=== PATIENT | male | born 1945 | race Caucasian/White ===

== ENCOUNTER 2021-10-11 05:31 | Observation (INO) ==
--- NOTE | 2021-07-19 23:34 | PAT Medication Instructions ---
Medication Instructions Date of Service July 19, 2021 Home Medications hydrochlorothiazide 12.5 mg capsule 25 mg PO QDD amlodipine 5 mg tablet 5 mg PO HS apixaban 5 mg tablet (Eliquis) 5 mg PO BID cholecalciferol (vitamin D3) 25 mcg (1,000 unit) capsule 25 mcg PO QDD losartan 100 mg tablet 100 mg PO QDD metformin 500 mg tablet 500 mg PO QPM metoprolol tartrate 50 mg tablet 50 mg PO BID Spectravite Adult 1 tab PO DAILY tamsulosin 0.4 mg capsule (Flomax) 0.8 mg PO QPM atorvastatin 20 mg tablet 20 mg PO HS echinacea 400 mg capsule 400 mg PO UD PRN loxapine succinate 5 mg capsule 15 mg PO QPM ASK your prescriber and surgeon apixaban 5 mg tablet (Eliquis) 5 mg PO BID STOP taking 2 weeks before surgery (or as soon as possible if surgery is within 2 weeks) echinacea 400 mg capsule 400 mg PO UD PRN Take morning of surgery With a small sip of water, OTHERWISE NOTHING TO EAT OR DRINK AFTER MIDNIGHT: metoprolol tartrate 50 mg tablet 50 mg PO BID Take evening before surgery hydrochlorothiazide 12.5 mg capsule 25 mg PO QDD amlodipine 5 mg tablet 5 mg PO HS cholecalciferol (vitamin D3) 25 mcg (1,000 unit) capsule 25 mcg PO QDD losartan 100 mg tablet 100 mg PO QDD metformin 500 mg tablet 500 mg PO QPM metoprolol tartrate 50 mg tablet 50 mg PO BID Spectravite Adult 1 tab PO DAILY tamsulosin 0.4 mg capsule (Flomax) 0.8 mg PO QPM atorvastatin 20 mg tablet 20 mg PO HS loxapine succinate 5 mg capsule 15 mg PO QPM Other Notes If you have any questions please call us at [phone] or [phone] or [phone] or [phone]
--- NOTE | 2021-07-22 09:43 | Anesthesiology Consultation ---
Date of Service July 22, 2021 Assessment & Plan (1) Encounter for pre-operative examination: - COVID screening: Per assessment on 07/22: Travel screen 07/22, no known COVID-19 positive contacts or current COVID-19 related symptoms. Patient vaccinated. Surgeon arranging preop COVID testing. Awaiting results. - Cardiology office visit (03/04/21): "Patient describes stable cardiac signs and symptoms. He is in atrial fibrillation today, and I plan to increase his metoprolol with regards to helping with better rate control.. 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 Frequent brief asymptomatic salvos of supra ventricular tachycardia were observed, the longest of which was 12.1 seconds. Paroxysmal atrial fibrillation was also noted, with atrial fibrillation burden of 27%, average heart rate while in atrial fibrillation at 89 bpm. We will increase metoprolol." - Eliquis instructions: per surgeon/prescriber - Check BSG AM DOS Chart Review Chart Review: Acceptable Risk for Surgery (pending surgeon-ordered UA) and Patient seen in Pre Admission Testing Teaching & Discussion Pre-Anesthesia Teaching/Discussion Notes: Instructed NPO after midnight before surgery,except medications with 15 cc of water. Medication instructions provided according to the PAT guidelines. History Surgery Operation Date: 08/02/21 07:30 Proposed Procedures p Robotic Laparoscopic Assisted Radical Retropubic Prostatectomy, Possible Open, Possible Pelvic Lymph Node Dissection, Possible Suprapubic Tube Placement - Mike Simeon MD Height/Weight Height: 6 ft 3 in Weight: 85.2 kg Allergies Allergy/AdvReac Type Severity Reaction Status Date / Time No Known Allergies Allergy Unknown Verified 07/15/21 11:06 Medications Home Medications Medication Instructions Recorded Confirmed Last Taken hydrochlorothiazide 12.5 mg capsule 25 mg PO QDD cap 12/15/20 07/15/21 Unknown amlodipine 5 mg tablet 5 mg PO HS 06/01/21 07/15/21 Unknown apixaban 5 mg tablet (Eliquis) 5 mg PO BID 06/01/21 07/15/21 Unknown cholecalciferol (vitamin D3) 25 25 mcg PO QDD 06/01/21 07/15/21 Unknown mcg (1,000 unit) capsule losartan 100 mg tablet 100 mg PO QDD 06/01/21 07/15/21 Unknown metformin 500 mg tablet 500 mg PO QPM 06/01/21 07/15/21 Unknown metoprolol tartrate 50 mg tablet 50 mg PO BID 06/01/21 07/15/21 Unknown multivitamin-ferrous 1 tab PO DAILY 06/01/21 07/15/21 Unknown fumarate-folic acid 18 mg-400 mcg tablet (Spectravite Adult) tamsulosin 0.4 mg capsule (Flomax) 0.8 mg PO QPM cap 06/01/21 07/15/21 Unknown atorvastatin 20 mg tablet 20 mg PO HS 07/15/21 07/15/21 Unknown echinacea 400 mg capsule 400 mg PO UD PRN 07/15/21 07/15/21 Unknown loxapine succinate 5 mg capsule 15 mg PO QPM 07/15/21 07/15/21 Unknown Past Medical History Medical History Afib Follows with Dr. Norwood Enlarged prostate High blood pressure High cholesterol Pre-diabetes on Metformin, hgba1c 12/31/20 was 5.1% Prostate cancer Schizophrenia Dx , controlled with meds Exercise / Class Metabolic Activity II 4-5 Yardwork/Stairs/Walk up hill Past Family History Family History Father Esophageal cancer Past Surgical History Surgical History H/O prostate biopsy History of colonoscopy History of tonsillectomy and adenoidectomy Past Anesthesia History No Hx of Anesthesia Complications and No Family Hx of Anesthesia Complications History of PONV No Hx of PONV and No Hx of Motion Sickness Social History Smoking Status: Never smoker Do You Dip or Chew Tobacco: No Hx Alcohol Use: No Hx Substance Use: No substance use type: does not use Review of Systems Patient denies chest pain, shortness of breath, dyspnea on exertion, fever, chills, cough, wheezing, palpitations. Physical Exam Vital Signs VITALS BP 118/77 P 80 TEMP 97.8 SP02 98%Ra RESP 18 PHYSICAL Full cervical extension range of motion. Full TMJ range of motion. TMD 4 finger breaths Mallampati Score 3 Dentition: several missing sides/molars Lungs: clear throughout to auscultation Cardiac: regular rate and rhythm, no murmurs noted Spine: normal Carotid arteries: negative bruit Extremities: no edema Lab Results Anesthesia Preop Results Results Anesthesia Widget: WBC 6.79 K/uL (4.8-10.8) 07/22/21 Hgb 13.3 g/dL (14.0-18.0) L 07/22/21 Hct 39.6 % (42-52) L 07/22/21 Plt 372 K/uL (130-400) 07/22/21 Na 137 mmol/L (136-145) 07/22/21 K 3.7 mmol/L (3.5-5.1) 07/22/21 Cl 104 mmol/L (98-107) 07/22/21 CO2 27 mmol/L (21-32) 07/22/21 BUN 13 mg/dl (7-18) 07/22/21 Creat 0.98 mg/dl (0.6-1.4) 07/22/21 Glucose Level 101 mg/dl (70-99) H 07/22/21 Blood Type A Positive 07/22/21 Antibody Screen NEGATIVE 07/22/21 Testing Laboratory Results 12/31/20 HGBA1C 5.1% Electrocardiogram Date: 07/22/21 SR with first degree AVB at 76bpm. Otherwise normal ECG. unconfirmed report. Chest X-Ray Date: 07/22/21 COPD pattern. Interval development of opacity at the left base which might represent superimposition of structures or intrapulmonary lesion. This lesion was not definitely seen during CT of abdomen and pelvis performed on May 18, 2021 and could represent superimposition of structure or small atelectasis. Follow-up evaluation with PA and lateral chest radiograph in 4-6 weeks is recommended to document resolution. Report forwarded to PCP for continuity of care. At anesthesiologist discretion AM DOS if repeat CXR needed from their perspective* Echocardiogram Date: 09/07/20 LVEF 60-64%. No regional wall motion abnormality. There was A. fib during exam. Borderline increased concentric LV wall thickness. Mild MR.
[~2021-10-11 05:31] MED LIST: HEPARIN SOD 5,000 UNIT/0.5 ML VIAL SQ SCH; LACTATED RINGER'S 1,000 ML IV SCH; LR 15ML/HR IV SCH
[2021-10-11] MEDS ORDERED: VANCOMYCIN HCL 1,000 MG/270 ML BAG IV SCH (06:00)
[2021-10-11] MEDS ORDERED: HEPARIN SOD 5,000 UNIT/0.5 ML VIAL SQ SCH (06:00)
[2021-10-11] MEDS ORDERED: LR 15ML/HR IV SCH (06:00)
[2021-10-11] MEDS ORDERED: GLYCOPYRROLATE 0.2 MG/ML VIAL ONE (06:52)
[2021-10-11] MEDS ORDERED: LIDOCAINE 2% 2 ML VIAL/AMP(20MG/ML) INFIL ONE (06:52)
[2021-10-11] MEDS ORDERED: ROCURONIUM BROMIDE 10 MG/ML 5 ML VIAL IV ONE ×6 (06:52→10:38)
[2021-10-11] MEDS ORDERED: PROPOFOL IV EMULSION 10 MG/ML 20 ML VIAL IV ONE (06:52)
[2021-10-11] MEDS ORDERED: DEXAMETHASONE SOD INJ 4 MG/ML VIAL ONE (06:52)
[2021-10-11] MEDS ORDERED: ONDANSETRON INJ 2 MG/ML 2 ML VIAL ONE (06:52)
[2021-10-11] MEDS ORDERED: fentaNYL citrate 100 MCG/2 ML VIAL ONE ×2 (06:52→08:57)
[2021-10-11] MEDS ORDERED: ePHEDrine sulfate 50 MG/ML AMP IV PRN (07:16)
[2021-10-11] MEDS ORDERED: HYDROmorphone INJ 1 MG/ML SYRINGE IV PRN (07:16)
[2021-10-11] MEDS ORDERED: ONDANSETRON INJ 2 MG/ML 2 ML VIAL IV PRN ×2 (07:16→13:33)
[2021-10-11] MEDS ORDERED: MEPERIDINE HCL 25 MG/ML CARP/VIAL IV PRN (07:16)
[2021-10-11] MEDS ORDERED: PHENYLEPHRINE 100MCG/ML 5ML SYR IV PRN (07:16)
[2021-10-11] MEDS ORDERED: LABETALOL HCL IV 5 MG/ML 20ML IV PRN (07:16)
[2021-10-11] MEDS ORDERED: fentaNYL citrate 100 MCG/2 ML VIAL IV PRN (07:16)
[2021-10-11] MEDS ORDERED: ATROPINE SULFATE 0.1 MG/ML 10ML SYR IV PRN (07:16)
--- NOTE | 2021-10-11 07:22 | History & Physical Bridge Note ---
Date of Service October 11, 2021 History & Physical Bridge Note I have examined the patient, reviewed the History & Physical and in the interval since the performance of the History & Physical I have noted the following changes of clinical significance: no changes noted
[2021-10-11] MEDS ORDERED: BUPIVACAINE 0.5 % 5 MG/1 ML MPF 30ML VIAL ONE (07:28)
[2021-10-11] MEDS ORDERED: BELLADONNA/OPIUM SUPP 60 MG SUPP PR ONE (07:38)
[2021-10-11] MEDS ORDERED: PHENYLEPHRINE 100MCG/ML 5ML SYR ONE (08:57)
[2021-10-11] MEDS ORDERED: FLOSEAL HEMOSTATIC MATRIX 10ML TOP ONE (11:12)
[2021-10-11] MEDS ORDERED: NEOSTIGMINE METHYLSULFATE 1 MG/ML 10ML VIAL ONE (11:24)
--- NOTE | 2021-10-11 12:12 | Operative Report ---
PG Post Operative Report Pre & Post Diagnosis Operation Date: 10/11/21 07:30 Pre-Op Diagnosis: Prostate Cancer Post-Op Diagnosis: Prostate Cancer I identified the patient and participated in the time-out.: Yes Procedure Operation Date: 10/11/21 07:30 Actual Procedures p Robotic Laparoscopic Assisted Radical Retropubic Prostatectomy,Bilateral Pelvic Lymph Node Dissection(Not Applicable) - Mike Simeon MD Surgeon Augusto Simeon MD Crutching Contractor Kristie Lindsey; Dr. Gavin Mcgill Estimated Blood Loss 50 Findings Consistent with Post-Op Diagnosis Specimens 1. Periprostatic fat 2. Left pelvic lymph nodes 3. Right pelvic lymph nodes 4. Prostate and seminal vesicles. Description of Procedure The patient was identified in the preoperative holding area, appropriate informed consents were reviewed and completed, and he was transported to the operating suite. Subcutaneous heparin was administered in the pre-operative holding area. Upon arrival in the operating suite, he received appropriate antibiotics and general anesthesia. He was positioned in dorsal lithotomy, a B&O suppository was inserted after digital rectal exam, and he was prepped and draped in standard fashion. A Elias catheter was inserted in the sterile field. A Veress needle was passed per umbilicus with uniform insufflation of the abdomen to 15mmHg. He was placed in steep Trendelenburg position. A periumbilical incision was then made to accommodate a 12mm Visiport with 10mm 0degree laparoscope. Inspection of the abdomen was carried out, and there was no evidence of traumatic entry or injury secondary to the Veress needle. After confirming a clear anterior abdominal wall, ports were subsequently placed in standard robotic prostatectomy fashion without incident. To begin the robotic portion of the case, the left lateral aspect of the sigmoid was mobilized off of the left pelvic side wall to allow the pouch of Derrell to be appropriately visualized. I then made an incision in the pouch of Derrell, overlying the seminal vesicles. Both SVs as well as the ampullae of the vasa were entirely dissected, with the vasa transected 3cm from the prostate. Of note, he had relatively diminutive SVs. The medial umbilical ligaments were then controlled with bipolar electrocautery just inferior to the umbilicus. Following cauterization, they were divided utilizing monopolar cautery. A peritoneal incision was carried from this location to the medial aspect of the internal inguinal rings bilaterally with care to avoid opening through the ring. This incision was concluded when the vas deferens was reached. Dissection of the bladder and prostate off of the posterior aspect of the pubic arch was completed allowing full visualization of the prostate. The fat overlying the prostate was removed en bloc and passed off the table as a specimen labeled "periprostatic fat". The endopelvic fascia was cleared during this portion of the procedure, and subsequently opened - first on the right and then the left. The incision through the endopelvic fascia began near the prostate-bladder junction and was carried to the apex with extreme care to preserve all lateral levator musculature as well as the periurethral musculature and sphincter complex. I additionally preserved the puboprostatic ligaments. I then controlled the DVC with a 2-0 V-lock suture in overlapping/figure of 8 fashion. The lymph node dissection was then conducted. External iliac vessels were identified on the pelvic side wall. The packet of fat and lymphatic tissue that resides just under the iliac vein was elevated and off of the vein with a split and roll technique. The packet was dissected laterally to the circumflex vein and distally to the obturator nerve which was preserved. The proximal aspect of the packet was carried towards the bifurcation of the iliac vessels. A combination of monopolar and bipolar cautery were used to assist with control. After completing the dissection on both sides, the packets were collected and passed off of the table as specimens labeled "pelvic lymph nodes". My attention then returned to the prostate, with identification of the bladder neck aided by gentle traction on the Elias catheter and lateral to medial pressure at the presumed level of the bladder neck with the robotic instruments. An anterior cystotomy was made, the Elias balloon deflated and the catheter guided through the incision to allow anterior retraction. I attempted to preserve maximal bladder neck musculature as I circumferentially dissected around the bladder neck. Of note, he had considerable intravesical intrusion into the bladder and I carefully worked my way around this to ensure all prostate tissue was adequately resected. After incision through the posterior aspect of the mucosa, the dissection was carried through detrusor muscle until the bilateral ampullae of the vasa were identified. The previously dissected vasa and SVs were brought through the incision and used to elevated the prostate anteriorly. A posterior plane behind the prostate was then developed - splitting Denonvilliers's fascia. This dissection was carried as far as possible towards the apex as well as far as possible laterally. An incision in the lateral prostatic fascia was then made bilaterally to facilitate control of the vascular pedicles and preservation of the nerve bundles. Vasculature running along the posterior/lateral aspect of the prostate was preserved. The pedicles were then controlled with a series of Weck clips and electrocautery. The apical attachments of the prostate were remaining at that stage. The DVC was divided after control with bipolar cautery over the prostate. Continuous i nspection from anterior and lateral views allowed me to closely follow the apical contour of the prostate and maximally preserve urethral length and tissue. The prostate was entirely freed at that point, and collected in an EndoCatch bag before being moved out of the field of vision. Hemostasis was confirmed and anastomosis of the bladder and urethra was completed utilizing a double armed V-Lock stitch. A new Elias catheter was inserted and the anastomosis tested with irrigation. There was no evidence of leak. A michele style stitch was placed bilaterally to functionally marsupialize the area of the lymph node dissection. The robot was undocked, the specimen extracted through expansion of the sanju- umbilical camera port. The fascia was closed with a series of 0-PDS figure of 8 stitches. The right assistant activities director port was closed in two layers - with a figure of 8 0-Vicryl to reapproximate the fascia followed by 4-0 Monocryl to close the skin. Monocryl was used to close all other skin incisions. All wounds were dressed with Dermabond. The case was concluded and the patient taken to the PACU in stable condition. Kristie Lindsey assisted from incision to closure. Dr. Mcgill performed a portion of the dissection and xavi dissection. I attest to the content of the Intraoperative Record and any orders documented therein. Any exceptions are noted below.
--- NOTE | 2021-10-11 12:45 | Anesthesiology Progress Note ---
Date of Service October 11, 2021 Anesthesia Post Procedure Vital Signs Vital Signs: Temp Pulse Pulse Resp BP Pulse Ox 10/11/21 12:40 82 17 103/61 94 10/11/21 12:30 81 17 99/63 L 94 10/11/21 12:20 88 16 100/63 93 10/11/21 12:12 36.1 C L 101 H 17 102/62 93 10/11/21 06:12 37 C 104 H 20 122/78 94 Transfer of Care Handoff Completed per policy Notes Mental Status: alert / awake / arousable Patient Amnestic to Procedure: Yes Nausea / Vomiting: adequately controlled Pain: adequately controlled Airway Patency, RR, SpO2: stable & adequate BP & HR: stable & adequate Hydration State: stable & adequate Anesthetic Complications: no major complications apparent and Pt Satisfied with anesthetic care Notes: The patient is awake and comfortable. His vital signs are stable.
[2021-10-11 12:58] LABS: Basophils # (auto) 0.01 K/uL (0-0.2); Basophils % (auto) 0.1 %; Hematocrit (blood only) 40.5 % (42-52); Hemoglobin 13.5 g/dL (14.0-18.0); Immature Granulocytes # (auto) 0.03 K/uL (0.00-0.02); Immature Granulocytes % (auto) 0.2 %; Lymphocytes # (auto) 0.62 K/uL (1.2-3.4); Lymphocytes % (auto) 4.2 %; Mean Corpuscular Hemoglobin 32.4 pg (25-34); Mean Corpuscular Volume 97.1 fL (80-100); Mean Platelet Volume 8.5 fL (7.4-10.4); Monocytes # (auto) 0.16 K/uL (0.11-0.59); Monocytes % (auto) 1.1 %; Neutrophils # (auto) 13.89 K/uL (1.4-6.5); Neutrophils % (auto) 94.4 %; Platelet Count 349 K/uL (130-400); RDW Coefficient of Variation 13.2 % (11.5-14.5); RDW Standard Deviation 46.8 fL (36.4-46.3); Red Blood Count 4.17 M/uL (4.7-6.1); White Blood Count 14.71 K/uL (4.8-10.8)
[2021-10-11 13:01] LABS: Mean Corpuscular Hgb Conc 33.3 g/dL (32-36)
[2021-10-11 13:16] LABS: BUN Creatinine Ratio 12.3 (10-20); Calcium 8.7 mg/dl (8.5-10.1); Creatinine Clr Calc Pharmacy 58.4 ml/min; Est GFR (African American) 64.6 ml/min; Est GFR (Non-African American) 55.7 ml/min; Potassium 4.6 mmol/L (3.5-5.1)
[2021-10-11] MEDS ORDERED: ACETAMINOPHEN 325 MG TAB PO PRN (13:33)
[2021-10-11] MEDS ORDERED: MoRPHine SULFATE 2 MG/ML CARP IV PRN (13:33)
[2021-10-11] MEDS ORDERED: MoRPHine SULFATE 4 MG/ML 1 ML CARP\\VIAL IV PRN (13:33)
[2021-10-11] MEDS ORDERED: oxyCODONE HCL IR 5 MG TAB (IMMEDIATE RELEASE) PO PRN ×2 (13:33)
[2021-10-11] MEDS ORDERED: PHARMACY GLYCEMIC MGMT CONSULT PRN (13:33)
[2021-10-11] MEDS: LACTATED RINGER'S 1,000 ML IV SCH ×2 (13:51→23:18)
[2021-10-11] MEDS ORDERED: INSULIN GLARGINE SOLOSTAR 100 UNITS/ML 3 ML PEN SC SCH (14:45)
--- NOTE | 2021-10-11 15:00 | Pharmacy Report ---
Pharmacy Glycemic Short Note 2 - Date of Service October 11, 2021 - Glycemic Short BSG Results (Last 24 hours): 10/11/21 12:36 Glucose 146 H OUTPATIENT ANTIDIABETIC REGIMEN: * Metformin 500 mg QPM * A1c pending ASSESSMENT: * Patient admitted following prostatectomy, ordered clear liquid diet, maintained on orals agent outpatient at home, A1c pending * Stressors include surgery, ?dexamethasone administration in OR * Will give 10 units of lantus now with scale later depending on how BSGs trend, will start novolog between weight based stress of 2 and 3. PLAN FOR INPATIENT GLYCEMIC CONTROL: * Hold outpatient oral diabetes medications * Basal insulin * Lantus 10 units x 1, scale PM 0-18 units * Bolus insulin * NovoLog per scale ACHS or Q6hrs while NPO * Goal Range: Low 110 mg/dL - High 140 mg/dL * Correction Factor: 25 mg/dL/unit * Nutritional / Prandial insulin per carb ratio of 1 unit per 8 grams CHO consumed
[2021-10-11] MEDS: INSULIN ASPART PER UNIT SC SCH ×3 (15:19→20:50)
[2021-10-11] MEDS ORDERED: hydroCHLOROthiazide 25 MG TAB PO SCH (16:30)
[2021-10-11] MEDS ORDERED: CHOLECALCIFEROL 1,000 UNITS 25 MCG TAB PO SCH (16:30)
[2021-10-11] MEDS ORDERED: LOSARTAN POTASSIUM 50 MG TAB PO SCH (16:30)
[2021-10-11] MEDS: ceFAZolin 2000MG 2,000 MG/15 ML SYR IV SCH ×2 (17:03→23:18)
[2021-10-11] MEDS: METOPROLOL TARTRATE 50 MG TAB PO SCH (20:42)
[2021-10-11] MEDS: HEPARIN SOD 5,000 UNIT/0.5 ML VIAL SQ SCH (20:42)
[2021-10-11] MEDS ORDERED: amLODIPine BESYLATE 5 MG TAB PO SCH (21:00)
[2021-10-11] MEDS ORDERED: ATORVASTATIN 20 MG TAB PO SCH (21:00)
[2021-10-11] MEDS ORDERED: INSULIN GLARGINE SOLOSTAR 100 UNITS/ML 3 ML PEN SC ONE (21:00)
[2021-10-12] MEDS: INSULIN ASPART PER UNIT SC SCH ×3 (00:18→09:15)
--- NOTE | 2021-10-12 07:45 | Pharmacy Report ---
Pharmacy Glycemic Short Note 2 - Date of Service October 12, 2021 - Glycemic Short BSG Results (Last 24 hours): 10/11/21 10/11/21 10/11/21 12:36 17:30 19:13 Glucose 146 H POC Glucose 145 H 244 H 10/11/21 10/12/21 10/12/21 20:07 00:13 03:54 Glucose POC Glucose 189 H 130 H 98 10/12/21 05:59 Glucose POC Glucose 111 H OUTPATIENT ANTIDIABETIC REGIMEN: * Metformin 500 mg QPM * HbA1c: 5.2% (10/12/21) ASSESSMENT: 10/12/21: * Mr Chavira received one small dose of Lantus yesterday evening, in case steroids were given in the OR and he required additional coverage. * BSGs remained stable overnight. * It does not appear as though additional basal insulin is required at this time. Will continue with Novolog coverage until it is appropriate to resume his Metformin. * Pharmacy will likely sign off of consult tomorrow if BSGs remain stable on Novolog. 10/11 * Patient admitted following prostatectomy, ordered clear liquid diet, maintained on orals agent outpatient at home, A1c pending * Stressors include surgery, ?dexamethasone administration in OR * Will give 10 units of lantus now with scale later depending on how BSGs trend, will start novolog between weight based stress of 2 and 3. PLAN FOR INPATIENT GLYCEMIC CONTROL: * Hold outpatient oral diabetes medications * Basal insulin * Lantus 8 units SQ x1 dose given last evening * none at this time * Bolus insulin * NovoLog per scale ACHS or Q6hrs while NPO * Goal Range: Low 110 mg/dL - High 140 mg/dL * Correction Factor: 25 mg/dL/unit * Nutritional / Prandial insulin per carb ratio of 1 unit per 8 grams CHO consumed DISCHARGE PLANNING: * A1c: 5.2% * This indicates excellent glycemic control. Expect that pt may resume home regimen on discharge, as long as no contraindications exist and patient does not report episodes of hypoglycemia on current home regimen.
[2021-10-12 07:57] LABS: Basophils # (auto) 0.02 K/uL (0-0.2); Basophils % (auto) 0.1 %; Hematocrit (blood only) 39.1 % (42-52); Hemoglobin 13.7 g/dL (14.0-18.0); Immature Granulocytes # (auto) 0.02 K/uL (0.00-0.02); Immature Granulocytes % (auto) 0.1 %; Lymphocytes # (auto) 1.14 K/uL (1.2-3.4); Lymphocytes % (auto) 7.7 %; Mean Corpuscular Hemoglobin 33.3 pg (25-34); Mean Corpuscular Volume 95.1 fL (80-100); Mean Platelet Volume 8.4 fL (7.4-10.4); Monocytes # (auto) 0.83 K/uL (0.11-0.59); Monocytes % (auto) 5.6 %; Neutrophils # (auto) 12.84 K/uL (1.4-6.5); Neutrophils % (auto) 86.5 %; Platelet Count 323 K/uL (130-400); RDW Coefficient of Variation 13.6 % (11.5-14.5); RDW Standard Deviation 47.3 fL (36.4-46.3); Red Blood Count 4.11 M/uL (4.7-6.1); White Blood Count 14.85 K/uL (4.8-10.8)
[2021-10-12] MEDS: METOPROLOL TARTRATE 50 MG TAB PO SCH (08:18)
[2021-10-12] MEDS: HEPARIN SOD 5,000 UNIT/0.5 ML VIAL SQ SCH (08:20)
[2021-10-12 08:21] LABS: Estimated Average Glucose 103 mg/dl; Hemoglobin A1C 5.2 % (4.5-5.6)
--- NOTE | 2021-10-12 08:25 | Urology Progress Note ---
Date of Service October 12, 2021 Assessment & Plan (1) Prostate cancer: Plan: pod #1 s/p RARP with LND - DOMINGO out today - ambulate - if he continues to progress, dc home later this AM - awaiting labs - good UoP overnight - plan to hold eliquis until Sunday Admission and Anticipated Discharge Date Admission Date: October 11, 2021 Subjective Doing very well no major pain or issues has not ambulated yet urine cleared low DOMINGO outpt no nausea/vomiting passing some flatus Physical Exam Physical Exam: incisions appropriate, minimal bruising urine clear domingo with scant serosang outpt Results & Data ([facility]) Vital Signs (Past 12 Hours) Vital Signs Temp Pulse Resp BP BP Pulse Ox 10/12/21 07:15 36.8 C 145 H 16 126/81 92 10/11/21 23:00 36.9 C 73 20 107/67 94 PG Care Time/CCT Total # of Minutes Spent Total Time Spent with Patient: Total time spent is greater than 50% in coordination of care (as documented) at patient's floor/unit and/or counseling patient: Coding Level of Care Code None Diagnoses Prostate cancer C61
[2021-10-12 08:45] LABS: BUN Creatinine Ratio 14.6 (10-20); Calcium 8.5 mg/dl (8.5-10.1); Creatinine Clr Calc Pharmacy 78.8 ml/min; Est GFR (African American) 92.7 ml/min; Est GFR (Non-African American) 79.9 ml/min; Potassium 2.9 mmol/L (3.5-5.1)
[2021-10-12] MEDS: LACTATED RINGER'S 1,000 ML IV SCH (09:52)
[2021-10-12] MEDS ORDERED: POTASSIUM CHLORIDE CRTAB 20 MEQ TABCR PO STA (11:14)
--- NOTE | 2021-10-13 07:44 | Discharge Summary ---
Date of Service October 13, 2021 Principal Diagnosis Prostate cancer Discharge Data Allergies Allergy/AdvReac Type Severity Reaction Status Date / Time No Known Allergies Allergy Unknown Verified 09/28/21 09:45 Procedures Performed Operation Date: 10/11/21 07:30 Actual Procedures p Robotic Laparoscopic Assisted Radical Retropubic Prostatectomy,Bilateral Pelvic Lymph Node Dissection(Not Applicable) - Mike Simeon MD Hospital Course (1) Prostate cancer: Patient admitted for a robotic prostatectomy - details of the procedure as dictated previously in my operative report - in summary, he tolerated the procedure very well - he was in stable condition overnight with appropriate urine output and stable labs - he was subsequently discharged home with a hill catheter - he was in stable condition at the time of discharge Total Time Total Time Spent Total Time Spent (In Minutes): 10 Discharge Plan Discharge Items Patient Disposition: Home - Self-Care Reason For Visit: Prostate Cancer Cell Discharge Diagnosis: Prostate Cancer Activity: Per Instructions section Lifting: No more than 25 pounds Bathing Comment: Okay to shower after discharge, no tub bath or soaking Sexual Activity: Wait until after follow-up appointment Exercise/Sports: Wait until after follow-up appointment Driving/Machine Use: No driving while taking prescription pain medication Non-emergency contact: Surgeon Call non-emergency contact if: your pain is not controlled, your pain is worsen ing, your pain is concerning for you, you have a fever, your temperature is above 101, your wound has increased redness, your wound has increased drainage and your wound pain has increased Follow-up/Referrals: Mike Simeon MD [Physician] - 10/26/21 3:00 pm (Post op appointment) Jamari Guidry MD [Primary Care Provider] - [facility],Nurse [FAKE FOR SCHEDULES] - 10/18/21 9:00 am (Voiding trial/catheter removal) Diet: Carb Consistent or DM2 Ambulatory Orders: Basic Metabolic Panel (Routine) Timeframe: 2 Days Facility: [facility] - Location: Laboratory Main [place] Ordered By: Kristie Gonzalez Attending Provider Instructions: Please take all medications as prescribed and keep all follow-ups as scheduled. Please call our office at [phone] with any questions, concerns or need to reschedule appointments for any reason. We are happy to assist you. We have sent an antibiotic to your pharmacy of choice. Please begin antibiotic as prescribed the day BEFORE your scheduled voiding trial at [facility]. Please continue antibiotic every 12 hours through the day AFTER your voiding trial. Okay to resume Eliquis on Sunday. Please go to lab in 2 days to repeat lab work to check your potassium. Activity: We recommend having someone with you for the first few days after surgery to help care for you. For the first 2 weeks after surgery, we would like you to get up and walk around your house. However, we recommend limit physical activity that would increase your heart rate. This will allow your body to rest and heal. Take naps if you feel tired. Don't lift anything heavier than 10 pounds, mow the law or ride a bicycle until your follow-up appointment. Please avoid long car rides. Home Care: Unless directed otherwise, drink 6 to 8 glasses of water a day (enough to keep your urine light colored). This will also help keep a healthy flow of urine. We recommend using a stool softener for the first two weeks to avoid constipation. Hill Catheter or Suprapubic Catheter care: Keep the catheter well secured with either a leg back or leg strap with large bag. Empty your bag when it's about half full. You may notice some blood in the bag. This is normal after surgery and while the catheter is in place. Use mild soap (such as Dove or Dial) and water to wash the catheter and the head of your penis daily, or more frequently if needed. Return to your normal diet, we encourage good protein intake to promote heali ng. You may shower as normal. Please avoid tub baths or soaking until catheter removed and incisions well healed. Wearing sweat pants while you have the catheter is recommended, they will be more comfortable. Follow-up Your follow up appointments for having your catheter removed, and follow up with your physician should already be scheduled. If you have any questions regarding this, please contact our office. Your final pathology report will be discussed at your physician follow-up appointment. Call [facility] at [phone] right away if you have any of the following: Chest pain or trouble breathing (call 911 or go to the hospital) Fever of 101F or higher, uncontrolled vomiting Heavy bleeding, clots, or bright red blood from the catheter Catheter that falls out or stops draining Foul-smelling discharge from your catheter Redness, swelling, warmth, or increased pain at your incision site Drainage, pus, or bleeding from your incision Pending Studies at Discharge: Yes Studies:: Pathology Stand-Alone Forms: My [facility], Smoking Cessation Medications and DC Order Prescriptions: New oxycodone-acetaminophen [Percocet] 5-325 mg tablet 1 tab PO TID PRN (Reason: pain) Qty: 10 RF: 0 docusate sodium [Colace] 100 mg capsule 100 mg PO BID Qty: 60 RF: 0 Continued losartan 100 mg tablet 100 mg PO QDD RF: 0 metformin 500 mg tablet 500 mg PO QPM RF: 0 cholecalciferol (vitamin D3) 25 mcg (1,000 unit) capsule 25 mcg PO QDD RF: 0 Spectravite Adult 18-400 mg-mcg tablet 1 tab PO DAILY RF: 0 metoprolol tartrate 50 mg tablet 50 mg PO BID RF: 0 Eliquis 5 mg tablet 5 mg PO BID RF: 0 amlodipine 5 mg tablet 5 mg PO HS RF: 0 sulfamethoxazole-trimethoprim [Bactrim DS] 800-160 mg tablet 1 tab PO BID 3 Days Qty: 6 RF: 0 hydrochlorothiazide 12.5 mg capsule 25 mg PO QDD RF: 0 atorvastatin 20 mg Tablet 20 mg PO HS RF: 0 echinacea 400 mg Capsule 400 mg PO UD PRN (Reason: COLD SYMPTOMS ) RF: 0 loxapine succinate 5 mg Capsule 15 mg PO QPM RF: 0 Discontinued tamsulosin [Flomax] 0.4 mg capsule 0.8 mg PO QPM RF: 0 Discharge Orders: Discharge Order (Routine); Ordered 10/12/21 Ordered By: Kristie Johnson/Other Patient Handouts: Emptying and Cleaning Your ..., Indwelling Urinary Catheter Dc, Leg Bag Care Dc Admission Data Admit Date/Time: 10/11/21 12:12 Attending Provider: Mike Simeon Admit Provider: Mike Simeon Primary Care Provider: Jamari Guidry Other Interventions: Discharge Summary Assessment (RN) Last Done: 10/12/21 12:03 Coding Level of Care Code D/C DAY MANAGEMENT <30 MINS Diagnoses Prostate cancer C61
== END 2021-10-12 13:08 | disposition home or self-care (01) ==
LOC: ASU 05:31 → 3N 05:31 → INTOOBSV 12:12 → OBSVTOIN 12:12

== ENCOUNTER 2024-01-07 15:35 | Inpatient (IN) ==
[2024-01-07 16:47] LABS: Basophils # (auto) 0.02 K/uL (0.00-0.20); Basophils % (auto) 0.2 %; Hemoglobin 14.1 g/dl (14.0-18.0); Immature Granulocytes # (auto) 0.05 K/uL (0.01-0.20); Immature Granulocytes % (auto) 0.4 %; Lymphocytes # (auto) 0.58 K/uL (1.20-3.40); Lymphocytes % (auto) 4.9 %; Mean Corpuscular Hemoglobin 34.7 pg (25.0-34.0); Mean Corpuscular Hgb Conc 37.1 g/dL (32.0-36.0); Mean Corpuscular Volume 93.6 fL (80.0-100.0); Mean Platelet Volume 8.4 fL (9.4-12.4); Monocytes # (auto) 0.96 K/uL (0.11-0.59); Monocytes % (auto) 8.1 %; Neutrophils # (auto) 10.23 K/uL (1.40-6.50); Neutrophils % (auto) 86.4 %; Platelet Count 276 K/uL (130-400); RDW Coefficient of Variation 12.7 % (11.5-14.5); RDW Standard Deviation 43.6 fL (36.4-46.3); Red Blood Count 4.06 M/uL (4.70-6.10); White Blood Count 11.84 K/ul (4.8-10.8)
[2024-01-07 16:56] LABS: BUN Creatinine Ratio 9.6 (10-20); Calcium 8.8 mg/dl (8.6-10.3); Creatinine Clr Calc Pharmacy 74.9 ml/min; Est GFR (African American) 88.4 ml/min; Est GFR (Non-African American) 76.3 ml/min; Potassium 3.7 mmol/L (3.5-5.1)
[2024-01-07 17:04] LABS: iSTAT Creatinine 0.9 mg/dl (0.6-1.3); iSTAT Hemoglobin 12.2 g/dl (14.0-18.0); iSTAT Ionized Calcium 1.06 mmol/l (1.12-1.32); iSTAT Potassium 3.8 mmol/L (3.3-5.0)
[2024-01-07] MEDS: SODIUM CHLORIDE 0.9% 1,000 ML IV SCH (17:27)
[2024-01-07] MEDS: OPTIRAY 320 125ml IV ONE (17:35)
--- NOTE | 2024-01-07 17:44 | CT Scan Report ---
CT OF THE HEAD WITHOUT CONTRAST CLINICAL HISTORY: dizziness fall on eliquis COMPARISON STUDY: No previous studies for comparison. CT DOSE: 1485.19 mGy.cm TECHNIQUE: Helical axial images of the head were obtained without IV contrast. Automated exposure con trol was utilized for the study. A dose lowering technique was utilized adhering to the principles o f ALARA. FINDINGS: No acute intracranial hemorrhage, midline shift or mass effect is present. Mild ventricular dilatation is due to central atrophy. The basal cisterns are patent. No extra-axial collections are present. There are no findings to suggest acute dural sinus thrombosis or acute territorial infarct. No significant calvarial abnormalities are present. Visualized portions of the sinuses and mastoid ai r cells are clear. IMPRESSION: 1. No acute intracranial findings. 2. No calvarial fracture. ACT 112: Negative or not required by law. Electronically signed by: Matt Martinez M.D. 01/07/2024 5:42 PM
--- NOTE | 2024-01-07 17:46 | CT Scan Report ---
CT OF THE CERVICAL SPINE WITHOUT CONTRAST CLINICAL HISTORY: dizziness fall on eliquis COMPARISON STUDY: No previous studies for comparison. TECHNIQUE: Helical axial images of the cervical spine were obtained without IV contrast. Sagittal a nd coronal reconstructions were viewed. Automated exposure control was utilized for the study. A do se lowering technique was utilized adhering to the principles of ALARA. FINDINGS: There is slight reversal of the cervical lordosis. Vertebral body heights are maintained. N o acute cervical spine fracture or subluxation is present. There is no prevertebral edema. Facet join ts are intact. There is moderate multilevel disc space narrowing, endplate osteophytosis and facet a rthrosis within the cervical spine. IMPRESSION: No acute cervical spine fracture or subluxation. ACT 112: Negative or not required by law. Electronically signed by: Matt Martinez M.D. 01/07/2024 5:45 PM
--- NOTE | 2024-01-07 17:49 | CT Scan Report ---
CT ANGIOGRAPHY OF THE NECK WITH CONTRAST CLINICAL HISTORY: dizziness fall on eliquis COMPARISON STUDY: No previous studies for comparison. Technique: CT angiography of the carotid and vertebral arteries was obtained using Optiray and 3D rec onstruction on an independent workstation. NASCET criteria was utilized. Automated exposure control was utilized for the study. A dose lowering technique was utilized adhering to the principles of ALA RA. Findings: Visualized portions of the lung apices are unremarkable. There is no cervical spine fractur e. No cervical lymphadenopathy is present. The bilateral common carotid, cervical internal carotid an d vertebral arteries are patent. This exam is mildly compromised by motion artifact. No stenosis or d issection within these vessels is present. There is moderate atherosclerotic plaque of the aortic arc h. The left vertebral artery is dominant. CTA of the head will be reported separately. IMPRESSION: No stenosis or dissection within the bilateral common carotid, cervical internal carotid or vertebral arteries. ACT 112: Negative or not required by law. Electronically signed by: Matt Martinez M.D. 01/07/2024 5:47 PM
--- NOTE | 2024-01-07 18:01 | CT Scan Report ---
CTA ANGIOGRAPHY OF THE HEAD CLINICAL HISTORY: dizziness fall on eliquis COMPARISON STUDY: No previous studies for comparison. TECHNIQUE: Helical axial images of the head were obtained following uneventful intravenous administr ation of 119 cc of Optiray. Sagittal and coronal reconstructions were viewed as well as maximal inten sity projections on an independent 3-D workstation. Automated exposure control was utilized for the study. A dose lowering technique was utilized adhering to the principles of ALARA. FINDINGS: Please note that the head CT will be reported separately. No acute intracranial hemorrhage was evident on that exam. Mild ventricular dilatation is due to central atrophy. Basal cisterns are p atent. There are no extra axial collections. The bilateral M1, M2, A1 and A2 segments are patent. No vessel occlusion is identified. There is no intracranial aneurysm. Posterior circulation is intact. L eft vertebral artery is dominant. There is mild plaque within the intracranial portion of the left ve rtebral artery without stenosis. Basilar artery and posterior cerebral arteries are patent. IMPRESSION: No central vessel occlusion. No intracranial aneurysm. ACT 112: Negative or not required by law. Electronically signed by: Matt Martinez M.D. 01/07/2024 5:59 PM
--- NOTE | 2024-01-07 18:35 | Emergency Department Note ---
History of Present Illness General Chief complaint: Fall Time Seen by Provider: 01/07/24 16:06 History of Present Illness Provider complaint: Fall Onset (ago): day(s) 1 79-year-old male presents emergency department for dizziness and fall. Patient is on Eliquis. Patient states he was walking down to help and suddenly became very dizzy like the room was spinning and then he fell and hit his head. Patient reports she was having headache but is no longer having 1. He reports some neck pain also. No nausea vomiting or diarrhea. No chest pain or difficulty breathing. Home Medications Medication Instructions Recorded Confirmed Type amlodipine 5 mg tablet 5 mg PO HS 06/01/21 08/09/22 History apixaban 5 mg tablet (Eliquis) 5 mg PO BID 06/01/21 08/09/22 History cholecalciferol (vitamin D3) 25 25 mcg PO QDD 06/01/21 08/09/22 History mcg (1,000 unit) capsule losartan 100 mg tablet 100 mg PO QDD 06/01/21 08/09/22 History metoprolol tartrate 50 mg tablet 50 mg PO BID 06/01/21 08/09/22 History atorvastatin 20 mg tablet 20 mg PO QAM 07/15/21 08/09/22 History echinacea 400 mg capsule 400 mg PO UD PRN boost immune 07/15/21 08/09/22 History system loxapine succinate 5 mg capsule 15 mg PO QPM 07/15/21 08/09/22 History hydrochlorothiazide 25 mg tablet 25 mg PO QDD 04/07/22 08/09/22 History triamcinolone acetonide 0.1 % 1 applic topical DAILY PRN Rash 04/07/22 08/09/22 History topical cream docusate sodium 100 mg capsule 100 mg PO BID 07/23/22 08/09/22 History metformin 500 mg tablet,extended 500 mg PO DAILY 07/23/22 08/09/22 History release 24 hr multivitamin with minerals 1 tab PO DAILY 07/23/22 08/09/22 History cefdinir 300 mg capsule 300 mg PO BID #20 caps 09/18/22 Rx oxybutynin chloride 5 mg tablet 5 mg PO DAILY #30 tabs 03/16/23 Rx Allergies Allergy/AdvReac Type Severity Reaction Status Date / Time No Known Allergies Allergy Unknown Verified 10/12/22 14:27 Past Med/Surg History Medical History History of prostate cancer Dx 06/2021; s/p prostatectomy Pre-diabetes On Metformin, Hgb A1C 09/2021 was 5.2 Afib On Eliquis daily--Follows with Dr. Norwood Schizophrenia Dx , controlled with meds High cholesterol High blood pressure Surgical History History of left cataract extraction History of right cataract extraction History of radical prostatectomy (~10/11/21) History of colonoscopy H/O prostate biopsy History of tonsillectomy and adenoidectomy Family History Father Esophageal cancer Other No family history of adverse response to anesthesia Social History Smoking Status: Never smoker Second Hand Exposure: No; Do You Dip or Chew Tobacco: No; Hx Alcohol Use: Yes Alcohol type: wine Hx Substance Use: No Preferred Language: Yi Communication Ability: Effective Visual Impairment: No Limitations Hearing Ability: Normal Boat Hop Required: No Beliefs That Will Affect Care: None marital status: Single Current Living Situation: Alone current occupational status: other 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 Feels Safe at Home: Yes Diet: regular caffeine: Yes Dental Care, Regularly: Yes Physical Activity Frequency: 3-4 Times per Week Assistive Devices: Glasses Physical Exam Vital Signs Vital Signs - 24 hr 01/07/24 15:41 01/07/24 15:46 01/07/24 15:55 Temperature 36.8 C Temperature Source Axillary Pulse Rate 96 H 96 H 96 H Pulse Rate from SpO2 Sensor 95 H Pulse Rhythm Regular Pulse Strength Normal Respiratory Rate 20 21 Respiratory Effort / Characteristics Non-Labored Spontaneous Respiratory Depth Normal Respiratory Pattern Regular Blood Pressure 119/70 118/74 Blood Pressure Mean 86 88 Blood Pressure Position Lying Pulse Oximetry 96 94 Oxygen Delivery Method Room Air Sepsis Recent Fever Within 48 Hours No Sepsis New/Unexplained Change in Mental Status N/A Sepsis Action Taken by Nursing No Action Required 01/07/24 16:30 01/07/24 17:00 01/07/24 17:30 Temperature Temperature Source Pulse Rate 91 H 86 94 H Pulse Rate from SpO2 Sensor 93 H 98 H Pulse Rhythm Pulse Strength Respiratory Rate 17 22 19 Respiratory Effort / Characteristics Respiratory Depth Respiratory Pattern Blood Pressure 135/86 140/83 130/73 Blood Pressure Mean 102 102 92 Blood Pressure Position Pulse Oximetry 94 95 Oxygen Delivery Method Sepsis Recent Fever Within 48 Hours Sepsis New/Unexplained Change in Mental Status Sepsis Action Taken by Nursing Physical Exam GENERAL: He is oriented to person, place, and time. He appears well-developed and well-nourished. He does not appear distressed. HENT: Exam performed. - Head: Normocephalic and atraumatic. EYES: Conjunctivae and EOM are normal. Pupils are equal, round, and reactive to light. Right eye exhibits no discharge. Left eye exhibits no discharge. No scleral icterus. NECK: Normal range of motion. Neck supple. No JVD present. No spinous process tenderness present. No rigidity. No tracheal deviation and normal range of motion present. CV: Normal rate, regular rhythm, normal heart sounds and intact distal pulses. There is no peripheral edema. Palpable radial pulses bue. PULM/CHEST: Effort normal and breath sounds normal. No respiratory distress. No stridor. He has no wheezes. He has no rales. ABD: The abdomen is soft. MUSC/SKEL: Normal range of motion. There is no peripheral edema, tenderness or deformity. LYMPH: No cervical adenopathy. NEURO: He is alert and oriented to person, place, and time. He has normal strength. No cranial nerve deficit or sensory deficit. Coordination and gait normal. GCS eye subscore is 4. GCS verbal subscore is 5. GCS motor subscore is 6. Cerebellar tests wnl. SKIN: Skin is warm and dry. He is not diaphoretic. PSYCH: He has a normal mood and affect. Behavior is normal. Judgment and thought content normal. Course Course 1606: The patient was evaluated in room B7. A complete history and physical exam was performed Cardiac monitoring: An order was placed for continuous cardiac monitoring. The monitor shows a rate of 90 with sinus rhythm interpreted by me 1832: Vital signs stable. Labs within normal limits with exception of a sodium of 126. Imaging within normal limits. Patient has had no seizure-like activity. No need for hypertonic saline. Patient's sodium will be gently corrected with normal saline. Patient be admitted to the [facility] team. Administered Medications Sodium Chloride (Nss) 1,000 mls @ 80 mls/hr IV .[id number] [facility] Stop: 02/06/24 17:14 Last Admin: 01/07/24 17:27 Dose: 80 mls/hr Documented By: NAMRATA Discontinued Medications Ioversol (Optiray 320 125ml) 119 ml IV ONCE ONE Stop: 01/07/24 17:36 Last Admin: 01/07/24 17:35 Dose: 119 ml Documented By: NIR Medical Decision Making Laboratory Data Attestation: I reviewed the patient's lab results. 01/07/24 15:57 01/07/24 15:57 Lab Results 01/07/24 01/07/24 01/07/24 Range/Units 15:57 16:52 17:38 WBC 11.84 H (4.8-10.8) K/ul RBC 4.06 L (4.70-6.10) M/uL Hgb 14.1 (14.0-18.0) g/dl POC Hgb 12.2 L (14.0-18.0) g/dl Hct 38.0 L (42.0-52.0) % POC Hct 36 L (42-52) % MCV 93.6 (80.0-100.0) fL MCH 34.7 H (25.0-34.0) pg MCHC 37.1 H (32.0-36.0) g/dL RDW Std Deviation 43.6 (36.4-46.3) fL RDW Coeff of Roby 12.7 (11.5-14.5) % Plt Count 276 (130-400) K/uL MPV 8.4 L (9.4-12.4) fL Immature Gran % (Auto) 0.4 % Neut % (Auto) 86.4 % Lymph % (Auto) 4.9 % Free[place] % (Auto) 8.1 % Eos % (Auto) 0.0 % Baso % (Auto) 0.2 % Neut # (Auto) 10.23 H (1.40-6.50) K/uL Lymph # (Auto) 0.58 L (1.20-3.40) K/uL [place] # (Auto) 0.96 H (0.11-0.59) K/uL Eos # (Auto) 0.00 (0.00-0.50) K/uL Baso # (Auto) 0.02 (0.00-0.20) K/uL Immature Gran # (Auto) 0.05 (0.01-0.20) K/uL POC Sodium 126 L (135-144) mmol/L Sodium 125 L (136-145) mmol/L POC Potassium 3.8 (3.3-5.0) mmol/L Potassium 3.7 (3.5-5.1) mmol/L POC Chloride 91 L (101-112) mmol/L Chloride 92 L (98-107) mmol/L Carbon Dioxide 25 (21-32) mmol/L POC Total CO2 27 (24-31) mmol/L Anion Gap 8 (3-11) POC Anion Gap 14.0 L (16-25) mmol/L POC BUN 8 (7-18) mg/dl BUN 9 (6-23) mg/dl Creatinine 0.94 (0.6-1.4) mg/dl POC Creatinine 0.9 (0.6-1.3) mg/dl Est Cr Clr Drug Dosing 74.9 ml/min Est GFR ( Amer) 88.4 ml/min Est GFR (Non-Af Amer) 76.3 ml/min BUN/Creatinine Ratio 9.6 L (10-20) Glucose 147 H (70-99(Fasting)) mg/dl POC Glucose (other) 119 H (70-99) mg/dl Calcium 8.8 (8.6-10.3) mg/dl POC Ioniz Calcium Keith 1.06 L (1.12-1.32) mmol/l Ethyl Alcohol mg/dL < 10.0 (<10.0) mg/dl Imaging Data Attestation: I personally reviewed and interpreted this imaging study as follows: My Impression: CT head: No ICH Radiologist's Impression: Cervical Spine CT 01/07/24 16:14 CT OF THE CERVICAL SPINE WITHOUT CONTRAST CLINICAL HISTORY: dizziness fall on eliquis COMPARISON STUDY: No previous studies for comparison. TECHNIQUE: Helical axial images of the cervical spine were obtained without IV contrast. Sagittal and coronal reconstructions were viewed. Automated exposure control was utilized for the study. A dose lowering technique was utilized adhering to the principles of ALARA. FINDINGS: There is slight reversal of the cervical lordosis. Vertebral body heights are maintained. No acute cervical spine fracture or subluxation is present. There is no prevertebral edema. Facet joints are intact. There is moderate multilevel disc space narrowing, endplate osteophytosis and facet arthrosis within the cervical spine. IMPRESSION: No acute cervical spine fracture or subluxation. ACT 112: Negative or not required by law. Electronically signed by: Matt Martinez M.D. 01/07/2024 5:45 PM Head CTA 01/07/24 16:14 CTA ANGIOGRAPHY OF THE HEAD CLINICAL HISTORY: dizziness fall on eliquis COMPARISON STUDY: No previous studies for comparison. TECHNIQUE: Helical axial images of the head were obtained following uneventful intravenous administration of 119 cc of Optiray. Sagittal and coronal reconstructions were viewed as well as maximal intensity projections on an independent 3-D workstation. Automated exposure control was utilized for the study. A dose lowering technique was utilized adhering to the principles of ALARA. FINDINGS: Please note that the head CT will be reported separately. No acute intracranial hemorrhage was evident on that exam. Mild ventricular dilatation is due to central atrophy. Basal cisterns are patent. There are no extra axial collections. The bilateral M1, M2, A1 and A2 segments are patent. No vessel occlusion is identified. There is no intracranial aneurysm. Posterior circulation is intact. Left vertebral artery is dominant. There is mild plaque within the intracranial portion of the left vertebral artery without stenosis. Basilar artery and posterior cerebral arteries are patent. IMPRESSION: No central vessel occlusion. No intracranial aneurysm. ACT 112: Negative or not required by law. Electronically signed by: Matt Martinez M.D. 01/07/2024 5:59 PM Neck CTA 01/07/24 16:14 CT ANGIOGRAPHY OF THE NECK WITH CONTRAST CLINICAL HISTORY: dizziness fall on eliquis COMPARISON STUDY: No previous studies for comparison. Technique: CT angiography of the carotid and vertebral arteries was obtained using Optiray and 3D reconstruction on an independent workstation. NASCET criteria was utilized. Automated exposure control was utilized for the study. A dose lowering technique was utilized adhering to the principles of ALARA. Findings: Visualized portions of the lung apices are unremarkable. There is no cervical spine fracture. No cervical lymphadenopathy is present. The bilateral common carotid, cervical internal carotid and vertebral arteries are patent. This exam is mildly compromised by motion artifact. No stenosis or dissection within these vessels is present. There is moderate atherosclerotic plaque of the aortic arch. The left vertebral artery is dominant. CTA of the head will be reported separately. IMPRESSION: No stenosis or dissection within the bilateral common carotid, cervical internal carotid or vertebral arteries. ACT 112: Negative or not required by law. Electronically signed by: Matt Martinez M.D. 01/07/2024 5:[address] 01/07/24 16:15 CT OF THE HEAD WITHOUT CONTRAST CLINICAL HISTORY: dizziness fall on eliquis COMPARISON STUDY: No previous studies for comparison. CT DOSE: 1485.19 mGy.cm TECHNIQUE: Helical axial images of the head were obtained without IV contrast. Automated exposure control was utilized for the study. A dose lowering technique was utilized adhering to the principles of ALARA. FINDINGS: No acute intracranial hemorrhage, midline shift or mass effect is present. Mild ventricular dilatation is due to central atrophy. The basal cisterns are patent. No extra-axial collections are present. There are no findings to suggest acute dural sinus thrombosis or acute territorial infarct. No significant calvarial abnormalities are present. Visualized portions of the sinuses and mastoid air cells are clear. IMPRESSION: 1. No acute intracranial findings. 2. No calvarial fracture. ACT 112: Negative or not required by law. Electronically signed by: Matt Martinez M.D. 01/07/2024 5:42 PM ECG Data Attestation: I personally reviewed and interpreted this ECG as follows: Rate (beats per minute): 92 Rhythm: + normal sinus ECG Intervals/blocks: + First degree AV block, + Normal QRS and + Normal QT-c ECG ST segments: + Normal ST segments [facility] Narrative 1606: The patient was evaluated in room B7. A complete history and physical exam was performed Cardiac monitoring: An order was placed for continuous cardiac monitoring. The monitor shows a rate of 90 with sinus rhythm interpreted by mn 1832: Vital signs stable. Labs within normal limits with exception of a sodium of 126. Imaging within normal limits. Patient has had no seizure-like activity. No need for hypertonic saline. Patient's sodium will be gently corrected with normal saline. Patient be admitted to the [facility] team. Impression & Plan Hyponatremia Discharge Plan Visit Data Chief Complaint: Fall ED Provider: Lauro Putnam Discharge Problem: Hyponatremia Patient Disposition: Admitted As Inpatient Forms Stand Alone Forms: [facility] Prescriptions Prescriptions: No Action losartan 100 mg tablet 100 mg PO QDD cholecalciferol (vitamin D3) 25 mcg (1,000 unit) capsule 25 mcg PO QDD metoprolol tartrate 50 mg tablet 50 mg PO BID Eliquis 5 mg tablet 5 mg PO BID amlodipine 5 mg tablet 5 mg PO HS cefdinir 300 mg capsule 300 mg PO BID Qty: 20 3RF oxybutynin chloride 5 mg tablet 5 mg PO DAILY Qty: 30 0RF atorvastatin 20 mg Tablet 20 mg PO QAM echinacea 400 mg Capsule 400 mg PO UD PRN (Reason: boost immune system) Rx Instructions: use for cold symptoms loxapine succinate 5 mg Capsule 15 mg PO QPM hydrochlorothiazide 25 mg Tablet 25 mg PO QDD triamcinolone acetonide 0.1 % Cream 1 applic TOPICAL DAILY PRN (Reason: Rash) docusate sodium 100 mg capsule 100 mg PO BID metformin 500 mg tablet extended release 24 hr 500 mg PO DAILY multivitamin with minerals Tablet 1 tab PO DAILY Referrals Referrals: Jamari Guidry MD [Primary Care Provider] -
--- NOTE | 2024-01-07 19:19 | History & Physical Report ---
Date of Service January 07, 2024 Assessment & Plan (1) Hyponatremia: Plan: - Admit to med telemetry - Patient is found to be hyponatremic sodium 126 on arrival, recheck BMP now and Q4H to monitor - Check urine sodium, urine creatinine, serum osm -- pt was started on NS 80 ml in the ER and may have received small amount of fluids before our team placed these labs - Nephrology consulted - Suspect this is secondary to long standing HCTZ use + loxapine. Will hold HCTZ and use other agent for BP if needed - Encourage regular dietary intake with some salt, pt is also drinking 8 glasses of free water daily and may be worsening hyponatremia. (2) Episode of syncope: Plan: - Check 2 D echo, orthostatics, hold HCTZ - May continue diltiazem, losartan, carvedilol, metoprolol succinate - Consider cardiology consult - Suspect due to hyponatremia as above (3) Afib: Plan: -Patient is anticoagulated on Eliquis 5 mg BID - Rate control with cardizem and metoprolol succ, will continue (4) HLD (hyperlipidemia): Plan: -Chronic, stable, continue atorvastatin 20 mg (5) Schizophrenia: Plan: -Chronic stable, auditory hallucinations. Normal occurrence for this patient, no history of visual hallucinations, no suicidal or homicidal ideations -Continue loxapine succinate 50 mg every evening -Follows with psychiatry with [facility] routinely DVT PPx: Concepcion, scds Lines: 2 PIV FEN/GI heart healthy diabetic diet CODE: Full code Dispo: From home, likely to remain in the hospital x 1-2 days A total of 76 minutes were spent with greater than 50% of that time face to face with the patient, personally reviewing all current laboratories, imaging studies, past medication reconciliation, outpatient chart review, and discussion with specialists to collaborate care for the patient with attending. Please see attending documentation for corrections and/or additions. History of Present Illness Chief Complaint: Syncope Primary Care Provider: Jamari Guidry MD This is an 79-year-old male with PMHx of schizophrenia, HTN, history of prostate cancer, prediabetes, atrial fibrillation who presents to the hospital after a fall sustained outside while he was walking home from the pharmacy. When he realized what happened, there were about 6 people around him calling EMS. Pt notes that he had a large bowel movement early this morning and felt dizzy after this as well. Admits to not feeling great early in the morning. He reports feeling lightheaded before his fall, denies any chest pain, shortness of breath. This is new today for him, and notes he felt dizzy again when standing to use the bathroom while here in the ER. He has been taking HCTZ 25 mg daily and loxapine 15 mg daily. Pt states his PO intake was normal recently, he has been trying to drink about 8 glasses of water daily. Pt lives alone. He has meals on wheels at home. Pt reports has a sister in [place], but otherwise has neighbors who help him. As far as schizophrenia symptoms, the patient has auditory hallucinations as part of daily life, nonthreatening, slightly irritating at times but he has dealt with this since the early . Allergies Allergy/AdvReac Type Severity Reaction Status Date / Time No Known Allergies Allergy Unknown Verified 08/09/22 14:27 Home Medications Medication Instructions Recorded Confirmed Type apixaban 5 mg tablet (Eliquis) 5 mg PO BID 06/01/21 01/07/24 History cholecalciferol (vitamin D3) 25 25 mcg PO QAM 06/01/21 01/07/24 History mcg (1,000 unit) capsule losartan 100 mg tablet 100 mg PO QAM 06/01/21 01/07/24 History atorvastatin 20 mg tablet 20 mg PO QAM 07/15/21 01/07/24 History echinacea 400 mg capsule 400 mg PO UD PRN boost immune 07/15/21 01/07/24 History system loxapine succinate 5 mg capsule 15 mg PO QPM 07/15/21 01/07/24 History hydrochlorothiazide 25 mg tablet 25 mg PO QAM 04/07/22 01/07/24 History docusate sodium 100 mg capsule 100 mg PO BID 07/23/22 01/07/24 History metformin 500 mg tablet,extended 500 mg PO DAILY 07/23/22 01/07/24 History release 24 hr multivitamin with minerals 1 tab PO DAILY 07/23/22 01/07/24 History diltiazem HCl 120 mg 120 mg PO QAM 01/07/24 01/07/24 History capsule,extended release 24 hr metoprolol succinate 25 mg 25 mg PO QPM 01/07/24 01/07/24 History tablet,extended release 24 hr Past Med/Surg History Medical History (Updated 01/07/24 @ 20:06 by Holly Nuñez PA-C) Schizophrenia Dx , controlled with meds History of prostate cancer Dx 06/2021; s/p prostatectomy Pre-diabetes On Metformin, Hgb A1C 09/2021 was 5.2 Afib On Eliquis daily--Follows with Dr. Norwood High cholesterol High blood pressure Surgical History History of left cataract extraction History of right cataract extraction History of radical prostatectomy (~10/11/21) History of colonoscopy H/O prostate biopsy History of tonsillectomy and adenoidectomy Family History Father Esophageal cancer Other No family history of adverse response to anesthesia Social History Smoking Status: Never smoker Second Hand Exposure: No; Do You Dip or Chew Tobacco: No; Hx Alcohol Use: Yes Alcohol type: wine Hx Substance Use: No Preferred Language: Khmer Communication Ability: Effective Visual Impairment: No Limitations Hearing Ability: Normal 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 Required: No Beliefs That Will Affect Care: None marital status: Single Current Living Situation: Alone current occupational status: other 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 Feels Safe at Home: Yes Diet: regular caffeine: Yes Dental Care, Regularly: Yes Physical Activity Frequency: 3-4 Times per Week Assistive Devices: Glasses Review of Systems Review of Systems: Constitutional: No fever, sweats or chills Eyes: No diplopia, no worsening or blurred vision ENT: normal hearing, no trouble swallowing Respiratory: No cough, sputum, dyspnea at rest or on exertion Cardiovascular: No chest pain, tightness or palpitations Abdomen: No pain, nausea, vomiting, diarrhea, + constipation historically, last bowel movement today Musculoskeletal: No joint pain, calf pain, swelling Neurologic: No weakness, numbness/tingling, or balance problems Psychiatric: No anxiety or depression Skin: No rash or itch Physical Exam Physical Exam: General: awake, alert, no apparent distress, elderly white male Head: Normocephalic, atraumatic ENT: PERRL, EOMI, no pharyngeal exudate, mucous membranes moist Chest: Clear to auscultation, on room air, no adventitious breath sounds Cardiac: Sinus tachycardia, no murmur, no JVD, normal peripheral pulses, good capillary refill Abdominal: NABS x 4 quadrants, soft, nondistended, nontender to palpation, no rebound or guarding Extremities: Normal inspection, no peripheral edema or erythema, calfs nontender to palpation Psych: Normal mood and affect, + auditory hallucinations daily , no visual hallucination Neuro: AAO x 3, strength intact bilaterally and rated 5/5, no motor deficits, speech is clear, no peripheral sensory deficits Results & Data Results & Data Vital Signs (Past 12 Hours) Vital Signs Temp Pulse Resp BP Pulse Ox O2 Del Method 01/07/24 18:00 95 H 24 133/86 94 01/07/24 17:30 94 H 19 130/73 95 01/07/24 17:00 86 22 140/83 94 01/07/24 16:30 91 H 17 135/86 01/07/24 15:55 96 H 01/07/24 15:46 96 H 21 118/74 94 01/07/24 15:41 36.8 C 96 H 20 119/70 96 Room Air Laboratory Results 01/07/24 01/07/24 01/07/24 17:38 16:52 15:57 WBC 11.84 H RBC 4.06 L Hgb 14.1 POC Hgb 12.2 L Hct 38.0 L POC Hct 36 L MCV 93.6 MCH 34.7 H MCHC 37.1 H RDW Std Deviation 43.6 RDW Coeff of Roby 12.7 Plt Count 276 MPV 8.4 L Immature Gran % (Auto) 0.4 Neut % (Auto) 86.4 Lymph % (Auto) 4.9 Sawyer % (Auto) 8.1 Eos % (Auto) 0.0 Baso % (Auto) 0.2 Neut # (Auto) 10.23 H Lymph # (Auto) 0.58 L Sawyer # (Auto) 0.96 H Eos # (Auto) 0.00 Baso # (Auto) 0.02 Immature Gran # (Auto) 0.05 POC Sodium 126 L Sodium 125 L POC Potassium 3.8 Potassium 3.7 POC Chloride 91 L Chloride 92 L Carbon Dioxide 25 POC Total CO2 27 Anion Gap 8 POC Anion Gap 14.0 L POC BUN 8 BUN 9 Creatinine 0.94 POC Creatinine 0.9 Est Cr Clr Drug Dosing 74.9 Est GFR ( Amer) 88.4 Est GFR (Non-Af Amer) 76.3 BUN/Creatinine Ratio 9.6 L Glucose 147 H POC Glucose (other) 119 H Calcium 8.8 POC Ioniz Calcium Keith 1.06 L Ethyl Alcohol mg/dL < 10.0 Diagnostic Findings Cervical Spine CT 01/07/24 16:14 CT OF THE CERVICAL SPINE WITHOUT CONTRAST CLINICAL HISTORY: dizziness fall on eliquis COMPARISON STUDY: No previous studies for comparison. TECHNIQUE: Helical axial images of the cervical spine were obtained without IV contrast. Sagittal and coronal reconstructions were viewed. Automated exposure control was utilized for the study. A dose lowering technique was utilized a dhering to the principles of ALARA. FINDINGS: There is slight reversal of the cervical lordosis. Vertebral body heights are maintained. No acute cervical spine fracture or subluxation is present. There is no prevertebral edema. Facet joints are intact. There is moderate multilevel disc space narrowing, endplate osteophytosis and facet arthrosis within the cervical spine. IMPRESSION: No acute cervical spine fracture or subluxation. ACT 112: Negative or not required by law. Electronically signed by: Matt Martinez M.D. 01/07/2024 5:45 PM Head CTA 01/07/24 16:14 CTA ANGIOGRAPHY OF THE HEAD CLINICAL HISTORY: dizziness fall on eliquis COMPARISON STUDY: No previous studies for comparison. TECHNIQUE: Helical axial images of the head were obtained following uneventful intravenous administration of 119 cc of Optiray. Sagittal and coronal reconstructions were viewed as well as maximal intensity projections on an independent 3-D workstation. Automated exposure control was utilized for the study. A dose lowering technique was utilized adhering to the principles of ALARA. FINDINGS: Please note that the head CT will be reported separately. No acute intracranial hemorrhage was evident on that exam. Mild ventricular dilatation is due to central atrophy. Basal cisterns are patent. There are no extra axial collections. The bilateral M1, M2, A1 and A2 segments are patent. No vessel occlusion is identified. There is no intracranial aneurysm. Posterior circulation is intact. Left vertebral artery is dominant. There is mild plaque within the intracranial portion of the left vertebral artery without stenosis. Basilar artery and posterior cerebral arteries are patent. IMPRESSION: No central vessel occlusion. No intracranial aneurysm. ACT 112: Negative or not required by law. Electronically signed by: Matt Martinez M.D. 01/07/2024 5:59 PM Neck CTA 01/07/24 16:14 CT ANGIOGRAPHY OF THE NECK WITH CONTRAST CLINICAL HISTORY: dizziness fall on eliquis COMPARISON STUDY: No previous studies for comparison. Technique: CT angiography of the carotid and vertebral arteries was obtained using Optiray and 3D reconstruction on an independent workstation. NASCET criteria was utilized. Automated exposure control was utilized for the study. A dose lowering technique was utilized adhering to the principles of ALARA. Findings: Visualized portions of the lung apices are unremarkable. There is no cervical spine fracture. No cervical lymphadenopathy is present. The bilateral common carotid, cervical internal carotid and vertebral arteries are patent. This exam is mildly compromised by motion artifact. No stenosis or dissection within these vessels is present. There is moderate atherosclerotic plaque of the aortic arch. The left vertebral artery is dominant. CTA of the head will be reported separately. IMPRESSION: No stenosis or dissection within the bilateral common carotid, cervical internal carotid or vertebral arteries. ACT 112: Negative or not required by law. Electronically signed by: Matt Martinez M.D. 01/07/2024 5:[address] 01/07/24 16:15 CT OF THE HEAD WITHOUT CONTRAST CLINICAL HISTORY: dizziness fall on eliquis COMPARISON STUDY: No previous studies for comparison. CT DOSE: 1485.19 mGy.cm TECHNIQUE: Helical axial images of the head were obtained without IV contrast. Automated exposure control was utilized for the study. A dose lowering technique was utilized adhering to the principles of ALARA. FINDINGS: No acute intracranial hemorrhage, midline shift or mass effect is present. Mild ventricular dilatation is due to central atrophy. The basal cisterns are patent. No extra-axial collections are present. There are no findings to suggest acute dural sinus thrombosis or acute territorial infarct. No significant calvarial abnormalities are present. Visualized portions of the sinuses and mastoid air cells are clear. IMPRESSION: 1. No acute intracranial findings. 2. No calvarial fracture. ACT 112: Negative or not required by law. Electronically signed by: Matt Martinez M.D. 01/07/2024 5:42 PM ECG Additional Comments: Reviewed personally showing sinus tach, few PACs Code Status & VTE Plan Code Status Full code - discussed with pt at bedside VTE Prophylaxis Plan VTE Prophylaxis will be ordered: Yes Supervising Physician Co-Signing Physician Notes I have seen and discussed the case with the collaborating advanced practitioner. I agree with the above H&P. I have reviewed and confirmed the patients medical history, the findings on physical examination, and the patients diagnosis and treatment plan with Joaquin CHAVARRIA and agree with the information documented. In short, Mr. Chavira is an 79-year-old male with PMHx of schizophrenia, HTN, history of prostate cancer, prediabetes, atrial fibrillation who initially presented to ED after a fall but noted to have hyponatremia on evaluation, admission for evaluation of such. States he felt dizzy today upon standing, which he feels precipitated the falls. Denies any other new symptoms or neurologic deficits. States he eats well with meals on wheels. He is trying to drink "8 square ounces fluid." Denies any chest pain, palpitations. He is on HCTZ and loxapine chronically. GENERAL APPEARANCE: AxOx4, generally well-appearing male, very pleasant, no acute distress. HEENT: NC, AT. MMM. EOMI, clear conjunctiva, oropharynx clear. NECK: Supple without lymphadenopathy. No stiffness or restricted ROM. HEART: Normal rate and regular rhythm, normal S1/S1, no m/r/g LUNGS: CTAB, moving air well. No crackles or wheezes are heard. ABDOMEN: Soft, nontender, nondistended with good bowel sounds heard. BACK: No CVAT, no obvious deformity. EXTREMITIES: Without cyanosis, clubbing or edema. NEUROLOGICAL: Grossly nonfocal. Alert and oriented, moving all 4 extremities. CN not formally tested but appear grossly intact.. Skin: Warm and dry without any rash. #Hypoosmolar Hyponatremia Likely multifactorial, on antipsychotic and HCTZ chronically (OP sodium last mildly low at 133 in 07/2023), intentional increase free water intake for "8 ounce" minimum goal Suspect likely SIADH FR 1.5 Hold HCTZ Continue loxapine 2/2 chronic/stable schizophrenia Consult nephrology Stop IVF Trend BMP q4 , serum NA goal no great that 6-8meq change director 24 hours (134 by 1600 01/06) Rest of plan as above I spent a total of 25 minutes coordinating, documenting, and providing care for this patient excluding time spent in the performance of separately billed services. All of the aforementioned completed outside of collaborating with the assigned advanced practitioner for a full treatment plan. I have reviewed the advanced practitioner's documentation, and I agree with, and take responsibility for the plan of care
[2024-01-07 20:20] LABS: BUN Creatinine Ratio 12.7 (10-20); Calcium 8.2 mg/dl (8.6-10.3); Creatinine Clr Calc Pharmacy 99.2 ml/min; Est GFR (African American) 102.7 ml/min; Est GFR (Non-African American) 88.6 ml/min; Potassium 3.6 mmol/L (3.5-5.1)
[2024-01-07] MEDS ORDERED: CARBOHYDRATES FOR HYPOGLYCEMIA PO PRN (20:23)
[2024-01-07] MEDS ORDERED: DEXTROSE 50% 50 ML SYRINGE IV PRN (20:23)
[2024-01-07] MEDS ORDERED: GLUCAGON FOR INJ 1 MG VIAL SQ PRN (20:23)
[2024-01-07] MEDS ORDERED: GLUCOSE 10 TAB/TUBE PO PRN (20:23)
[2024-01-07] MEDS ORDERED: GLUCOSE 40% GEL 15 GM TUBE PO PRN (20:23)
[2024-01-07] MEDS ORDERED: ECHINACEA 400 MG PO PRN (20:23)
[2024-01-07 21:06] LABS: Creatinine Urine Random 106.7 mg/dl
[2024-01-07] MEDS: METOPROLOL SUCC 25MG EXT REL TAB PO SCH (21:07)
[2024-01-07] MEDS: DOCUSATE SODIUM 100 MG CAP PO SCH (21:08)
[2024-01-07] MEDS: APIXABAN 5 MG TABLET PO SCH (21:08)
[2024-01-07] MEDS: INSULIN ASPART PER UNIT CHARGE SC SCH (21:22)
[2024-01-08 01:26] LABS: BUN Creatinine Ratio 13.4 (10-20); Calcium 8.2 mg/dl (8.6-10.3); Creatinine Clr Calc Pharmacy 88.2 ml/min; Est GFR (African American) 96.8 ml/min; Est GFR (Non-African American) 83.5 ml/min; Potassium 3.6 mmol/L (3.5-5.1)
--- OUTSIDE RECORDS SUMMARY | 2024-01-08 05:23 | External Medical Summary | Summary of Care ---
Author Name Unknown Organization [facility] Address [address] [facility] [place] [address] Phone [phone] Care Team Providers Care Hotel General Manager Name Role Phone Brea HUNT MD, Jamari Rico Primary Care Provider [phone] Reason for Visit * Reason Comments Knee Pain left Encounter Details Date Type Department Care Team (Latest Contact Info) Description 12/12/2023 1:30 PM EST Office Visit Orthopaedics [facility] [place] [address] [place] [address] Dago Nicholas PA-C [address] [place] [address] Primary osteoarthritis of left knee* Allergies No known active allergiesdocumented as of this encounter (statuses as of 12/18/2023) Medications Medication Sig Dispensed Refills Start Date End Date Status MULTIVITAMIN/MINERAL FORMULA TABS OR One tab by mouth every 3rd day 30 0 05/10/2001 Active LOXAPINE SUCCINATE 10 MG PO CAPSIndications:15mg in evening Take 15 mg by mouth daily. 0 Active ECHINACEA 400 MG PO CAPS Take by mouth as needed for Other (to boost immune system). 0 Active Cholecalciferol (VITAMIN D3) 25 MCG TABSIndications:in pm Take by mouth. 0 Active Docusate Sodium 100 MG Oral Capsule (Colace) Take 1 Capsule by mouth in the morning and 1 Capsule before bedtime. 0 10/12/2021 Active Eliquis 5 MG Oral Tablet (Apixaban)Indication s:Paroxysmal atrial fibrillation (HCC) TAKE 1 TABLET BY MOUTH TWICE A DAY 180 Tablet 3 12/04/2022 Active Fluocinonide 0.05 % External OintmentIndications: Stasis dermatitis of both legs Apply topically to affected area 2 times a day. Apply to the lower legs 30 g 1 12/06/2022 Active dilTIAZem HCl ER Coated Beads 120 MG Oral Capsule Extended Release 24 Hour (Cardizem CD) Take 1 Capsule by mouth in the morning. 90 Capsule 3 03/08/2023 Active Atorvastatin Calcium 20 MG Oral Tablet (Lipitor)Indications :Dyslipidemia, goal to be determined TAKE 1 TABLET BY MOUTH EVERY DAY IN THE MORNING 90 Tablet 3 04/12/2023 Active Losartan Potassium 100 MG Oral Tablet (Cozaar) TAKE 1 TABLET BY MOUTH EVERY DAY 90 Tablet 3 05/04/2023 Active Metoprolol Succinate ER 25 MG Oral Tablet Extended Release 24 Hour 1 tablet by mouth daily in the evening 90 Tablet 3 07/05/2023 Active metFORMIN HCl ER 500 MG Oral Tablet Extended Release 24 Hour (Glucophage XR)Indications:Impai red fasting glucose TAKE 1 TABLET BY MOUTH EVERY DAY 90 Tablet 3 08/26/2023 Active hydroCHLOROthiazide 25 MG Oral Tablet (Hydrodiuril)Indicat ions:HTN, goal below 140/90 TAKE 1 TABLET BY MOUTH EVERY DAY BY MOUTH 90 Tablet 2 11/19/2023 Active Amantadine HCl 100 MG Oral TabletIndications:Re stless arm,Schizophrenia, chronic condition (HCC),Extrapyramidal and movement disorder Take one tablet by mouth twice daily x 1 week, then increase to one tablet by mouth three times daily 90 Tablet 5 11/30/2023 Active Hospital, Clinic, or Other Facility Administered Medication Ordered Dose Route Frequency Start Date End Date Status lidocaine 1% 1 mL - triamcinolone acetonide 40 mg/mL 1 mL inj 2 mL 2 mL IJ ONCE 12/12/2023 12/12/2023 Ended documented as of this encounter (statuses as of 12/18/2023) Active Problems Problem Noted Date Diagnosed Date Schizophrenia 11/21/2023 Chronic indwelling Elias catheter 11/21/2023 Enlarged prostate 11/21/2023 Erectile dysfunction 11/21/2023 Bladder neck contracture 01/15/2023 Prostate cancer 08/19/2021 PAF (paroxysmal atrial fibrillation) 09/01/2020 Dyslipidemia, goal LDL below 100 02/07/2019 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 SCHIZOPHRENIA NOS-CHR 04/03/2001 HTN, goal below 140/90 04/03/2001 documented as of this encounter (statuses as of 12/18/2023) Resolved Problems Problem Noted Date Diagnosed Date Resolved Date Pre-diabetes 11/21/2023 12/13/2023 Dyslipidemia 10/04/2018 04/02/2019 Prediabetes 12/11/2017 08/10/2022 Overview: Per Prediabetes protocol #1 Retention of urine 11/21/2011 8 Overview: ICD-10 update of inactive term documented as of this encounter (statuses as of 12/18/2023) Immunizations Name Administration Dates Next Due COVID-19 mRNA, LNP-s, No Pre serve, 2-Dose Series ([employer]) 09/19/2021 COVID-19, LNP-s, No Preserve , Gage-sucrose, Ages 12+ (Smart Wire Grid) 02/02/2022 COVID-19, MRNA-LNP, 23-24, P F, 30 MCG/0.3 mL, 12 YRS AND ABOVE, IM ([employer]-Comirnaty) 07/19/2023 Covid-19 Ad26, Single Dose ([employer]J&J) 01/04/2021,01/04/2021 Pneumococcal Conjugate Vacc, 13 Valent (Prevnar) 10/18/2015 Pneumococcal Polysaccharide PPV23 (Pneumovax) 03/17/2009 RSV Vac., Recomb, Adjuvant, PF,0.5 Ml (Arexvy) 09/03/2023 Season Influenza, Quad, PF, Adjuvanted, 65+ Yrs, IM (FLUAD) 07/10/2023 Seasonal Influenza Virus Vac cine, Unspecified Formulation 06/30/2022,07/19/2021,09/04/2018,07/19,07/27/2017,08/24/2016,07/16/2014 ,08/18/2013,08/22/2012,08/31/2011,08/29,08/31/2009,09/03/2008, 6 Seasonal Influenza, PF, 6 M & above, IM , (FluLaval or Fluzone) 09/04/2018,07/27/2017 Seasonal Influenza, Quadriva lent Hd (Fluzone Hd) 06/30/2022 Seasonal Influenza, Quadriva lent Hd, 65+ Yrs 07/19/2021,06/24/2020 Seasonal Influenza, Split, I IV3, With Preserve, Inj 08/24/2016,07/16/2014,08/18/2013,08/22,08/31/2011,09/07/2010,08/31/2009 ,09/03/2008,09/05/2006 Seasonal Influenza, Trivalen t, High Dose, No Preserve, IM 07/01/2019,07/19/2018 TD - Tetanus/Diptheria (ADULT) 03/28/2001 TD, Preservative Free 08/10/2011 TDAP (age 10 and older)(Boostrix) 07/31/2022 Varicella Zoster Vaccine (Adult) 05/19/2010 Zoster Vaccine Recombinant (Shingrix) 08/30/2018 ,06/28/2018 documented as of this encounter Social History Tobacco Use Types Packs/Day Years Used Date Smoking Tobacco: Never Smokeless Tobacco: Never Alcohol Use Standard Drinks/Week Comments Not Currently 0 (1 standard drink = 0.6 oz pur e alcohol) rarely PHQ-2 Answer Date Recorded PHQ Adult Total Score 2 09/20/2021 Sex and Gender Information Value Date Recorded Sex Assigned at Male 02/07/2019 11:47 AM EDT Gender Identity Male 02/07/2019 11:47 AM EDT Sexual Orientation Straight 02/07/2019 11 :47 AM EDT Job Start Date Occupation Industry Not on file Not on file Not on file documented as of this encounter Progress Notes * Dago Nicholas PA-C - 12/12/2023 1:36 PM ESTAssociated Order(s): LG Joint Inj/Arthro: L knee Post-Procedure Diagnose(s): Primary osteoarthritis of left knee Well documented left knee osteoarthritis. Utilize an intra-articular corticosteroid injection in the past with fair results. We decided to attempt utilizing a 1 time SWEENEY injection with Durolane. Patient was not impressed by this either. We discussed proceeding with potentially a 3 shot SWEENEY injection series verses revisiting a corticosteroid injection left knee. Patient would like to trial and revisit a corticosteroid injection. Worse no affect on his sugars. He takes metformin. Last A1c 5.4. Beginning to have pain with weight-bearing activity and intermittently rest. Denies any new injury or fall. Denies any calf pain. X-rays on file. Complete review systems negative Exam unchanged X-rays reveal advanced osteoarthritis left knee Impression: Left knee osteoarthritis Plan: Today 's findings were discussed with the patient. They were educated regarding their diagnosis. Multiple treatment options discussed and agreed upon, including revisiting a corticosteroid injection for left knee. Updated consent time-out procedure performed and completed today. Will follow up in 3 months for clinical reassessment. Acceptable results and we would revisit steroid injections.Less than ideal we would discuss the opportunity for a 3 shot SWEENEY injection series initiation. The patient is in agreement. The patient has no other questions or concerns. Pleased with today 's care. Call sooner if needed. Patient instructed to call or return to clinic for fever or warmth and redness at injection site for potential infection. Patient also advised as to potential for steroid flare reaction including increased pain and redness at injection site which should be treated with ice and resolve within 24 hours. LG Joint Inj/Arthro: L knee on 12/12/2023 1:40 PM Indications: pain Details: 22 G needle, anterolateral approach Medications: (Triamcinolone lidocaine) Outcome: tolerated well, no immediate complications Procedure, treatment alternatives, risks and benefits explained, specific risks discussed. Consent was given by the patient. Immediately prior to procedure a time out was called to verify the correctpatient, procedure, equipment, field support engineer and site/side marked as required. Patient was prepped and draped in the usual sterile fashion. This chart was completed in part utilizing [employer] Voice Recognition Software. Grammatical errors, random word insertions, prounoun errors, and incomplete sentences are an occasional consequence of this system due to software limitations, ambient noise, and hardware issues. Any formal questions or concerns about the content, text, or information contained within the body of this dictation should be directly addressed to the provider for clarificatio documented in this encounter Nursing Notes * Erin Arana MED ASSIST - 12/12/2023 1:29 PM EST Here for left knee pain, repeat injection. documented in this encounter Plan of Treatment Upcoming Encounters Date Type Department Care Team (Late st Contact Info) Description 02/06/2024 12:20 PM EDT Office Visit Family Practice [facility] [address] [facility] [place] [address] Jamari Guidry III, MD [address] [facility] [place] [address] 03/13/2024 1:45 PM EDT Office Visit Orthopaedics [facility] [place] [address] [place] [address] Dago Nicholas PA-C [address] [place] [phone] Health Maintenance Due Date Last Done Comments Hepatitis C Screening 01/04/1963 Depression Screening 09/20/2022 09/20/2021 B-12 07/31/2024 07/31/2023, 01/27, 07/15/2020, Additional history exists GFR 07/31/2024 07/31/2023, 12/28, 02/09/2022, Additional history exists Albumin/Creatinine Ratio 08/06/2026 08/06/2023, 07/01 DTaP,Tdap,and Td Vaccines (2 - Td or Tdap) 07/31/2032 07/31/2022, 08/10/2011, 03/28/2001 Pneumococcal Vaccine: 65+ Years Completed 10/18/2015, 03/17/2009 Zoster Vaccines Completed 08/30/2018, 05/31, 05/19/2010 COLONOSCOPY-EVERY 3 YRS AGES 18-100 Discontinued 12/12/2022, 12/12/2022, 09/16/2018, Additional history exists Influenza Vaccine (FLU shot) Completed 07/10/2023, 06/30/2022, 06/30/2022, Additional history exists COVID-19 Vaccine Completed 07/19/2023, 04/2022, 09/19/2021, Additional history exists GARDASIL-HPV IMMUNIZATION SERIES Aged Out No longer eligible based on patient's age to complete this topic Hepatitis B Aged Out No longer eligi ble based on patient's age to complete this topic MENINGOCOCCAL (MENACTRA/MENVEO) Aged Out No longer eligible based on patient's age to complete this topic documented as of this encounter Medical Devices Not on filedocumented as of this encounter Procedures Procedure Name Priority Date/Time Associated Diagnosis Comments MS ARTHROCENTESIS ASPIR&/INJ MAJOR JT/BURSA W/O US Routine 12/12/2023 1:40 PM EST Primary osteoarthritis of left knee documented in this encounter Results * MS ARTHROCENTESIS ASPIR&/INJ MAJOR JT/BURSA W/O US (12/12/2023 1:40 PM EST) Narrative Dago Nicholas PA-C - 12/12/2023 1:40 PM EST Dago Nicholas PA-C 12/12/2023 1:43 PM LG Joint Inj/Arthro: L knee on 12/12/2023 1:40 PM Indications: pain Details: 22 G needle, anterolateral approach Medications: (Triamcinolone lidocaine) Outcome: tolerated well, no immediate complications Procedure, treatment alternatives, risks and benefits explained, specific risks discussed. Consent was given by the patient. Immediately prior to procedure a time out was called to verify the correct patient, procedure, equipment, field support engineer and site/side marked as required. Patient was prepped and draped in the usual sterile fashion. Dago Nicholas PA-C PROCDOC FORM documented in this encounter Visit Diagnoses Diagnosis Primary osteoarthritis of left knee- Primary Primary localized osteoarthrosis, lower leg documented in this encounter Administered Medications Inactive Administered Medications - up to 3 most recent administrations Medication Order MAR Action Action Date Dose Rate Site lidocaine 1% 1 mL - triamcinolone acetonide 40 mg/mL 1 mL inj 2 mL 2 mL, Injection, ONCE, On Sun12/12/23 at 1415, For 1 dose, Lidocaine 1% 1mL Triamcinolone Acetonide 40 mg/mL 1 mL (Final concentration = 20 mg/mL) REFRIGERATE and SHAKE WELL Given 12/12/2023 12:38 PM EST 2 mL Knee Left documented in this encounter Care Teams Hotel General Manager Relationship Specialty Start Date End Date Jamari Guidry III, MD [address] [facility] [place] [address] PCP - General 03/11/01 documented as of this encounter
--- OUTSIDE RECORDS SUMMARY | 2024-01-08 05:23 | External Medical Summary | Summary of Care ---
Author Name Unknown Organization [facility] Address [address] [place] [facility] [place] [address] Phone [phone] Care Team Providers Care Mill Turner Name Role Phone Brea HUNT MD, Jamari Rico Primary Care Provider [phone] Reason for Visit * Reason Onset Date Comments Advice 12/26/2023 Encounter Details Date Type Department Care Team (Late st Contact Info) Description 12/26/2023 Telephone Cardiology, [facility] [address] [place] [address] Remi Norwood, [address] [place] [address] Advice Allergies No known active allergiesdocumented as of this encounter (statuses as of 12/26/2023) Medications Medication Sig Dispensed Refills Start Date [...] times daily 90 Tablet 5 11/30/2023 Active documented as of this encounter (statuses as of 12/26/2023) Active Problems Problem Noted Date Diagnosed Date [...] as of this encounter (statuses as of 12/26/2023) Resolved Problems Problem Noted Date Diagnosed Date Resolved Date Pre-diabetes 11/21/2023 12/13/2023 Dyslipidemia 10/04/2018 04/02/2019 Prediabetes 12/11/2017 08/10/2022 Overview: Per Prediabetes protocol #1 Retention of urine 11/21/2011 8 Overview: ICD-10 update of inactive term documented as of this encounter (statuses as of 12/26/2023) Immunizations Name Administration Dates Next Due COVID-19 mRNA, LNP-s, No Pre serve, 2-Dose Series ([employer] 09/19/2021 COVID-19, LNP-s, No Preserve , Gage-sucrose, Ages 12+ ([employer] 02/02/2022 COVID-19, MRNA-LNP, 23-24, P F, 30 MCG/0.3 mL, 12 YRS AND ABOVE, IM ([employer]-ComirnatStreyner) 07/19/2023 Covid-19 Ad26, Single Dose ([employer]/J&[employer]) 01/04/2021,01/04/2021 Pneumococcal Conjugate Vacc, 13 Valent (Prevnar) [...] t, High Dose, No Preserve, IM 07/01/2019,07/19/2018 TD, Preservative Free 08/10/2011 TDAP (age 10 [...] on file documented as of this encounter Miscellaneous Notes * Telephone Encounter - Philip Darby LPN - 12/26/2023 1:23 PM EST Patient due for a tooth extraction. Per Dr. Norwood patient to hold Eliquis day prior to procedure, day of procedure and then resume next day in the evening. documented in this encounter Plan of Treatment Upcoming Encounters Date Type Department Care Team (Late st Contact Info) Description 02/06/2024 12:20 PM EDT Office Visit Family [facility] [address] [place] [address] Jamari Guidry III, MD [address] [place] [address] 03/13/2024 1:45 PM EDT Office Visit Orthopaedics [facility] [address] [place] [address] Dago Nicholas PA-C [address] [place] [address] Health Maintenance Due Date Last Done Comments [...] Not on filedocumented as of this encounter Care Teams Mill Turner Relationship Specialty Start Date End Date Jamari Guidry III, MD [address] [place] [address] PCP - General 03/11/01 documented as of this encounter
--- OUTSIDE RECORDS SUMMARY | 2024-01-08 05:23 | External Medical Summary | Summary of Care ---
Author Name Unknown Organization [facility] Address [address] [facility] [place] [address] Phone [phone] Care Team Providers Care Shredder Operator Name Role Phone Brea HUNT MD, Jamari Rico Primary Care Provider [phone] Reason for Visit * Reason Comments Knee Pain left Encounter Details Date Type Department Care Team (Latest Contact Info) Description 12/12/2023 1:30 PM EST Office Visit Orthopaedics [facility] [address] [place] [address] Dago Nicholas PA-C [address] [place] [address] Primary osteoarthritis of left knee* Allergies No [...] mRNA, LNP-s, No Pre serve, 2-Dose Series ([employer] 1) 09/19/2021 COVID-19, LNP-s, No Preserve , Gage-sucrose, Ages 12+ ([employer] 1) 02/02/2022 COVID-19, MRNA-LNP, 23-24, P F, 30 MCG/0.3 mL, 12 YRS AND ABOVE, IM ([employer]-Comirnaty) 07/19/2023 Covid-19 Ad26, Single Dose ([employer]/J&J) 01/04/2021,01/04/2021 Pneumococcal Conjugate Vacc, 13 Valent (Prevnar) [...] called to verify the correctpatient, procedure, equipment, legal support analyst and site/side marked as required. Patient was prepped and draped in the usual sterile fashion. This chart was completed in part utilizing [employer] Speech Voice Recognition Software. Grammatical errors, random [...] 12:20 PM EDT Office Visit Family Practice [facility] [address] [facility] [place] [address] Jamari Guidry III, MD [address] [facility] [place] [address] 03/13/2024 1:45 PM EDT Office Visit Orthopaedics [facility] [address] [place] [address] Dago Nicholas PA-C [address] [place] [address] Health Maintenance Due Date Last Done Comments [...] Procedure Name Priority Date/Time Associated Diagnosis Comments [place] ARTHROCENTESIS ASPIR&/INJ MAJOR JT/BURSA W/O US Routine 12/12/2023 1:40 PM EST Primary osteoarthritis of left knee documented in this encounter Results * VA ARTHROCENTESIS ASPIR&/INJ MAJOR JT/BURSA W/O US (12/12/2023 [...] to verify the correct patient, procedure, equipment, legal support analyst and site/side marked as required. Patient was [...] Left documented in this encounter Care Teams Shredder Operator Relationship Specialty Start Date End Date Jamari Guidry III, MD [address] [place] [address] PCP - General 03/11/01 documented as of this encounter
--- OUTSIDE RECORDS SUMMARY | 2024-01-08 05:23 | External Medical Summary | Continuity of Care Document ---
Author Name Unknown Organization [facility] [address] [place] [address] [place]MELO SOW [id number] Care Team Providers Care Hot Mix Operator Name Role Phone Augusto Simeon Primary Care Physician [phone] [id number] Date(s): 12/20/23 - 12/20/23 [facility] [address] [facility] [address], [address], [address] [place] [address] [phone] Encounter Diagnosis Bladder neck contracture(Discharge Diagnosis) - 12/20/23 Discharge Disposition: Home or Self Care Attending Physician: MD Weathers Susan Referring Physician: MD Simeon Christopher T Allergies, Adverse Reactions, Alerts No Known Allergies Assessment and Plan Extracted from: Title:Urology Office Visit Note Author:MD Weathers Susan Date:12/20/23 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 Patient is asymptomatic. FU in 1 year. Medications atorvastatin 20 mg oral tablet Start: 01/15/23 11:15:00 EDT, 1 tab, PO, Daily Start Date: 01/15/23 Status: Ordered DilTIAZem (Eqv-Cardizem CD) 120 mg/24 hours oral capsule, extended release Start: 05/17/23 13:15:00 EDT Start Date: 05/17/23 Status: Ordered Eliquis 5 mg oral tablet Start: 01/15/23 11:16:00 EDT, 1 tab, PO, bid Start Date: 01/15/23 Status: Ordered hydroCHLOROthiazide 25 mg oral tablet Start: 01/15/23 11:15:00 EDT, 1 tab, PO, Daily Start Date: 01/15/23 Status: Ordered losartan 100 mg oral tablet Start: 01/15/23 11:14:00 EDT, 1 tab, PO, Daily Start Date: 01/15/23 Status: Ordered loxapine 5 mg oral capsule Start: 01/15/23 11:14:00 EDT, 3 cap, PO, qhs Start Date: 01/15/23 Status: Ordered MetFORMIN (Eqv-Glucophage XR) 500 mg oral tablet, extended release Start: 01/15/23 11:15:00 EDT, 1 tab, PO, Daily Start Date: 01/15/23 Status: Ordered metoprolol succinate (ER) Start: 12/20/23 11:54:00 EST, 25 mg =, PO, Daily Start Date: 12/20/23 Status: Ordered multivitamin Start: 01/15/23 11:16:00 EDT, 1 tab, PO, Daily Start Date: 01/15/23 Status: Ordered Vitamin D3 1000 intl units (25 mcg) oral tablet Start: 01/15/23 11:16:00 EDT, 1 tab, PO, Daily Start Date: 01/15/23 Status: Ordered Mental Status 12/20/23 Barriers to Learning one year None evide nt Mandatory Health Literacy Documentation Yes Health Literacy Communication Barriers N ever Primary Language Gabonese Problem List Condition Confirmation Course Effective Dates Status Health St atus Informant Erectile dysfunction Confirmed Active Prostate cancer Confirmed Active Frequent UTI Confirmed Active Diagnosis Diagnosis Type Effective Dates Health Status Clinical Service Informant Bladder neck contracture Discharge Diagnosis 12/20/23 Non-Specified Procedures Procedure Date Related Diagnosis Body Site Status Prostatectomy 09/2021 Completed Vital Signs Most recent to oldest [Reference Range]: 1 Height 187.6 cm (12/20/23 11:53 AM) Patient Weight 90.7 kg (12/20/23 11:53 AM) Body Mass Index 25.77 kg/m2 (12/20/23 11:53 AM) Temperature [36.5-37.9 DegC] 36.6 DegC (12/20/23 11:53 AM) Heart Rate 93 bpm (12/20/23 11:53 AM) Respiratory Rate 18 br/min (12/20/23 11:53 AM) Blood Pressure 150/87mmHg (12/20/23 11:53 AM) Cuff Pulse Pressure 63 mmHg (12/20/23 11:53 AM) BP Location # 1 Right Arm (12/20/23 11:53 AM) Social History Social History Type Response Smoking Status Never smoked cigaret [place]lando Sex Male Urology Outpatient Note * MD Sarahy, Mehnaz: PERFORM Event Display: Urology Outpt Note Authored Date: [id number] History of Present Illness Allan Chavira is a 78 year old male with a past medical history of a-fib on metoprolol and Eliquis, hypertension, hyperlipidemia, prediabetes, history of schizophrenia in remission, history of prostatecancer who underwent radical prostatectomy in September 2021 at [facility]. Margins were negative with no seminal vesicle invasion and no lymph node involvement. The patient did not require adjuvant radiation or chemotherapy. He had a PSA done in March 2022 which was less than 0.008. His postoperative course has been complicated by a vesicourethral anastomotic stenosis requiring dilationwhich the patient has failed multiple times He was last dilated in November of 2022. His bladder neck was evaluated with cystoscopyin December and it appeared to be 16 Nepali. Today he follows up and believes he is urinating well with a reasonable stream and empties completely. Unable to perform flow/PVR on command but was amenable to cystoscopy. He was previously presented options includingTUIBNC w/ mitomycin C vs endoscopic YV urethroplasty. Physical Exam Vitals & Measurements T:36.6C HR:93(Monitored) RR:18 BP:150/87 WT:90.7kg WT:90.700kg(Dosing) Constitutional: No obvious distress Eyes: EOMI Ears/Nose/Mouth/Throat: No obvious drainage per ears or nose Respiratory: No audible wheezing/stridor; respirations do not appear labored Gastrointestinal: Abdomen not distended Musculoskeletal: Normal ROM of UEs Skin: No obvious rashes/open sores Neurologic: CN 2-12 grossly intact Psychiatric: Answered questions appropriately w/normal affect Hematologic/Lymphatic/Immunologic: No obvious bruises or sites of spontaneous bleeding Cystoscopy: The risks, benefits and alternatives were discussed with the patient. Informed consent was obtained. One tab of 500mg ciprofloxacin was given as sanju-procedural antibiotics. The patient was prepped and draped in the usual sterile fashion. 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 Patient is asymptomatic. FU in 1 year. Problem List/Past Medical History Ongoing Erectile dysfunction Frequent UTI Prostate cancer Procedure/Surgical History Prostatectomy (09/2021) Medications apixaban(Eliquis 5 mg oral tablet), 5 mg= 1 tab, PO, bid atorvastatin(atorvastatin 20 mg oral tablet), 20 mg= 1 tab, PO, Daily cholecalciferol(Vitamin D3 1000 intl units (25 mcg) oral tablet), 25 mcg= 1 tab, PO, Daily dilTIAZem(DilTIAZem (Eqv-Cardizem CD) 120 mg/24 hours oral capsule, extended release) hydroCHLOROthiazide(hydroCHLOROthiazide 25 mg oral tablet), 25 mg= 1 tab, PO, Daily losartan(losartan 100 mg oral tablet), 100 mg= 1 tab, PO, Daily loxapine(loxapine 5 mg oral capsule), 15 mg= 3 cap, PO, qhs metFORMIN(MetFORMIN (Eqv-Glucophage XR) 500 mg oral tablet, extended release), 500 mg= 1 tab, PO, Daily metoprolol(metoprolol succinate (ER)), 25 mg, PO, Daily multivitamin, 1 tab, PO, Daily Allergies NKA No Known Medication Allergies Social History Smoking Status Never smoked cigarettes Recommendations Health Maintenance Pending(in the next year) OverDue Adult Influenza Vaccine due04/27/23and every 1year Due Adult COVID-19 Vaccination due12/20/23Unknown Frequency Adult Social Determinants of Health Screening due12/20/23Unknown Frequency Adult Tdap/Td Vaccine due12/20/23Unknown Frequency Hepatitis C Screening due12/20/23One-time only Lipid Screening due12/20/23Unknown Frequency Medicare Annual Wellness Visit due12/20/23and every 1year Pneumococcal Vaccine Older Adults due12/20/23One-time only Shingles Vaccine due12/20/23One-time only Satisfied(in the past 1 year) Satisfied Body Mass Index on12/20/23.Satisfied by AUGUSTO Gonzales, Emani Electronic Signature on File Electronically Reviewed/Signed by: Mehnaz Weathers MD Author Signature Dt/Tm:12/20/2023 01:16 PM Division of Urology Patient Care team information Care Team Personnel Name: MD Blanco, Augusto Parmar Position: Referring DIRECT Member Role: Primary Care Provider Address: Address: [address] [place] [address] [address] [place] [address] Care Team Related Persons Name: VETO TEE Address: [place] Address: home [address] [place], [place] [id number]
--- OUTSIDE RECORDS SUMMARY | 2024-01-08 05:24 | External Medical Summary | Summary of Care ---
Author Name Unknown Organization [facility] Address [address] [facility] [place] [address] Phone [phone] Care Team Providers Care Cyber Legal Advisor Name Role Phone Brea HUNT MD, Jamari Rico Primary Care Provider [phone] Reason for Visit * Reason Onset Date Comments Medication Pre-auth 11/27/2023 BENZTROPINE Encounter Details Date Type Department Care Team (Late st Contact Info) Description 11/27/2023 Telephone Family Practice [facility] [address] [place] [address] Joanna Robles PA-C [address] [place] [address] Medication Pre-auth (BENZTROPINE) Allergies No known active allergiesdocumented as of this encounter (statuses as of 12/11/2023) Medications Medication Sig Dispensed Refills Start Date End Date Status MULTIVITAMIN/BIOMEDICAL EQUIPMENT SPECIALIST AL FORMULA TABS OR One tab by mouth every 3rd day 30 0 05/10/2001 Active LOXAPINE SUCCINATE 10 MG PO CAPSIndications:15 mg in evening Take 15 mg by mouth [...] 10/12/2021 Active Eliquis 5 MG Oral Tablet (Apixaban)Indicati ons:Paroxysmal atrial fibrillation (HCC) TAKE 1 TABLET BY MOUTH TWICE A DAY 180 Tablet 3 12/04/2022 Active Fluocinonide 0.05 % External OintmentIndication s:Stasis dermatitis of both legs Apply topically to affected area 2 times a day. Apply to the lower legs 30 g 1 12/06/2022 Active dilTIAZem HCl ER Coated Beads 120 MG Oral Capsule Extended Release 24 Hour (Cardizem CD) Take 1 Capsule by mouth in the morning. 90 Capsule 3 03/08/2023 Active Atorvastatin Calcium 20 MG Oral Tablet (Lipitor)Indicatio ns:Dyslipidemia, goal to be determined TAKE 1 TABLET [...] Oral Tablet Extended Release 24 Hour (Glucophage XR)Indications:Imp aired fasting glucose TAKE 1 TABLET BY MOUTH EVERY DAY 90 Tablet 3 08/26/2023 Active hydroCHLOROthiazid e 25 MG Oral Tablet (Hydrodiuril)Indic ations:HTN, goal below 140/90 TAKE 1 TABLET BY MOUTH EVERY DAY BY MOUTH 90 Tablet 2 11/19/2023 Active Amantadine HCl 100 MG Oral TabletIndications: Restless arm,Schizophrenia, chronic condition (HCC),Extrapyramid al and movement disorder Take one tablet by mouth twice daily x 1 week, then increase to one tablet by mouth three times daily 90 Tablet 5 11/30/2023 Active Benztropine Mesylate 0.5 MG Oral Tablet (Cogentin)Indicati ons:Restless arm,Schizophrenia, chronic condition (HCC),Extrapyramid al and movement disorder Take 1 Tablet by mouth in the morning and 1 Tablet before bedtime. For the first week, take one pill at bedtime. If tolerating OK, then increase to the twice daily dosing.. 60 Tablet 1 11/21/2023 4 Discontinue d(Formulary /Cost) documented as of this encounter (statuses as of 12/11/2023) Active Problems Problem Noted Date Diagnosed Date Pre-diabetes 11/21/2023 Schizophrenia 11/21/2023 Chronic indwelling Elias catheter 11/21/2023 [...] as of this encounter (statuses as of 12/11/2023) Resolved Problems Problem Noted Date Diagnosed Date Resolved Date Dyslipidemia 10/04/2018 04/02/2019 Prediabetes 12/11/2017 08/10/2022 Overview: Per Prediabetes protocol #1 Retention of urine 11/21/2011 8 Overview: ICD-10 update of inactive term documented as of this encounter (statuses as of 12/11/2023) Immunizations Name Administration Dates Next Due COVID-19 mRNA, LNP-s, No Pre serve, 2-Dose Series ([employer] [facility]) 09/19/2021 COVID-19, LNP-s, No Preserve , Gage-sucrose, Ages 12+ (Pfizer) 02/02/2022 COVID-19, MRNA-LNP, 23-24, P F, 30 MCG/0.3 mL, 12 YRS AND ABOVE, IM (CrossReader-Comirnaty) 07/19/2023 Covid-19 Ad26, Single Dose (Voz.io/J&J) 01/04/2021,01/04/2021 Pneumococcal Conjugate Vacc, 13 Valent (Prevnar) [...] encounter Miscellaneous Notes * Telephone Encounter - Joanna Robles PA-C - 12/11/2023 1:10 PM EST His other option is to see neurology or talk to his psychiatrist to see about other medication options. * Telephone Encounter - Althea Kidd LPN - 12/11/2023 12:29 PM EST Patient is calling. He doesn't want to mess with his urinary system. Last time he did it was very painful to be catheterized. The tremor is mild. He will live with it. He is scheduled to see a urologist next week in [facility] at [address] Mehnaz Tubbs. * Telephone Encounter - Zayda Nice LPN - 12/11/2023 12:14 PM EST Left message for pt to call back. * Telephone Encounter - Kishan Gomez DO - 12/05/2023 4:29 PM EST No, this is the forced choice of his insurance. If he fails this they may allow his prior choice. * Telephone Encounter - Viviana Alvarado LPN - 12/05/2023 4:22 PM EST Patient calling in stating that there is side effects of Decreased urination and constipation and he has issues with these 2 problems already and is not eager to take the medication in the first place. Patient is asking if there is a different medication that he could be prescribed instead of the Amantadine. Please advise * Telephone Encounter - Zayda Nice LPN - 12/05/2023 3:34 PM EST Left message for pt to call back. * Telephone Encounter - Renetta Hernandez OSA - 12/04/2023 5:41 PM EST Pt read the side effects of the medication and has questions - please advise [phone] * Addendum Note - Linda Jett RPh - 11/30/2023 11:09 AM ESTAddended by: LINDA JTET on: 11/30/2023 11:09 AM Modules accepted: Orders * Telephone Encounter - Linda Jett RPh - 11/30/2023 11:07 AM EST Spoke with patient, reviewed PA denial and new medication. Reviewed dosing. Pt to contact in with any adverse effects or lack of response. Thank you, Linda Jett PharmD, JAGJIT Clinical Pharmacist [facility] ([facility]) (formerly Telepharm[facility]) 11/30/23 11:08 AM [phone] * Addendum Note - Joanna Robles PA-C - 11/30/2023 10:34 AM ESTAddended by: JOANNA ROBLES on: 11/30/2023 10:34 AM Modules accepted: Orders * Telephone Encounter - Joanna Robles PA-C - 11/30/2023 10:33 AM EST Amantadine sent in. Taper instructions- please note. * Telephone Encounter - Linda Jett RPh - 11/30/2023 10:04 AM EST Insurance denied Benztropine. Amantadine is step therapy. Please advise if patient can be started on Amantadine or if patient has contraindication. Thank you, Linda Jett PharmD, JAGJIT Clinical Pharmacist [facility] ([facility]) (formerly Telepharmacy) 11/30/23 10:05 AM [phone] * Telephone Encounter - Delon Alan CPhT - 11/30/2023 9:32 AM EST Images from the original note were not included. Checked status of prior authorization for Benztropine through CMM. Routed high priority to refill call center pharmacist pool due to denial. Denial reason: . Thank you, Uri Alan ([facility]) [employer] [facility] III [facility] ([facility]) (formerly Telepharmacy) 11/30/2023, 9:32 AM * Telephone Encounter - Nikki White CPhT - 11/29/2023 1:29 PM EST pt calling to check on status of PA. Thank you, Nikki White CPhT II [employer] [facility] Cook [facility] Clinical Pharmacy Services ([facility]) (Formerly Telepharmacy) 11/29/2023, 1:29 PM * Telephone Encounter - Linda Jett [facility] - 11/29/2023 10:00 AM EST Submitted information in previous note via CMM (Fair: [id number]).. Awaiting payer response. We will follow-up with insurance starting 11/30. Per [facility] request, if no decision is received from insurance by 12/05, we will route back to the [facility] after clarifying with the pharmacy that the claim is still not processing. Thank you, Linda Jett PharmD, JAGJIT Clinical Pharmacist [facility] ([facility]) (formerly Telepharmacy) 11/29/23 10:00 AM [phone] * Telephone Encounter - Ronni Raymond [facility] - 11/28/2023 4:33 PM EST Please submit PA. Include the following documentation: 11/21/23 OV Please copy and paste the following information into PA form: Controlled on this medication What other drugs is there medical record documentation of therapeutic failure on, intolerance to, or contraindication to for this condition? 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 If PA is denied, please also route back to [facility] pool. Thanks, Ronni Raymond PharmD Clinical Pharmacist [facility] ([facility]) (formerly Telepharmacy) [phone] 11/28/2023, 4:33 PM * Telephone Encounter - Dali Knutson [facility] - 11/28/2023 4:10 PM EST Images from the original note were not included. This is a new PA request. Upon review of this prior authorization request, I verified this request is appropriate. This is prescribed by a department for which [facility] is authorized to review prior authorizations This is not a duplicate encounter regarding the same prior authorization The patient is planning to use insurance The insurance information listed in previous note is correct and the plan that is requiring prior authorization The insurance does not cover either brand or generic forms of this script as written without prior authorization The insurance does not cover any NDCs of this script without prior authorization RX Estimate tool confirms this script needs prior authorization Of note, there is nothing currently pending in [facility] for this request. Please advise how to proceed. Thank you, Dali Knutson CPhT Sales Engagement Manager Field Service Poultry Technician [facility] ([facility]) (Formerly [facility]) 11/28/2023,4:10 PM * Telephone Encounter - Padmini Castaneda PHARM Tech - 11/27/2023 3:55 PM EST Pt said he has been waiting for rx for a week. Pt is requesting pa be marked as urgent. Patient calling to inform doctor that the patient's insurance will not pay for this medication without a completed prior authorization. Did confirm this information with the pharmacy. Pt's current insurance information is as follows: Patient name: Jamari Chavira ID number: [id number] BIN number: [id number] PCN number: [id number] Group number: [id number] Subscriber name: Jamari Chavira Primary or Secondary Insurance:Primary Medication: Benztropine Mesylate 0.5 MG Oral Tablet (Cogentin) Reason for Request: needs pa Pharmacy and phone number: [id number]- [place] Rx plan and phone number: Is this a new medication for the patient? Yes What alternative medications does the pharmacy have in stock?: n/a Thanks, Padmini Castaneda Sales Engagement Manager [facility] ([facility]) 11/27/2023,4:02 PM documented in this encounter Plan of Treatment Upcoming Encounters Date Type Department Care Team (Late st Contact Info) Description 12/12/2023 1:30 PM EST Office Visit Orthopaedics [facility] [address] [address] Dago Nicholas PA-C [address] [place] [address] 02/06/2024 12:20 PM EDT Office Visit Family Practice [facility] [address] [place] [address] Jamari Guidry III, MD [address] [facility] [place] [address] Health Maintenance Due Date Last Done Comments Hepatitis C Screening 01/04/1963 Depression Screening 09/20/2022 09/20/2021 B-12 07/31/2024 07/31/2023, 01/27, 07/15/2020, Additional history exists GFR 07/31/2024 07/31/2023, 12/28, 02/09/2022, Additional history exists HbA1c 07/31/2024 07/31/2023, 12/28, 07/28/2022, Additional history exists Albumin/Creatinine Ratio 08/06/2026 08/06/2023, [...] Not on filedocumented as of this encounter Visit Diagnoses Diagnosis Restless arm Schizophrenia, chronic condition (HCC) Residual type schizophrenic disorder, 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
--- OUTSIDE RECORDS SUMMARY | 2024-01-08 05:24 | External Medical Summary | Summary of Care ---
Author Name Unknown Organization [facility] Address [address] [place] [facility] [place] [address] Phone [phone] Care Team Providers Care Dredge Lever Operator Name Role Phone Brea HUNT MD, Jamari Rico Primary Care Provider [phone] Reason for Visit * Reason Comments Knee Pain left Encounter Details Date Type Department Care Team (Latest Contact Info) Description 12/12/2023 1:30 PM EST Office Visit Orthopaedics [facility] [address] [place] [address] Dago Nicholas PA-C [address] [place] [address] Primary osteoarthritis of left knee* Allergies No [...] mRNA, LNP-s, No Pre serve, 2-Dose Series (BRAINDIGIT) 09/19/2021 COVID-19, LNP-s, No Preserve , Gage-sucrose, Ages 12+ (BRAINDIGIT) 02/02/2022 COVID-19, MRNA-LNP, 23-24, P F, 30 MCG/0.3 mL, 12 YRS AND ABOVE, IM (Viraliti-Comirnaty) 07/19/2023 Covid-19 Ad26, Single Dose ([employer] [facility]/J&J) 01/04/2021,01/04/2021 Pneumococcal Conjugate Vacc, 13 Valent (Prevnar) [...] called to verify the correctpatient, procedure, equipment, applications support specialist and site/side marked as required. Patient was prepped and draped in the usual sterile fashion. This chart was completed in part utilizing [employer] Speech Voice Recognition Software. Grammatical errors, random [...] 12:20 PM EDT Office Visit Family Practice [facility] [address] [facility] [place] [address] Jamari Guidry III, MD [address] [facility] [place] [address] 03/13/2024 1:45 PM EDT Office Visit Orthopaedics [facility] [address] [place] [address] Dago Nicholas PA-C [address] [place] [address] Health Maintenance Due Date Last Done Comments [...] Procedure Name Priority Date/Time Associated Diagnosis Comments [place] ARTHROCENTESIS ASPIR&/INJ MAJOR JT/BURSA W/O US Routine 12/12/2023 1:40 PM EST Primary osteoarthritis of left knee documented in this encounter Results * [place] ARTHROCENTESIS ASPIR&/INJ MAJOR JT/BURSA W/O US (12/12/2023 [...] to verify the correct patient, procedure, equipment, applications support specialist and site/side marked as required. Patient was [...] Left documented in this encounter Care Teams Dredge Lever Operator Relationship Specialty Start Date End Date Jamari Guidry III, MD [address] [facility] [place] [address] PCP - General 03/11/01 documented as of this encounter
--- OUTSIDE RECORDS SUMMARY | 2024-01-08 05:24 | External Medical Summary | Summary of Care ---
Author Name Unknown Organization [facility] Address [address] [facility] [place] [address] Phone [phone] Care Team Providers Care Veterinarian Helper Name Role Phone Brea HUNT MD, Jamari Rico Primary Care Provider [phone] Reason for Visit * Reason Comments Knee Pain left Encounter Details Date Type Department Care Team (Latest Contact Info) Description 12/12/2023 1:30 PM EST Office Visit Orthopaedics [facility] [address] [place] [address] Dago Nicholas PA-C [address] [place] [address] Primary osteoarthritis of left knee* Allergies No [...] mRNA, LNP-s, No Pre serve, 2-Dose Series ([employer]) 09/19/2021 COVID-19, LNP-s, No Preserve , Gage-sucrose, Ages 12+ ([employer]) 02/02/2022 COVID-19, MRNA-LNP, 23-24, P F, 30 MCG/0.3 mL, 12 YRS AND ABOVE, IM (appsplit-Comirnaty) 07/19/2023 Covid-19 Ad26, Single Dose (CloudFactory/J&J) 01/04/2021,01/04/2021 Pneumococcal Conjugate Vacc, 13 Valent (Prevnar) [...] called to verify the correctpatient, procedure, equipment, information support project manager and site/side marked as required. Patient was prepped and draped in the usual sterile fashion. This chart was completed in part utilizing [employer] Voice Recognition Software. Grammatical errors, random [...] 12:20 PM EDT Office Visit Family Practice [facility] [address] [facility] [place] [address] Jamari Guidry III, MD [address] [facility] [place] [address] 03/13/2024 1:45 PM EDT Office Visit Orthopaedics [facility] [address] [place] [address] Dago Nicholas PA-C [address] [place] [address] Health Maintenance Due Date Last Done Comments [...] Procedure Name Priority Date/Time Associated Diagnosis Comments MD ARTHROCENTESIS ASPIR&/INJ MAJOR JT/BURSA W/O US Routine 12/12/2023 1:40 PM EST Primary osteoarthritis of left knee documented in this encounter Results * MD ARTHROCENTESIS ASPIR&/INJ MAJOR JT/BURSA W/O US (12/12/2023 [...] to verify the correct patient, procedure, equipment, information support project manager and site/side marked as required. Patient was [...] Left documented in this encounter Care Teams Veterinarian Helper Relationship Specialty Start Date End Date Jamari Guidry III, MD [address] [place] [address] PCP - General 03/11/01 documented as of this encounter
--- OUTSIDE RECORDS SUMMARY | 2024-01-08 05:24 | External Medical Summary | Summary of Care ---
Author Name Unknown Organization [facility] Address [address] [facility] [address] Phone [phone] Care Team Providers Care Acid Loader Name Role Phone Brea HUNT MD, Jamari Rico Primary Care Provider [phone] Reason for Visit * Reason Onset Date Comments Medication Pre-auth 11/27/2023 BENZTROPINE FYI 11/27/2023 FYI SPOKE WITH Maria C REYNA REGARDING BENZTROPINE Encounter Details Date Type Department Care Team (Late st Contact Info) Description 11/27/2023 Telephone Family Practice [facility] [place] [address] [facility] [place] [address] Joanna [facility]les [facility]C [facility] [address] Medication Pre-auth (BENZTROPINE); FYI (FY... Allergies No known active allergiesdocumented as of this encounter (statuses as of 12/13/2023) Medications Medication Sig Dispensed Refills Start Date End Date Status MULTIVITAMIN/INDUSTRIAL COURT MAGISTRATE AL FORMULA TABS OR One tab by [...] as of this encounter (statuses as of 12/13/2023) Active Problems Problem Noted Date Diagnosed Date [...] as of this encounter (statuses as of 12/13/2023) Resolved Problems Problem Noted Date Diagnosed Date Resolved Date Pre-diabetes 11/21/2023 12/13/2023 Dyslipidemia 10/04/2018 04/02/2019 Prediabetes 12/11/2017 08/10/2022 Overview: Per Prediabetes protocol #1 Retention of urine 11/21/2011 8 Overview: ICD-10 update of inactive term documented as of this encounter (statuses as of 12/13/2023) Immunizations Name Administration Dates Next Due COVID-19 mRNA, LNP-s, No Pre serve, 2-Dose Series (Etelos) 09/19/2021 COVID-19, LNP-s, No Preserve , Gage-sucrose, Ages 12+ (Pfizer) 02/02/2022 COVID-19, MRNA-LNP, 23-24, P F, 30 MCG/0.3 mL, 12 YRS AND ABOVE, IM (PFIZER-Comirnaty) 07/19/2023 Covid-19 Ad26, Single Dose (Jose/J&J) 01/04/2021,01/04/2021 Pneumococcal Conjugate Vacc, 13 Valent (Prevnar) [...] encounter Miscellaneous Notes * Telephone Encounter - Aleyda Gregorio, MARLEN - 12/12/2023 4:39 PM EST Pt aware of PCP msg. * Telephone Encounter - Angelica Valadez RN - 12/12/2023 3:02 PM EST Left message for pt to call back. Pleas address below. * Telephone Encounter - Joanna Robles PA-C [...] to see a urologist next week in [address] Mehnaz Tubbs. * [...] medication and has questions - please advise [phone] * Addendum Note - Linda Jett RPh - 11/30/2023 11:09 AM ESTAddended by: LINDA JETT on: 11/30/2023 11:09 AM Modules accepted: Orders * Telephone Encounter - Linda Jett RPh - 11/30/2023 11:07 AM EST Spoke with patient, reviewed PA denial and new medication. Reviewed dosing. Pt to contact in with any adverse effects or lack of response. Thank you, Linda Jett PharmD, JAGJIT Clinical Pharmacist [facility] 11/30/23 11:08 AM [phone] * Addendum Note - Joanna Robles PA-C [...] if patient has contraindication. Thank you, Linda Jett, PharmD, JAGJIT Clinical Pharmacist Centralized [facility] Pharmacy Services ([facility]) (formerly Telepharmacy) 11/30/23 10:05 AM [phone] * Telephone Encounter - Delon Alan CPhT - 11/30/2023 9:32 AM EST Images from the original note were not included. Checked status of prior authorization for Benztropine through [facility]. Routed high priority to refill call center pharmacist pool due to denial. Denial reason: . Thank you, Uri Alan ([facility]) Manager Of Corporate III Centralized Clincal Pharmacy Services ([facility]) (formerly Telepharmacy) 11/30/2023, 9:32 AM * Telephone Encounter - Nikki White CPhT - 11/29/2023 1:29 PM EST pt calling to check on status of PA. Thank you, Nikki White CPhT II Manager Of Corporate Centralized Clinical Pharmacy Services ([facility]) (Formerly Telepharmacy) 11/29/2023, 1:29 PM * Telephone Encounter - Linda Jett [facility] - 11/29/2023 10:00 AM EST Submitted information in previous note via CM (Fair: [id number]).. Awaiting payer response. We will follow-up with insurance starting 11/30. Per [facility] request, if no decision is received from insurance by 12/05, we will route back to the [facility] after clarifying with thepharmacy that the claim is still not processing. Thank you, Linda Jett PharmD, JAGJIT Clinical Pharmacist Centralized Clinical Pharmacy Services ([facility]) (formerly Telepharmacy) 11/29/23 10:00 AM [phone] * [facility] 11/28/2023 4:33 PM EST Please submit [...] upon this and route back to the [facility] pool if no decision is made by the insurance by 12/05, after clarifying with the pharmacy that the claim is still not processing. If PA is denied, please also route back to [facility] pool. Thanks, Ronni Raymond PharmD Clinical Pharmacist Centralized Clinical Pharmacy Services ([facility]) (formerly Telepharmacy) [phone] 11/28/2023, 4:33 PM * Telephone Encounter - Dali Knutson CPhT - 11/28/2023 4:10 PM EST Images from the original note were not included. This is a new PA request. Upon review of this prior authorization request, I verified this request is appropriate. This is prescribed by a department for which [facility] is authorized to review prior authorizations This [...] note, there is nothing currently pending in Center for this request. Please advise how to proceed. Thank you, Dali Knutson CPhT Parasitology Teacher Cardiac Cath Technician Centralized Clinical Pharmacy Services ([facility]) (Formerly [...] follows: Patient name: Jamari Chavira ID number: [id number] BIN number: [id number] PCN number: [id number] Group number: [id number] Subscriber name: Jamari Chavira Primary or Secondary Insurance:Primary Medication: Benztropine Mesylate 0.5 MG Oral Tablet (Cogentin) Reason for Request: needs pa Pharmacy and phone number: E [id number]- [place] Rx plan and phone number: Is this a new medication for the patient? Yes What alternative medications does the pharmacy have in stock?: n/a Padmini Hernandez Parasitology Teacher Centralized [facility] Pharmacy Services ([facility]) 11/27/2023,4:02 PM documented in this encounter Plan of Treatment Upcoming Encounters Date Type Department Care Team (Late st Contact Info) Description 02/06/2024 12:20 PM EDT Office Visit Family Practice [facility] [address] [facility] [place] [address] Jamari Guidry III, MD [address] [facility] [place] [address] 03/13/2024 1:45 PM EDT Office Visit Orthopaedics [facility] [address] [place] [address] Dago Nicholas PA-C [address] [place] [address] Health Maintenance Due Date Last Done Comments [...] disorder documented in this encounter Care Teams Acid Loader Relationship Specialty Start Date End Date Jamari Guidry III, MD 200 [place] [address] PCP - General 03/11/01 documented as of this encounter
--- OUTSIDE RECORDS SUMMARY | 2024-01-08 05:24 | External Medical Summary | Summary of Care ---
Author Name Unknown Organization [facility] Address [address] [facility] [place] [address] Phone [phone] Care Team Providers Care Public Address Announcer Name Role Phone Brea HUNT MD, Jamari Rico Primary Care Provider [phone] Reason for Visit * Reason Onset Date Comments Medication Pre-auth 11/27/2023 BENZTROPINE Encounter Details Date Type Department Care Team (Late st Contact Info) Description 11/27/2023 Telephone Family Practice [facility] [place] [address] [facility] [place] [address] Joanna Robles PA-C [address] [facility] [place] [address] Medication Pre-auth (BENZTROPINE) Allergies No known active allergiesdocumented as of this encounter (statuses as of 12/12/2023) Medications Medication Sig Dispensed Refills Start Date End Date Status MULTIVITAMIN/APPLICATION DESIGNER AL FORMULA TABS OR One tab by [...] as of this encounter (statuses as of 12/12/2023) Active Problems Problem Noted Date Diagnosed Date [...] as of this encounter (statuses as of 12/12/2023) Resolved Problems Problem Noted Date Diagnosed Date Resolved Date Dyslipidemia 10/04/2018 04/02/2019 Prediabetes 12/11/2017 08/10/2022 Overview: Per Prediabetes protocol #1 Retention of urine 11/21/2011 8 Overview: ICD-10 update of inactive term documented as of this encounter (statuses as of 12/12/2023) Immunizations Name Administration Dates Next Due COVID-19 mRNA, LNP-s, No Pre serve, 2-Dose Series (eCollect) 09/19/2021 COVID-19, LNP-s, No Preserve , Gage-sucrose, Ages 12+ (Pfizer) 02/02/2022 COVID-19, MRNA-LNP, 23-24, P F, 30 MCG/0.3 mL, 12 YRS AND ABOVE, IM ([employer]-Comirnaty) 07/19/2023 Covid-19 Ad26, Single Dose ([employer]/J&J) 01/04/2021,01/04/2021 Pneumococcal Conjugate Vacc, 13 Valent (Prevnar) [...] Miscellaneous Notes * Telephone Encounter - Aleyda Gregorio OSA - 12/12/2023 4:39 PM EST Pt aware [...] to see a urologist next week in [address] Mehnaz Tubbs. [...] medication and has questions - please advise [phone] * Addendum Note - Linda Jett RPh [...] Services ([facility]) (formerly Telepharmacy) 11/30/23 11:08 AM [phone] * Addendum Note - Joanna Robles PA-C - 11/30/2023 10:34 AM ESTAddended by: JOANNA ROBLES on: 11/30/2023 10:34 AM Modules accepted: Orders * Telephone Encounter - Joanna Robles PA-C - 11/30/2023 10:33 AM EST Amantadine sent in. Taper instructions- please note. * Telephone Encounter - Linda Jett [facility] - 11/30/2023 10:04 AM EST Insurance denied Benztropine. Amantadine is step therapy. Please advise if patient can be started on Amantadine or if patient has contraindication. Thank you, Linda Jett PharmD, JAGJIT Clinical Pharmacist Centralized Clinical Pharmacy Services ([facility]) (formerly Telepharmacy) 11/30/23 10:05 AM [phone] * Telephone Encounter - Delon Alan CPhT - 11/30/2023 9:32 AM EST Images from the original note were not included. Checked status of prior authorization for Benztropine through [facility]. Routed high priority to refill call center pharmacist pool due to denial. Denial reason: . Thank you, [facility] Shake Out Worker III Centralized Clincal Pharmacy Services ([facility]) (formerly Telepharmacy) 11/30/2023, 9:32 AM * Telephone Encounter - Nikki White CPhT - 11/29/2023 1:29 PM EST pt calling to check on status of PA. Thank you, Nikki White CPhT II Shake Out Worker Centralized Clinical Pharmacy Services ([facility]) (Formerly Telepharmacy) 11/29/2023, 1:29 PM * [facility] - [facility]23 10:00 AM EST Submitted information in previous note via [facility] (Fair: [id number]).. Awaiting payer response. We will follow-up with insurance starting 11/30. Per [facility] request, if no decision is received from insurance by 12/05, we will route back to the [facility] after clarifying with the pharmacy that the claim is still not processing. Thank you, Linda Jett PharmD, JAGJIT Clinical Pharmacist Centralized Clinical Pharmacy Services ([facility]) (formerly [employer]) 11/29/23 10:00 AM [phone] * [facility] - [facility] 11/28/2023 4:33 PM EST Please [...] upon this and route back to the [facility] pool if no decision is made by the insurance by 12/05, after clarifying with the pharmacy that the claim is still not processing. If PA is denied, please also route back to [facility] pool. Thanks, Ronni Raymond PharmD Clinical Pharmacist Centralized Clinical Pharmacy Services ([facility]) (formerly [employer]) [phone] 11/28/2023, 4:33 PM * Telephone Encounter - Dali Knutson CPhT - 11/28/2023 4:10 PM EST Images from the original note were not included. This is a new PA request. Upon review of this prior authorization request, I verified this request is appropriate. This is prescribed by a department for which [facility] is authorized to review prior authorizations This [...] note, there is nothing currently pending in [employer] for this request. Please advise how to proceed. Thank you, Dali Knutson CPhT Ssas Developer Datawarehouse Developer Centralized Clinical Pharmacy Services ([facility]) (Formerly Telepharmacy) [...] follows: Patient name: Jamari Chavira ID number: [id number] BIN number: [id number] PCN number: [id number] Group number: [id number] Subscriber name: Jamari Chavira Primary or Secondary Insurance:Primary Medication: Benztropine Mesylate 0.5 MG Oral Tablet (Cogentin) Reason for Request: needs pa [facility] and phone [id number]- [place] Rx plan and phone number: Is this a new medication for the patient? Yes What alternative medications does the pharmacy have in stock?: n/a Padmini Hernandez Ssas Developer Centralized Clinical Pharmacy Services ([facility]) 11/27/2023,4:02 PM documented in this encounter Plan of Treatment Upcoming Encounters Date Type Department Care Team (Late st Contact Info) Description 02/06/2024 12:20 PM EDT Office Visit Family Practice [facility] [address] [facility] [place] [address] Jamari Guidry III, MD 200 [facility] [place] [address] 03/13/2024 1:45 PM EDT Office Visit Orthopaedics [facility] [address] [place] [address] Dago Nicholas PA-C [address] [place] [address] Health Maintenance Due Date Last Done Comments [...] disorder documented in this encounter Care Teams Public Address Announcer Relationship Specialty Start Date End Date Jamari Guidry III, MD 200 [facility] [place] [address] PCP - General 03/11/01 documented as of this encounter
--- OUTSIDE RECORDS SUMMARY | 2024-01-08 05:24 | External Medical Summary | Summary of Care ---
Author Name Unknown Organization [facility] Address [address] [facility] [place] [address] Phone [phone] Care Team Providers Care Senior Water/Wastewater Engineer Name Role Phone Brea HUNT MD, Jamari Rico Primary Care Provider [phone] Reason for Visit * Reason Onset Date Comments Medication Pre-auth 11/27/2023 BENZTROPINE Encounter Details Date Type Department Care Team (Late st Contact Info) Description 11/27/2023 Telephone Family Practice [facility] [place] [address] [facility] [place] [address] Joanna Robles PA-C [address] [facility] [place] [address] Medication Pre-auth (BENZTROPINE) Allergies No known active allergiesdocumented as of this encounter (statuses as of 12/12/2023) Medications Medication Sig Dispensed Refills Start Date End Date Status MULTIVITAMIN/WIND SITE MANAGER AL FORMULA TABS OR One tab by [...] mRNA, LNP-s, No Pre serve, 2-Dose Series ([employer]) 09/19/2021 COVID-19, LNP-s, No Preserve , Gage-sucrose, Ages 12+ (Pfizer) 02/02/2022 COVID-19, MRNA-LNP, 23-24, P F, 30 MCG/0.3 mL, 12 YRS AND ABOVE, IM (KVK TEAM-Comirnaty) 07/19/2023 Covid-19 Ad26, Single Dose (eblizz/J&J) 01/04/2021,01/04/2021 Pneumococcal Conjugate Vacc, 13 Valent (Prevnar) [...] encounter Miscellaneous Notes * Telephone Encounter - Angelica Valadez RN [...] to see a urologist next week in [facility] al at [address] Mehnaz Tubbs. * [...] medication and has questions - please advise [phone] * Addendum Note - Linda Jett RPh - 11/30/2023 11:09 AM ESTAddended by: LINDA JETT on: 11/30/2023 11:09 AM Modules accepted: Orders * Telephone Encounter - Linda Jett RP - 11/30/2023 11:07 AM EST Spoke with patient, reviewed PA denial and new medication. Reviewed dosing. Pt to contact in with any adverse effects or lack of response. Thank you, Linda Jett PharmD, JAGJIT Clinical Pharmacist Centralized Clinical Pharmacy Services ([facility]) (formerly Telepharmacy) 11/30/23 11:08 AM [phone] * Addendum Note - Joanna Robles PA-C - 11/30/2023 10:34 AM ESTAddended by: JOANNA ROBLES on: 11/30/2023 10:34 AM Modules accepted: Orders * Telephone Encounter - Joanna Robles PA-C - 11/30/2023 10:33 AM EST Amantadine sent in. Taper instructions- please note. * Telephone Encounter - Linda Jett RP - 11/30/2023 10:04 AM EST Insurance denied Benztropine. Amantadine is step therapy. Please advise if patient can be started on Amantadine or if patient has contraindication. Thank you, Linda Jett, PharmD, JAGJIT Clinical Pharmacist Centralized Clinical Pharmacy Services ([facility]) (formerly Telepharmacy) 11/30/23 10:05 AM [phone] * Telephone Encounter - Delon Alan CPhT - 11/30/2023 9:32 AM EST Images from the original note were not included. Checked status of prior authorization for Benztropine through [facility]. Routed high priority to refill call center pharmacist pool due to denial. Denial reason: . Thank you, Uri Alan ([facility]) Inlayer Silver III Centralized Clincal Pharmacy Services ([facility]) (formerly Telepharmacy) 11/30/2023, 9:32 AM * Telephone Encounter - Nikki White CPhT - 11/29/2023 1:29 PM EST pt calling to check on status of PA. Thank you, Nikki White CPhT II Inlayer Silver Centralized Clinical Pharmacy Services ([facility]) (Formerly Telepharmacy) 11/29/2023, 1:29 PM * Telephone Encounter - Linda Jett RP - 11/29/2023 10:00 AM EST Submitted information in previous note via [facility] (Fair: [id number]).. Awaiting payer response. We will follow-up with insurance starting 11/30. Per [facility] request, if no decision is received from insurance by 12/05, we will route back to the [facility] after clarifying with the pharmacy that the claim is still not processing. Thank you, Linda Jett PharmD, JAGJIT Clinical Pharmacist Centralized Clinical Pharmacy Services ([facility]) (formerly Telepharmacy) 11/29/23 10:00 AM [phone] * Telephone Encounter - Ronni Raymond [facility] - 11/28/2023 4:33 PM EST Please submit [...] upon this and route back to the [facility] pool if no decision is made by the insurance by 12/05, after clarifying with the pharmacy that the claim is still not processing. If PA is denied, please also route back to [facility] pool. Thanks, Ronni Raymond PharmD Clinical Pharmacist Centralized Clinical Pharmacy Services ([facility]) (formerly Telepharmacy) [phone] 11/28/2023, 4:33 PM * Telephone Encounter - Dali Knutson [facility] - 11/28/2023 4:10 PM EST Images from the original note were not included. This is a new PA request. Upon review of this prior authorization request, I verified this request is appropriate. This is prescribed by a department for which [facility] is authorized to review prior authorizations This [...] to proceed. Thank you, Dali Knutson CPhT Stone Gluer Accounting Methods Analyst Centralized Clinical Pharmacy Services ([facility]) (Formerly Telepharmacy) [...] follows: Patient name: Jamari Chavira ID number: [id number] BIN number: [id number] PCN number: [id number] Group number: [id number] Subscriber name: Jamari Chavira Primary or Secondary Insurance:Primary Medication: Benztropine Mesylate 0.5 MG Oral Tablet (Cogentin) Reason for Request: needs pa [id number]- [place] Rx plan and phone number: Is this a new medication for the patient? Yes What alternative medications does the pharmacy have in stock?: n/a Padmini Hernandez Stone Gluer Centralized Clinical Pharmacy Services ([facility]) 11/27/2023,4:02 PM documented in this encounter Plan of Treatment Upcoming Encounters Date Type Department Care Team (Late st Contact Info) Description 02/06/2024 12:20 PM EDT Office Visit Family Practice [facility] [address] [facility] [place], [place] [address] Jamari Guidry III, MD [address] [facility] [place] [address] 03/13/2024 1:45 PM EDT Office Visit Orthopaedics [facility] [address] [place] [address] Dago Nicholas PA-C [address] [place] [address] Health Maintenance Due Date Last Done Comments [...] disorder documented in this encounter Care Teams Senior Water/Wastewater Engineer Relationship Specialty Start Date End Date Jamari Guidry III, MD [address] [facility] [place] [address] PCP - General 03/11/01 documented as of this encounter
--- OUTSIDE RECORDS SUMMARY | 2024-01-08 05:24 | External Medical Summary | Summary of Care ---
Author Name Unknown Organization [facility] Address [address] [place] [address] Phone [phone] Care Team Providers Care Supervisor Toy Parts Former Name Role Phone Brea HUNT MD, Jamari Rico Primary Care Provider [phone] Reason for Visit * Reason Comments Knee Pain left Encounter Details Date Type Department Care Team (Latest Contact Info) Description 12/12/2023 1:30 PM EST Office Visit Orthopaedics [facility] [address] [place] [address] Dago Nicholas PA-C [address] [place] [address] Primary osteoarthritis of left knee* Allergies No [...] 2 mL 2 mL IJ ONCE 12/12/2023 12/13/2023 Activ e documented as of this encounter (statuses as [...] mRNA, LNP-s, No Pre serve, 2-Dose Series (Sumpto) 09/19/2021 COVID-19, LNP-s, No Preserve , Gage-sucrose, Ages 12+ (Sumpto) 02/02/2022 COVID-19, MRNA-LNP, 23-24, P F, 30 MCG/0.3 mL, 12 YRS AND ABOVE, IM (PredictAd-Comirnaty) 07/19/2023 Covid-19 Ad26, Single Dose (RxApps/J&J) 01/04/2021,01/04/2021 Pneumococcal Conjugate Vacc, 13 Valent (Prevnar) [...] called to verify the correctpatient, procedure, equipment, bilingual patient support caseworker and site/side marked as required. Patient was prepped and draped in the usual sterile fashion. This chart was completed in part utilizing [employer] Speech Voice Recognition Software. Grammatical errors, random [...] 12:20 PM EDT Office Visit Family Practice [facility] [address] [facility] [place] [address] Jamari Guidry III, MD [address] [facility] [place] [address] 03/13/2024 1:45 PM EDT Office Visit Orthopaedics [facility] [address] [place] [address] Dago Nicholas PA-C [address] [place] [address] Health Maintenance Due Date Last Done Comments [...] Procedure Name Priority Date/Time Associated Diagnosis Comments OH ARTHROCENTESIS ASPIR&/INJ MAJOR JT/BURSA W/O US Routine 12/12/2023 1:40 PM EST Primary osteoarthritis of left knee documented in this encounter Results * OH ARTHROCENTESIS ASPIR&/INJ MAJOR JT/BURSA W/O US (12/12/2023 [...] to verify the correct patient, procedure, equipment, bilingual patient support caseworker and site/side marked as required. Patient was prepped and draped in the usual sterile fashion. Dago Nicholas PA-C PROCDOC FORM documented in this encounter Visit Diagnoses Diagnosis Primary osteoarthritis of left knee- Primary Primary localized osteoarthrosis, lower leg documented in this encounter Care Teams Supervisor Toy Parts Former Relationship Specialty Start Date End Date Jamari Guidry III, MD [address] [place] [address], [place] [id number] PCP - General 03/11/01 documented as of this encounter
--- OUTSIDE RECORDS SUMMARY | 2024-01-08 05:25 | External Medical Summary | Summary of Care ---
Author Name Unknown Organization [facility] Address [address] [facility] [place] [address] Phone [phone] Care Team Providers Care Wharf Worker Name Role Phone Brea HUNT MD, Jamari Rico Primary Care Provider [phone] Reason for Visit * Reason Onset Date Comments Medication Pre-auth 11/27/2023 BENZTROPINE Encounter Details Date Type Department Care Team (Late st Contact Info) Description 11/27/2023 Telephone Family [facility] [address] [facility] [place] [address] Joanna Robles PA-C [address] [place] [address] Medication Pre-auth (BENZTROPINE) Allergies No known active allergiesdocumented as of this encounter (statuses as of 12/05/2023) Medications Medication Sig Dispensed Refills Start Date End Date Status MULTIVITAMIN/BOILER SHOP MECHANIC AL FORMULA TABS OR One tab by [...] as of this encounter (statuses as of 12/05/2023) Active Problems Problem Noted Date Diagnosed Date [...] as of this encounter (statuses as of 12/05/2023) Resolved Problems Problem Noted Date Diagnosed Date Resolved Date Dyslipidemia 10/04/2018 04/02/2019 Prediabetes 12/11/2017 08/10/2022 Overview: Per Prediabetes protocol #1 Retention of urine 11/21/2011 8 Overview: ICD-10 update of inactive term documented as of this encounter (statuses as of 12/05/2023) Immunizations Name Administration Dates Next Due COVID-19 mRNA, LNP-s, No Pre serve, 2-Dose Series (Unbooked Ltd) 09/19/2021 COVID-19, LNP-s, No Preserve , Gage-sucrose, Ages 12+ (Pfizer) 02/02/2022 COVID-19, MRNA-LNP, 23-24, P F, 30 MCG/0.3 mL, 12 YRS AND ABOVE, IM (PERORA-Comirnaty) 07/19/2023 Covid-19 Ad26, Single Dose (Solmentum/J&J) 01/04/2021,01/04/2021 Pneumococcal Conjugate Vacc, 13 Valent (Prevnar) [...] encounter Miscellaneous Notes * Telephone Encounter - Zayda Nice, MIGUEL - 12/05/2023 3:34 PM EST Left message for pt to call back. * Telephone Encounter - Renetta Hernandez OSA - 12/04/2023 5:41 PM EST Pt read the side effects of the medication and has questions - please advise [phone] * Addendum Note - Linda Jett RPh [...] Services (CCPS) (formerly Telepharmacy) 11/30/23 11:08 AM [phone] * Addendum Note - Joanna Robles PA-C [...] JAGJIT Clinical Pharmacist Centralized Clinical Pharmacy Services ([facility]) (formerly Telepharmacy) 11/30/23 10:05 AM [phone] * Telephone Encounter - Delon Alan CPhT - 11/30/2023 9:32 AM EST Images from the original note were not included. Checked status of prior authorization for Benztropine through CMM. Routed high priority to refill call center pharmacist pool due to denial. Denial reason: . Thank you, Uri Alan ([facility]) Grocery Cashier III Centralized Clincal Pharmacy Services ([facility]) (formerly Telepharmacy) 11/30/2023, 9:32 AM * Telephone Encounter - Nikki White CPhT - 11/29/2023 1:29 PM EST pt calling to check on status of PA. Thank you, Nikki White CPhT II Grocery Cashier [facility] Clinical Pharmacy Services ([facility]) (Formerly Telepharmacy) 11/29/2023, 1:29 PM * Telephone Encounter - Linda Jett [facility] - 11/29/2023 10:00 AM EST Submitted information in previous note via CMM (Fair: [id number]).. Awaiting payer response. We will follow-up with insurance starting 11/30. Per [facility] request, if no decision is received from insurance by 12/05, we will route back to the [facility] after clarifying with the pharmacy that the claim is still not processing. Thank you, Linda Jett PharmD, JAGJIT Clinical Pharmacist Centralized Clinical Pharmacy Services ([facility]) (formerly Telepharmacy) 11/29/23 10:00 AM [phone] * Telephone Encounter - Ronni Raymond [facility] - 11/28/2023 4:33 PM EST Please submit [...] PharmD Clinical Pharmacist Centralized Clinical Pharmacy Services ([facility]) (formerly Telepharmacy) [phone] 11/28/2023, 4:33 PM * Telephone Encounter - Dali Knutson [facility] - 11/28/2023 4:10 PM EST Images from the original note were not included. This is a new PA request. Upon review of this prior authorization request, I verified this request is appropriate. This is prescribed by a department for which [facility] is authorized to review prior [...] to proceed. Thank you, Dali Knutson CPhT Umbrella Repairer Corporate Human Resources Manager Centralized Clinical Pharmacy Services ([facility]PS) (Formerly Telepharmacy) [...] follows: Patient name: Jamari Chavira ID number: [id number] BIN number: [id number] PCN number: [id number] Group number: [id number] Subscriber name: Jamari Chavira Primary or Secondary Insurance:Primary Medication: Benztropine Mesylate 0.5 MG Oral Tablet (Cogentin) Reason for Request: needs pa Pharmacy and phone number: [facility] #[id number]- [place] Rx plan and phone number: Is this a new medication for the patient? Yes What alternative medications does the pharmacy have in stock?: n/a Thanks, Padmini Castaneda Umbrella Repairer Centralized Clinical Pharmacy Services ([facility]PS) 11/27/2023,4:02 PM documented in this encounter Plan of Treatment Upcoming Encounters Date Type Department Care Team (Late st Contact Info) Description 12/12/2023 1:30 PM EST Office Visit Orthopaedics [facility] [address] [place] [address] Dago Nicholas PA-C [address] [place] [address] 02/06/2024 12:20 PM EDT Office Visit Family Practice [facility] [address] [place] [address] Jamari Guidry III, MD [address] [facility] [place] [address] Health Maintenance Due Date Last Done Comments [...] disorder documented in this encounter Care Teams Wharf Worker Relationship Specialty Start Date End Date Jamari Guidry III, MD [address] [place] [address] PCP - General 03/11/01 documented as of this encounter
--- OUTSIDE RECORDS SUMMARY | 2024-01-08 05:25 | External Medical Summary | Summary of Care ---
Author Name Unknown Organization [facility] Address [address] [facility] [place] [address] Phone [phone] Care Team Providers Care Hvac Engineer Name Role Phone Brea HUNT MD, Jamari Rico Primary Care Provider [phone] Reason for Visit * Reason Onset Date Comments Medication Pre-auth 11/27/2023 BENZTROPINE Encounter Details Date Type Department Care Team (Late st Contact Info) Description 11/27/2023 Telephone [facility] [address] [facility] [place] [address] Joanna Robles PA-C [address] [facility] [place] [address] Medication Pre-auth (BENZTROPINE) Allergies No known active allergiesdocumented as of this encounter (statuses as of 12/04/2023) Medications Medication Sig Dispensed Refills Start Date End Date Status MULTIVITAMIN/SHIATSU THERAPIST AL FORMULA TABS OR One tab by [...] as of this encounter (statuses as of 12/04/2023) Active Problems Problem Noted Date Diagnosed Date [...] as of this encounter (statuses as of 12/04/2023) Resolved Problems Problem Noted Date Diagnosed Date Resolved Date Dyslipidemia 10/04/2018 04/02/2019 Prediabetes 12/11/2017 08/10/2022 Overview: Per Prediabetes protocol #1 Retention of urine 11/21/2011 8 Overview: ICD-10 update of inactive term documented as of this encounter (statuses as of 12/04/2023) Immunizations Name Administration Dates Next Due COVID-19 mRNA, LNP-s, No Pre serve, 2-Dose Series ([employer]) 09/19/2021 COVID-19, LNP-s, No Preserve , Gage-sucrose, Ages 12+ (Pfizer) 02/02/2022 COVID-19, MRNA-LNP, 23-24, P F, 30 MCG/0.3 mL, 12 YRS AND ABOVE, IM (Unisfair-Comirnaty) 07/19/2023 Covid-19 Ad26, Single Dose (Cloze/J&J) 01/04/2021,01/04/2021 Pneumococcal Conjugate Vacc, 13 Valent (Prevnar) [...] encounter Miscellaneous Notes * Telephone Encounter - Renetta Hernandez OSA - 12/04/2023 5:41 PM EST Pt read the side effects of the medication and has questions - please advise [phone] * Addendum Note - Linda Jett RP - 11/30/2023 11:09 AM ESTAddended by: LINDA [...] Services (CCPS) (formerly Telepharmacy) 11/30/23 11:08 AM [phone] * Addendum Note - Joanna Robles PA-C [...] Services (CCPS) (formerly Telepharmacy) 11/30/23 10:05 AM [phone] * Telephone Encounter - Delon Alan CPhT - 11/30/2023 9:32 AM EST Images from the original note were not included. Checked status of prior authorization for Benztropine through CMM. Routed high priority to refill call center pharmacist pool due to denial. Denial reason: . Thank you, Uri Alan ([facility]) Laundry Operator Wash Room III Centralized Clincal Pharmacy Services ([facility]PS) (formerly Telepharmacy) 11/30/2023, 9:32 AM * Telephone Encounter - Nikki White CPhT - 11/29/2023 1:29 PM EST pt calling to check on status of PA. Thank you, Nikki White CPhT II Laundry Operator Wash Room Centralized Clinical Pharmacy Services ([facility]) (Formerly Telepharmacy) 11/29/2023, 1:29 PM * Telephone Encounter - Linda Jett isabel - 11/29/2023 10:00 AM EST Submitted information in previous note via CM (Fair: [id number]).. Awaiting payer response. We will follow-up with insurance starting 11/30. Per [facility] request, if no decision is received from insurance by 12/05, we will route back to the [facility] after clarifying with the pharmacy that the claim is still not processing. Thank you, Linda Jett PharmD, JAGJIT Clinical Pharmacist Centralized Clinical Pharmacy Services ([facility]PS) (formerly Telepharmacy) 11/29/23 10:00 AM [phone] * Telephone Encounter - Ronni Raymond [facility] - 11/28/2023 4:33 PM EST Please [...] upon this and route back to the [facility] if no decision is made by the insurance by 12/05, after clarifying with the pharmacy that the claim is still not processing. If PA is denied, please also route back to [facility]. Thanks, Ronni Raymond, PharmD Clinical Pharmacist Centralized Clinical Pharmacy Services ([facility]) (formerly [facility]) [phone] 11/28/2023, 4:33 PM * Telephone Encounter - Dali Knutson CPhT - 11/28/2023 4:10 PM EST Images from the original note were not included. This is a new PA request. Upon review of this prior authorization request, I verified this request is appropriate. This is prescribed by a department for which [facility] is authorized to review prior authorizations This [...] note, there is nothing currently pending in [facility] for this request. Please advise how to proceed. Thank you, Dali Knutson [facility] Gis Database Administrator Elementary Reading Tutor Centralized Clinical Pharmacy Services ([facility]PS) (Formerly Telepharmacy) [...] follows: Patient name: Jamari Chavira ID number: [id number] BIN number: [id number] PCN number: [id number] Group number: [id number] Subscriber name: Jamari Chavira Primary or Secondary Insurance:Primary Medication: Benztropine Mesylate 0.5 MG Oral Tablet (Cogentin) Reason for Request: needs pa Pharmacy and phone number: [facility]ACY #[id number]- [place] Rx plan and phone number: Is this a new medication for the patient? Yes What alternative medications does the pharmacy have in stock?: n/a Padmini Hernandez Gis Database Administrator Centralized Clinical Pharmacy Services ([facility]PS) 11/27/2023,4:02 PM documented in this encounter Plan of Treatment Upcoming Encounters Date Type Department Care Team (Late st Contact Info) Description 12/12/2023 1:30 PM EST Office Visit Orthopaedics [facility] [address] [place] [address] Dago Nicholas PA-C [address] [place] [address] 02/06/2024 12:20 PM EDT Office Visit Family Practice [facility] [address] [facility] [place] [address] [place] Jamari HUNT MD [address] [facility] [place] [address] Health Maintenance Due Date Last Done Comments [...] disorder documented in this encounter Care Teams Hvac Engineer Relationship Specialty Start Date End Date Jamari Guidry III, MD [address] [facility] [place], [place] [address] PCP - General 03/11/01 documented as of this encounter
--- OUTSIDE RECORDS SUMMARY | 2024-01-08 05:25 | External Medical Summary | Summary of Care ---
Author Name Unknown Organization [facility] Address [address] [facility] [place] [address] Phone [phone] Care Team Providers Care Plaster Form Maker Name Role Phone Brea HUNT MD, Jamari Rico Primary Care Provider [phone] Reason for Visit * Reason Onset Date Comments Medication Pre-auth 11/27/2023 BENZTROPINE Encounter Details Date Type Department Care Team (Late st Contact Info) Description 11/27/2023 Telephone Family Practice [facility] [address] [facility] [place] [address] Joanna Robles PA-C [address] [facility] [place] [address] Medication Pre-auth (BENZTROPINE) Allergies No known active allergiesdocumented as of this encounter (statuses as of 12/05/2023) Medications Medication Sig Dispensed Refills Start Date End Date Status MULTIVITAMIN/REPORTER ANCHOR AL FORMULA TABS OR One tab by [...] mRNA, LNP-s, No Pre serve, 2-Dose Series (AMT ([employer])) 09/19/2021 COVID-19, LNP-s, No Preserve , Gage-sucrose, Ages 12+ (Pfizer) 02/02/2022 COVID-19, MRNA-LNP, 23-24, P F, 30 MCG/0.3 mL, 12 YRS AND ABOVE, IM (Handup-Comirnaty) 07/19/2023 Covid-19 Ad26, Single Dose (Artsicle/J&J) 01/04/2021,01/04/2021 Pneumococcal Conjugate Vacc, 13 Valent (Prevnar) [...] encounter Miscellaneous Notes * Telephone Encounter - Kishan Gomez DO [...] medication and has questions - please advise [phone] * Addendum Note - Linda Jett RPh [...] Services (CCPS) (formerly Telepharmacy) 11/30/23 11:08 AM [phone] * Addendum Note - Joanna Robles PA-C [...] has contraindication. Thank you, Linda Jett PharmD, JGAJIT Clinical Pharmacist Centralized Clinical Pharmacy Services ([facility]PS) (formerly Telepharmacy) 11/30/23 10:05 AM [phone] * Telephone Encounter - Delon Alan CPhT - 11/30/2023 9:32 AM EST Images from the original note were not included. Checked status of prior authorization for Benztropine through [facility]. Routed high priority to refill call center pharmacist pool due to denial. Denial reason: . Thank you, Uri Alan ([place]) Chip Loft Worker III Centralized Clincal Pharmacy Services ([facility]PS) (formerly Telepharmacy) 11/30/2023, 9:32 AM * Telephone Encounter - Nikki White CPhT - 11/29/2023 1:29 PM EST pt calling to check on status of PA. Thank you, Nikki hWite CPhT II Chip Loft Worker Centralized Clinical Pharmacy Services ([facility]PS) (Formerly Telepharmacy) 11/29/2023, 1:29 PM * Telephone Encounter - Linda Jett [facility] - 11/29/2023 10:00 AM EST Submitted information in previous note via CM (Fair: [id number]).. Awaiting payer response. We will follow-up with insurance starting 11/30. Per [facility] request, if no decision is received from insurance by 12/05, we will route back to the [facility] after clarifying with the pharmacy that the claim is still not processing. Thank you, Linda Jett, PharmD, JAGJIT Clinical Pharmacist Centralized Clinical Pharmacy Services ([facility]) (formerly Telepharmacy) 11/29/23 10:00 AM [phone] * [facility] - [facility] 11/28/[facility]23 4:33 PM EST Please [...] upon this and route back to the [facility] pool if no decision is made by the insurance by 12/05, after clarifying with the pharmacy that the claim is still not processing. If PA is denied, please also route back to RPh pool. Thanks, Ronni Raymond, Silvana Clinical Pharmacist Centralized Clinical Pharmacy Services ([facility]) [facility] [phone] 11/28/2023, 4:33 PM * Telephone Encounter - Dali Knutson CPhT - 11/28/2023 4:10 PM EST Images from the original note were not included. This is a new PA request. Upon review of this prior authorization request, I verified this request is appropriate. This is prescribed by a department for which [facility] is authorized to review prior authorizations [...] note, there is nothing currently pending in [place] for this request. Please advise how to proceed. Thank you, Dali Knutson CPhT Blanchard Grinder Operator Crop And Soil Scientist Centralized Clinical Pharmacy Services ([facility]PS) (Formerly Telepharmacy) [...] follows: Patient name: Jamari Chavira ID number: [id number] BIN number: [id number] PCN number: [id number] Group number: [id number] Subscriber name: Jamari Chavira Primary or Secondary Insurance:Primary Medication: Benztropine Mesylate 0.5 MG Oral Tablet (Cogentin) Reason for Request: needs pa Pharmacy and phone number: [id number] [address] [facility] Rx plan and phone number: Is this a new medication for the patient? Yes What alternative medications does the pharmacy have in stock?: n/a Padmini Hernandez Blanchard Grinder Operator Centralized Clinical Pharmacy Services ([facility]) 11/27/2023,4:02 PM documented in this encounter Plan of Treatment Upcoming Encounters Date Type Department Care Team (Late st Contact Info) Description 12/12/2023 1:30 PM EST Office Visit Orthopaedics [facility] [address] [place] [address] Dago Nicholas PA-C [address] [place] [address] 02/06/2024 12:20 PM EDT Office Visit Family Practice [facility] 200 [facility] [place] [address] Jamari Guidry III, MD 200 [facility] [place] [address] Health Maintenance Due Date Last Done Comments [...] disorder documented in this encounter Care Teams Plaster Form Maker Relationship Specialty Start Date End Date Jamari Guidry III, MD 200 [place] [address] PCP - General 03/11/01 documented as of this encounter
--- OUTSIDE RECORDS SUMMARY | 2024-01-08 05:25 | External Medical Summary | Summary of Care ---
Author Name Unknown Organization [facility] Address [address] [facility] [place] [address] Phone [phone] Care Team Providers Care Generalist Name Role Phone Brea HUNT MD, Jamari Rico Primary Care Provider [phone] Reason for Visit * Reason Onset Date Comments Medication Pre-auth 11/27/2023 BENZTROPINE Encounter Details Date Type Department Care Team (Late st Contact Info) Description 11/27/2023 Telephone Family Practice [facility] [address] [facility] [place] [address] Joanna Robles PA-C [address] [facility] [place] [address] Medication Pre-auth (BENZTROPINE) Allergies No known active allergiesdocumented as of this encounter (statuses as of 12/11/2023) Medications Medication Sig Dispensed Refills Start Date End Date Status MULTIVITAMIN/INTERCEPTOR OPERATOR AL FORMULA TABS OR One tab by [...] mRNA, LNP-s, No Pre serve, 2-Dose Series (Botanica Exotica) 09/19/2021 COVID-19, LNP-s, No Preserve , Gage-sucrose, Ages 12+ (Pfizer) 02/02/2022 COVID-19, MRNA-LNP, 23-24, P F, 30 MCG/0.3 mL, 12 YRS AND ABOVE, IM (Stumpedia-Comirnaty) 07/19/2023 Covid-19 Ad26, Single Dose (Wave Broadband/J&J) 01/04/2021,01/04/2021 Pneumococcal Conjugate Vacc, 13 Valent (Prevnar) [...] encounter Miscellaneous Notes * Telephone Encounter - Althea Kidd LPN - 12/11/2023 12:29 PM EST Patient is calling. He doesn't want to mess with his urinary system. Last time he did it was very painful to be catheterized. The tremor is mild. He will live with it. He is scheduled to see a urologist next week in [place], [facility] at [address] Mehnaz Tubbs. * [...] medication and has questions - please advise [phone] * Addendum Note - Linda Jett RP [...] Pharmacist Centralized Clinical Pharmacy Services ([facility]PS) (formerly [employer]) 11/30/23 11:08 AM [phone] * Addendum Note - Joanna Robles PA-C [...] Services (CCPS) (formerly Telepharmacy) 11/30/23 10:05 AM [phone] * Telephone Encounter - Delon Alan CPhT - 11/30/2023 9:32 AM EST Images from the original note were not included. Checked status of prior authorization for Benztropine through CMM. Routed high priority to refill call center pharmacist pool due to denial. Denial reason: . Thank you, Uri Alan ([facility]) Cna Hha III Centralized Clincal Pharmacy Services ([facility]PS) (formerly Telepharmacy) 11/30/2023, 9:32 AM * Telephone Encounter - Nikki White CPhT - 11/29/2023 1:29 PM EST pt calling to check on status of PA. Thank you, Nikki White CPhT II Cna Hha Centralized Clinical Pharmacy Services ([facility]) (Formerly Telepharmacy) 11/29/2023, 1:29 PM * Telephone Encounter - Linda Jett [facility] - 11/29/2023 10:00 AM EST Submitted information in previous note via CMM (Fair: [id number]).. Awaiting payer response. We will follow-up with insurance starting 11/30. Per [facility] request, if no decision is received from insurance by 12/05, we will route back to the [facility] after clarifying with the pharmacy that the claim is still not processing. Thank you, Linda Jett, PharmD, JAGJIT Clinical Pharmacist Centralized Clinical Pharmacy Services ([facility]PS) (formerly Telepharmacy) 11/29/23 10:00 AM [phone] * Telephone Encounter - Ronni Raymond [facility] - 11/28/2023 4:33 PM EST [...] upon this and route back to the [facility] pool if no decision is made by the insurance by 12/05, after clarifying with the pharmacy that the claim is still not processing. If PA is denied, please also route back to [facility] pool. Thanks, Ronni Raymond, PharmD Clinical Pharmacist Centralized Clinical Pharmacy Services ([facility]) (formerly [employer]) [phone] 11/28/2023, 4:33 PM * Telephone Encounter - Dali Knutson CPhT - 11/28/2023 4:10 PM EST Images from the original note were not included. This is a new PA request. Upon review of this prior authorization request, I verified this request is appropriate. This is prescribed by a department for which [facility] is authorized to review prior authorizations This [...] note, there is nothing currently pending in [facility] for this request. Please advise how to proceed. Thank you, Dali Knutson [facility] Special Effects Technician City Supervisor Centralized Clinical Pharmacy Services ([facility]) ([facility] 11/28/2023,4:10 PM * Telephone Encounter - Padmini [...] follows: Patient name: Jamari Chavira ID number: [id number] BIN number: [id number] PCN number: [id number] Group number: [id number] Subscriber name: Jamari Chavira Primary or Secondary Insurance:Primary Medication: Benztropine Mesylate 0.5 MG Oral Tablet (Cogentin) Reason for Request: needs pa Pharmacy and phone number: [id number] [address] [facility] [place] Rx plan and phone number: Is this a new medication for the patient? Yes What alternative medications does the pharmacy have in stock?: n/a Padmini Hernandez Special Effects Technician Centralized Clinical Pharmacy Services ([facility]PS) 11/27/2023,4:02 PM documented in this encounter Plan of Treatment Upcoming Encounters Date Type Department Care Team (Late st Contact Info) Description 12/12/2023 1:30 PM EST Office Visit Orthopaedics [facility] [address] [address] Dago Nicholas PA-C [address] [address] 02/06/2024 12:20 PM EDT Office Visit Family Practice [facility] [place] [address] [facility] [place] [address] Jamari Guidry III, MD [address] [facility] [place] [address] Health Maintenance Due Date Last Done Comments [...] disorder documented in this encounter Care Teams Generalist Relationship Specialty Start Date End Date Jamari Guidry III, MD [address] [place] [address] PCP - General 03/11/01 documented as of this encounter
--- OUTSIDE RECORDS SUMMARY | 2024-01-08 05:25 | External Medical Summary | Summary of Care ---
Author Name Unknown Organization [facility] Address [address] [facility] [address] Phone [phone] Care Team Providers Care Stock Broker Supervisor Name Role Phone Brea HUNT MD, Jamari Rico Primary Care Provider [phone] Reason for Visit * Reason Onset Date Comments Medication Pre-auth 11/27/2023 BENZTROPINE Encounter Details Date Type Department Care Team (Late st Contact Info) Description 11/27/2023 [facility]phone [facility] [address] [place] [address] Joanna Robles PA-C [address] [place] [address] Medication Pre-auth (BENZTROPINE) Allergies No known active allergiesdocumented as of this encounter (statuses as of 12/11/2023) Medications Medication Sig Dispensed Refills Start Date End Date Status MULTIVITAMIN/UNIT NURSE [place] FORMULA TABS OR One tab by [...] mRNA, LNP-s, No Pre serve, 2-Dose Series (AVA Solar) 09/19/2021 COVID-19, LNP-s, No Preserve , Gage-sucrose, Ages 12+ (Pfizer) 02/02/2022 COVID-19, MRNA-LNP, 23-24, P F, 30 MCG/0.3 mL, 12 YRS AND ABOVE, IM (trinket-Comirnaty) 07/19/2023 Covid-19 Ad26, Single Dose (TransferGo/J&J) 01/04/2021,01/04/2021 Pneumococcal Conjugate Vacc, 13 Valent (Prevnar) [...] Telephone Encounter - Zayda Nice, MIGUEL - 12/11/2023 12:14 PM EST Left message [...] medication and has questions - please advise [phone] * Addendum Note - Linda Jett RPh [...] JAGJIT Clinical Pharmacist Centralized Clinical Pharmacy Services ([facility]) [facility] 11/30/23 11:08 AM [phone] * Addendum Note - Joanna Robles PA-C [...] JAGJIT Clinical Pharmacist Centralized Clinical Pharmacy Services ([facility]) [facility] 11/30/23 10:05 AM [phone] * Telephone Encounter - Delon Alan CPhT - 11/30/2023 9:32 AM EST Images from the original note were not included. Checked status of prior authorization for Benztropine through [facility]. Routed high priority to refill call center pharmacist pool due to denial. Denial reason: . Thank you, Uri Alan ([facility]) Weeder Thinner III Centralized Clincal Pharmacy Services ([facility]) (formerly Telepharmacy) 11/30/2023, 9:32 AM * Telephone Encounter - Nikki White CPhT - 11/29/2023 1:29 PM EST pt calling to check on status of PA. Thank you, Nikki White CPhT II Weeder Thinner [facility] Clinical Pharmacy Services ([facility]) (Formerly Telepharmacy) 11/29/2023, 1:29 PM * Telephone Encounter - Linda Jett [facility] - 11/29/2023 10:00 AM EST Submitted information in previous note via CMM (Fair: [id number]).. Awaiting payer response. We will follow-up with insurance starting 11/30. Per [facility] request, if no decision is received from insurance by 12/05, we will route back to the [facility] after clarifying with the pharmacy that the claim is still not processing. Thank you, Linda Jett, PharmD, JAGJIT Clinical Pharmacist [facility] Clinical Pharmacy Services ([facility]) (formerly Telepharmacy) 11/29/23 10:00 AM [phone] * Telephone Encounter - Ronni Raymond [facility] - 11/28/2023 4:33 PM EST Please [...] is denied, please also route back to [facility] pool. Thanks, Ronni Raymond PharmD Clinical Pharmacist Centralized Clinical Pharmacy Services ([facility]) [facility] [phone] 11/28/2023, 4:33 PM * Telephone Encounter - Dali Knutson CPhT - 11/28/2023 4:10 PM EST Images from the original note were not included. This is a new PA request. Upon review of this prior authorization request, I verified this request is appropriate. This is prescribed by a department for which [facility] is authorized to review prior [...] note, there is nothing currently pending in [facility] for this request. Please advise how to proceed. Thank you, Dali Knutson CPhT Healthcare Manager Automation Technologist Centralized Clinical Pharmacy Services ([facility] 11/28/2023,4:10 PM * Telephone Encounter - Padmini [...] follows: Patient name: Jamari Chavira ID number: [id number] BIN number: [id number] PCN number: [id number] Group number: [id number] Subscriber name: Jamari Chavira Primary or Secondary Insurance:Primary Medication: Benztropine Mesylate 0.5 MG Oral Tablet (Cogentin) Reason for Request: needs pa Pharmacy and phone number: [id number] [address] [place] Rx plan and phone number: Is this a new medication for the patient? Yes What alternative medications does the pharmacy have in stock?: n/a Padmini Hernandez Healthcare Manager Centralized Clinical Pharmacy Services ([facility]) 11/27/2023,4:02 PM documented in this encounter Plan of Treatment Upcoming Encounters Date Type Department Care Team (Late st Contact Info) Description 12/12/2023 1:30 PM EST Office Visit Orthopaedics [facility] [address] [place] [address] Dago Nicholas PA-C [address] [place] [address] 02/06/2024 12:20 PM EDT Office Visit Family Practice [facility] [address] [facility] [address] Jamari Guidry III, MD 200 [place] [address] Health Maintenance Due Date Last Done Comments [...] disorder documented in this encounter Care Teams Stock Broker Supervisor Relationship Specialty Start Date End Date Jamari Guidry III, MD [address] [place] [address] PCP - General 03/11/01 documented as of this encounter
--- OUTSIDE RECORDS SUMMARY | 2024-01-08 05:25 | External Medical Summary | Summary of Care ---
Author Name Unknown Organization [facility] Address [address] [facility] [place] [address] Phone [phone] Care Team Providers Care Project Manager Process Development Name Role Phone Brea HUNT MD, Jamari Rico Primary Care Provider [phone] Reason for Visit * Reason Onset Date Comments Medication Pre-auth 11/27/2023 BENZTROPINE Encounter Details Date Type Department Care Team (Late st Contact Info) Description 11/27/2023 Telephone Family Practice [facility] [address] [facility] [place] [address] Joanna Robles PA-C [address] [facility] [place] [address] Medication Pre-auth (BENZTROPINE) Allergies No known active allergiesdocumented as of this encounter (statuses as of 12/05/2023) Medications Medication Sig Dispensed Refills Start Date End Date Status MULTIVITAMIN/ANDROID PROGRAMMER [place] FORMULA TABS OR One tab by [...] mRNA, LNP-s, No Pre serve, 2-Dose Series (DIIME) 09/19/2021 COVID-19, LNP-s, No Preserve , Gage-sucrose, Ages 12+ (Pfizer) 02/02/2022 COVID-19, MRNA-LNP, 23-24, P F, 30 MCG/0.3 mL, 12 YRS AND ABOVE, IM (Smartaxi-Comirnaty) 07/19/2023 Covid-19 Ad26, Single Dose (Message Bus/J&J) 01/04/2021,01/04/2021 Pneumococcal Conjugate Vacc, 13 Valent (Prevnar) [...] encounter Miscellaneous Notes * Telephone Encounter - Viviana Alvarado LPN [...] medication and has questions - please advise [phone] * Addendum Note - Linda Jett RPh - 11/30/2023 11:09 AM ESTAddended by: LINDA JETT on: 11/30/2023 11:09 AM Modules accepted: Orders * Telephone Encounter - Linda Jett RPh - 11/30/2023 11:07 AM EST Spoke with patient, reviewed PA denial and new medication. Reviewed dosing. Pt to contact in with any adverse effects or lack of response. Thank you, Linda Jett, KellyD, JAGJIT Clinical Pharmacist Centralized Clinical Pharmacy Services ([facility]PS) (formerly Telepharmacy) 11/30/23 11:08 AM [phone] * Addendum Note - Joanna Robles PA-C - 11/30/2023 10:34 AM ESTAddended by: JOANNA ROBLES on: 11/30/2023 10:34 AM Modules accepted: Orders * Telephone Encounter - Joanna Robles PA-C - 11/30/2023 10:33 AM EST Amantadine sent in. Taper instructions- please note. * Telephone Encounter - Linda Jett [facility] - 11/30/2023 10:04 AM EST Insurance denied Benztropine. Amantadine is step therapy. Please advise if patient can be started on Amantadine or if patient has contraindication. Thank you, Kelly ClintonD, JAGJIT Clinical Pharmacist Centralized Clinical Pharmacy Services ([facility]) (formerly Telepharmacy) 11/30/23 10:05 AM [phone] * Telephone Encounter - Delon Alan CPhT - 11/30/2023 9:32 AM EST Images from the original note were not included. Checked status of prior authorization for Benztropine through [facility]. Routed high priority to refill call center pharmacist pool due to denial. Denial reason: . Thank you, rUi Alan ([facility]) Band Salvager III Centralized Clincal Pharmacy Services ([facility]PS) (formerly Telepharmacy) 11/30/2023, 9:32 AM * Telephone Encounter - Nikki White CPhT - 11/29/2023 1:29 PM EST pt calling to check on status of PA. Thank you, Nikki White CPhT II Band Salvager Centralized Clinical Pharmacy Services ([facility]) (Formerly Telepharmacy) 11/29/2023, 1:29 PM * Telephone Encounter - Lidna Jett [facility] - 11/29/2023 10:00 AM EST Submitted information in previous note via [facility] (Fair: [id number]).. Awaiting payer response. We will follow-up with insurance starting 11/30. Per [facility] request, if no decision is received from insurance by 12/05, we will route back to the [facility] after clarifying with the pharmacy that the claim is still not processing. Thank you, Linda Jett PharmD, JAGJIT Clinical Pharmacist Centralized Clinical Pharmacy Services ([facility]) (formerly [employer]) 11/29/23 10:00 AM [phone] * Telephone Encounter - Ronni Raymond [facility] - 11/28/2023 4:33 PM EST Please [...] upon this and route back to the [facility] pool if no decision is made by the insurance by 12/05, after clarifying with the pharmacy that the claim is still not processing. If PA is denied, please also route back to [facility] pool. Thanks, Ronni Raymond PharmD Clinical Pharmacist Centralized Clinical Pharmacy Services ([facility]) (formerly [employer]) [phone] 11/28/2023, 4:33 PM * Telephone Encounter - Dali Knutson [facility] - 11/28/2023 4:10 PM EST Images from the original note were not included. This is a new PA request. Upon review of this prior authorization request, I verified this request is appropriate. This is prescribed by a department for which [facility] is authorized to review prior authorizations This [...] note, there is nothing currently pending in [employer] for this request. Please advise how to proceed. Thank you, Dali Knutson [facility] [employer] Probate Paralegal Centralized Clinical Pharmacy Services ([facility]) (Formerly Telepharmacy) [...] follows: Patient name: Jamari Chavira ID number: [id number] BIN number: [id number] PCN number: [id number] Group number: [id number] Subscriber name: Jamari Chavira Primary or Secondary Insurance:Primary Medication: Benztropine Mesylate 0.5 MG Oral Tablet (Cogentin) Reason for Request: needs pa Pharmacy and phone number: [facility] #[id number]- [place] Rx plan and phone number: Is this a new medication for the patient? Yes What alternative medications does the pharmacy have in stock?: n/a Padmini Hernandez [employer] Centralized Clinical Pharmacy Services ([facility]) 11/27/2023,4:02 PM documented in this encounter Plan of Treatment Upcoming Encounters Date Type Department Care Team (Late st Contact Info) Description 12/12/2023 1:30 PM EST Office Visit Orthopaedics [facility] [address] [place] [address] Dago Nicholas PA-C [address] [place] [address] 02/06/2024 12:20 PM EDT Office Visit Family Practice [facility] [address] [facility] [place] [address] Jamari Guidry III, MD [address] [facility] [place] [address] Health Maintenance Due Date Last Done Comments [...] disorder documented in this encounter Care Teams Project Manager Process Development Relationship Specialty Start Date End Date Jamari Guidry III, MD [address] [place] [address] PCP - General 03/11/01 documented as of this encounter
--- OUTSIDE RECORDS SUMMARY | 2024-01-08 05:26 | External Medical Summary | Summary of Care ---
Author Name Unknown Organization [facility] Address [address] [facility] [place] [facility] [place] [address] Phone [phone] Care Team Providers Care Book Packer Name Role Phone Brea HUNT MD, Jamari Rico Primary Care Provider [phone] Reason for Visit * Reason Onset Date Comments Medication Pre-auth 11/27/2023 BENZTROPINE Encounter Details Date Type Department Care Team (Late st Contact Info) Description 11/27/2023 Telephone [facility] [place] [facility] [address] [place] [address] Joanna Mosley PA-C [address] [place] [address] Medication Pre-auth (BENZTROPINE) Allergies No known active allergiesdocumented as of this encounter (statuses as of 11/30/2023) Medications Medication Sig Dispensed Refills Start Date [...] BY MOUTH 90 Tablet 2 11/19/2023 Active Benztropine Mesylate 0.5 MG Oral Tablet (Cogentin)Indication s:Restless arm,Schizophrenia, chronic condition (HCC),Extrapyramidal and movement disorder Take 1 Tablet by mouth in the morning and 1 Tablet before bedtime. For the first week, take one pill at bedtime. If tolerating OK, then increase to the twice daily dosing.. 60 Tablet 1 11/21/2023 Active documented as of this encounter (statuses as of 11/30/2023) Active Problems Problem Noted Date Diagnosed Date [...] as of this encounter (statuses as of 11/30/2023) Resolved Problems Problem Noted Date Diagnosed Date Resolved Date Dyslipidemia 10/04/2018 04/02/2019 Prediabetes 12/11/2017 08/10/2022 Overview: Per Prediabetes protocol #1 Retention of urine 11/21/2011 8 Overview: ICD-10 update of inactive term documented as of this encounter (statuses as of 11/30/2023) Immunizations Name Administration Dates Next Due COVID-19 mRNA, LNP-s, No Pre serve, 2-Dose Series (QM Power) 09/19/2021 COVID-19, LNP-s, No Preserve , Gage-sucrose, Ages 12+ (QM Power) 02/02/2022 COVID-19, MRNA-LNP, 23-24, P F, 30 MCG/0.3 mL, 12 YRS AND ABOVE, IM (Dynamic Defense Materials-ComirnatPreEmptive Solutions) 07/19/2023 Covid-19 Ad26, Single Dose (Storone/J&J) 01/04/2021,01/04/2021 Pneumococcal Conjugate Vacc, 13 Valent (Prevnar) [...] encounter Miscellaneous Notes * Telephone Encounter - Delon Alan CPhT - 11/30/2023 9:32 AM EST Images from the original note were not included. Checked status of prior authorization for Benztropine through [facility]. Routed high priority to refill call center pharmacist pool due to denial. Denial reason: . Thank you, Uri Alan ([facility]) Alarm Signaler III [facility] Pharmacy [facility] ([facility]) (formerly Telepharmacy) 11/30/2023, 9:32 AM * Telephone Encounter - Nikki White CPhT - 11/29/2023 1:29 PM EST pt calling to check on status of PA. Thank you, Nikki White CPhT II Alarm Signaler [facility] ([facility]) (Formerly Telepharmacy) 11/29/2023, 1:29 PM * Telephone Encounter - Aixa Jett, [facility] - 11/29/2023 10:00 AM EST Submitted information in previous note via [facility]MM (Fair: [id number]).. Awaiting payer response. We will follow-up with insurance starting 11/30. Per [facility] request, if no decision is received from insurance by 12/05, we will route back to the [facility] after clarifying with the pharmacy that the claim is still not processing. Thank you, Aixa Jett, PharmD, JAGJIT Clinical Pharmacist Centralized Clinical Pharmacy Services ([facility]) (formerly Telepharmacy) 11/29/23 10:00 AM [phone] * Telephone Encounter - Ronni Raymond, [facility] - 11/28/2023 4:33 PM EST [...] upon this and route back to the [facility] pool if no decision is made by the insurance by 12/05, after clarifying with the pharmacy that the claim is still not processing. If PA is denied, please also route back to [facility]. Thanks, Ronni Raymond PharmD Clinical Pharmacist Centralized Clinical Pharmacy Services ([facility]) (formerly [employer]) [phone] 11/28/2023, 4:33 PM * Telephone Encounter - Dali Knutson CPhT - 11/28/2023 4:10 PM EST Images from the original note were not included. This is a new PA request. Upon review of this prior authorization request, I verified this request is appropriate. This is prescribed by a department for which [facility] is authorized to review prior authorizations [...] note, there is nothing currently pending in [facility] for this request. Please advise how to proceed. Thank you, Dali Knutson CPhT Rescue Boat Operator Pet Ambassador Centralized Clinical Pharmacy Services ([facility]) (Formerly Telepharmacy) [...] follows: Patient name: Jamari Chavira ID number: [id number] BIN number: [id number] PCN number: [id number] Group number: [id number] Subscriber name: Jamari Chavira Primary or Secondary Insurance:Primary Medication: Benztropine Mesylate 0.5 MG Oral Tablet (Cogentin) Reason for Request: geri pa Pharmacy and phone [id number] [address] [facility] [address] [place] Rx plan and phone number: Is this a new medication for the patient? Yes What alternative medications does the pharmacy have in stock?: n/a Padmini Hernandez Rescue Boat Operator [facility] ([facility]) 11/27/2023,4:02 PM documented in this encounter Plan of Treatment Upcoming Encounters Date Type Department Care Team (Late st Contact Info) Description 12/12/2023 1:30 PM EST Office Visit Orthopaedics [facility] [address] [place] [address] Dago Nicholas PA-C [address] [place] [address] 02/06/2024 12:20 PM EDT Office Visit Family Practice [facility] [address] [place] [address] Jamari Guidry III, MD [address] [place] [address] Health Maintenance Due Date Last Done Comments [...] disorder documented in this encounter Care Teams Book Packer Relationship Specialty Start Date End Date Jamari Guidry III, MD 200 [place] [address] PCP - General 03/11/01 documented as of this encounter
--- OUTSIDE RECORDS SUMMARY | 2024-01-08 05:26 | External Medical Summary | Summary of Care ---
Author Name Unknown Organization [facility] Address [address] [place] [address] Phone [phone] Care Team Providers Care Therapeutic Recreation Specialist Name Role Phone Brea HUNT MD, Allan Rico Primary Care Provider [phone] Reason for Visit * Reason Comments eRx-Medication Refill Encounter Details Date Type Department Care Team (Late st Contact Info) Description 11/18/[address] [facility] [address] [facility] [place] [address] Allan Navarro III, MD 200 [place] [address] HTN, goal below 140/90 Allergies No known active allergiesdocumented as of this encounter (statuses as of 11/19/2023) Medications Medication Sig Dispensed Refills Start Date End Date Status MULTIVITAMIN/BUTTER GRADER AL FORMULA TABS OR One tab by [...] BY MOUTH 90 Tablet 2 11/19/2023 Active hydroCHLOROthiazid e 25 MG Oral Tablet (Hydrodiuril)Indic ations:HTN, goal below 140/90 TAKE 1 TABLET BY MOUTH EVERY DAY BY MOUTH 90 Tablet 1 05/23/2023 4 Discontinued documented as of this encounter (statuses as of 11/19/2023) Active Problems Problem Noted Date Diagnosed Date Prostate cancer 08/19/2021 PAF (paroxysmal atrial fibrillation) 09/01/2020 Dyslipidemia, goal LDL below 100 02/07/2019 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 SCHIZOPHRENIA NOS-CHR 04/03/2001 HTN, goal below 140/90 04/03/2001 documented as of this encounter (statuses as of 11/19/2023) Resolved Problems Problem Noted Date Diagnosed Date Resolved Date Dyslipidemia 10/04/2018 04/02/2019 Prediabetes 12/11/2017 08/10/2022 Overview: Per Prediabetes protocol #1 Retention of urine 11/21/2011 8 Overview: ICD-10 update of inactive term documented as of this encounter (statuses as of 11/19/2023) Immunizations Name Administration Dates Next Due COVID-19 mRNA, LNP-s, No Pre serve, 2-Dose Series (Feebbo) 09/19/2021 COVID-19, LNP-s, No Preserve , Gage-sucrose, Ages 12+ (Feebbo) 02/02/2022 COVID-19, MRNA-LNP, 23-24, P F, 30 MCG/0.3 mL, 12 YRS AND ABOVE, IM ([employer] Management Services) 07/19/2023 Covid-19 Ad26, Single Dose (esolidar/J&Sales Layer) 01/04/2021,01/04/2021 Pneumococcal Conjugate Vacc, 13 Valent (Prevnar) 10/18/2015 Pneumococcal Polysaccharide PPV23 (Pneumovax) 03/17/2009 Season Influenza, Quad, PF, Adjuvanted, 65+ Yrs, IM (FLUAD) 07/10/2023 Seasonal Influenza Virus Vac cine, Unspecified Formulation 06/30/2022,07/19/2021,09/04/2018,07/19,07/27/2017,08/24/2016,07/16/2014 ,08/18/2013,08/22/2012,08/31/2011,08/29,08/31/2009,09/03/2008, 6 Seasonal Influenza, PF, 6 M & above, IM , (FluLaval or Fluzone) 09/04/2018,07/27/2017 Seasonal Influenza, Quadriva lent Hd, 65+ Yrs [...] encounter Miscellaneous Notes * Telephone Encounter - Moises Tran RPh - 11/19/2023 2:09 PM ESTSigned Prescriptions: Disp Refills hydroCHLOROthiazide 25 MG Oral Tablet (Hyd*90 Tab*2 Sig: TAKE 1 TABLET BY MOUTH EVERY DAY BY MOUTHAuthorizing Provider: ALLAN NAVARRO III User: MOISES TRAN documented in this encounter Plan of Treatment Upcoming Encounters Date Type Department Care Team (Late st Contact Info) Description 11/21/2023 2:00 PM EST Office Visit Family Practice [facility] [place] [address] [place] [address] Joanna Mosley PA-C [address] [place] [address] 12/12/2023 1:30 PM EST Office Visit Orthopaedics [facility] [address] [place] [address] Dago Nicholas PA-C [address] [place] [address] 02/06/2024 12:20 PM EDT Office Visit Family Practice [facility] [address] [facility] [place] [address] Allan Navarro III, MD [address] [facility] [place] [address] Health Maintenance Due Date Last Done Comments [...] as of this encounter Visit Diagnoses Diagnosis HTN, goal below 140/90 Unspecified essential hypertension documented in this encounter Care Teams Therapeutic Recreation Specialist Relationship Specialty Start Date End Date Allan Navarro III, MD [address] [facility] [place] [address] PCP - General 03/11/01 documented as of this encounter
--- OUTSIDE RECORDS SUMMARY | 2024-01-08 05:26 | External Medical Summary | Summary of Care ---
Author Name Unknown Organization [facility] Address [address] [facility] [place] [address] Phone [phone] Care Team Providers Care Manpower Development Specialist Manager Name Role Phone Brea HUNT MD, Jamari Rico Primary Care Provider [phone] Reason for Visit * Reason Onset Date Comments Medication Pre-auth 11/27/2023 BENZTROPINE Encounter Details Date Type Department Care Team (Late st Contact Info) Description 11/27/2023 Telephone [facility] Practice [facility] [address] [facility] [place] [address] Joanna Robles PA-C [address] [facility] [place] [address] Medication Pre-auth (BENZTROPINE) Allergies No known active allergiesdocumented as of this encounter (statuses as of 11/30/2023) Medications Medication Sig Dispensed Refills Start Date End Date Status MULTIVITAMIN/CREW LEAD AL FORMULA TABS OR One tab by [...] mRNA, LNP-s, No Pre serve, 2-Dose Series (Sarata) 09/19/2021 COVID-19, LNP-s, No Preserve , Gage-sucrose, Ages 12+ (Pfizer) 02/02/2022 COVID-19, MRNA-LNP, 23-24, P F, 30 MCG/0.3 mL, 12 YRS AND ABOVE, IM (i3 membrane-Comirnaty) 07/19/2023 Covid-19 Ad26, Single Dose (Organic To Go/J&J) 01/04/2021,01/04/2021 Pneumococcal Conjugate Vacc, 13 Valent (Prevnar) [...] as of this encounter Miscellaneous Notes * Addendum Note - Linda Jett, [facility] - 11/30/2023 11:09 AM ESTAddended by: LINDA JETT on: 11/30/2023 11:09 AM Modules accepted: Orders * Telephone Encounter - Linda Jett RPh - 11/30/2023 11:07 AM EST Spoke with patient, reviewed PA denial and new medication. Reviewed dosing. Pt to contact in with any adverse effects or lack of response. Thank you, Linda Jett PharmD, MBA Clinical Pharmacist Centralized Clinical Pharmacy Services ([facility]) (formerly [employer]) 11/30/23 11:08 AM [phone] * Addendum Note - Joanna Robles PA-C [...] has contraindication. Thank you, Linda Jett PharmD, MBA Clinical Pharmacist Centralized Clinical Pharmacy Services ([facility]) (formerly [employer]) 11/30/23 10:05 AM [phone] * Telephone Encounter - Delon Alan CPhT - 11/30/2023 9:32 AM EST Images from the original note were not included. Checked status of prior authorization for Benztropine through CMM. Routed high priority to refill call center pharmacist pool due to denial. Denial reason: . Thank you, Uri Alan ([facility]) Dip Painter III Centralized Clin[facility] Pharmacy Services ([facility]) (formerly Telepharmacy) 11/30/2023, 9:32 AM * Telephone Encounter - Nikki White CPhT - 11/29/2023 1:29 PM EST pt calling to check on status of PA. Thank you, Nikki White CPhT II Dip Painter Centralized Clinical Pharmacy Services ([facility]) (Formerly Telepharmacy) 11/29/2023, 1:29 PM * Telephone Encounter - Linda Jett [facility] - 11/29/2023 10:00 AM EST Submitted information in previous note via [facility] (Fair: [id number]).. Awaiting payer response. We will follow-up with insurance starting 11/30. Per [facility] request, if no decision is received from insurance by 12/05, we will route back to the [facility] after clarifying with the pharmacy that the claim is still not processing. Thank you, Linda Jett PharmD, JAGJIT Clinical Pharmacist Centralized Clinical Pharmacy Services ([facility]) (formerly Telepharmacy) 11/29/23 10:00 AM [phone] * Telephone Encounter - Ronni Raymond [facility] - 11/28/2023 4:33 PM EST Please [...] upon this and route back to the [facility] pool if no decision is made by the insurance by 12/05, after clarifying with the pharmacy that the claim is still not processing. If PA is denied, please also route back to [facility] pool. Thanks, Ronni Raymond PharmD Clinical Pharmacist Centralized Clinical Pharmacy Services ([facility]) (formerly [employer]) [phone] 11/28/2023, 4:33 PM * Telephone Encounter - Dali Knutson CPhT - 11/28/2023 4:10 PM EST Images from the original note were not included. This is a new PA request. Upon review of this prior authorization request, I verified this request is appropriate. This is prescribed by a department for which [facility] is authorized to review prior authorizations [...] note, there is nothing currently pending in [facility] for this request. Please advise how to proceed. Thank you, Dali Knutson CPhT Maintenance Supervisor 2Nd Shift Handbag Frames Inspector Centralized Clinical Pharmacy Services ([facility]) (Formerly Telepharmacy) [...] follows: Patient name: Jamari Chavira ID number: [id number] BIN number: [id number] PCN number: [id number] Group number: [id number] Subscriber name: Jamari Chavira Primary or Secondary Insurance:Primary Medication: Benztropine Mesylate 0.5 MG Oral Tablet (Cogentin) Reason for Request: needs pa Pharmacy and phone number: [id number] [address] [place] Rx plan and phone number: Is this a new medication for the patient? Yes What alternative medications does the pharmacy have in stock?: n/a Padmini Hernandez Maintenance Supervisor 2Nd Shift [facility] Pharmacy Services ([facility]) 11/27/2023,4:02 PM documented in this encounter Plan of Treatment Upcoming Encounters Date Type Department Care Team (Late st Contact Info) Description 12/12/2023 1:30 PM EST Office Visit Orthopaedics [facility] [address] [address] Dago Nicholas PA-C [address] [place] [address] 02/06/2024 12:20 PM EDT Office Visit Family Practice [facility] [place] [address] [facility] [place] [address] Jamari Guidry III, MD [address] [facility] [place] [address] Health Maintenance Due Date Last Done Comments [...] disorder documented in this encounter Care Teams Manpower Development Specialist Manager Relationship Specialty Start Date End Date Jamari Guidry III, MD [address] [facility] [place] [address] PCP - General 03/11/01 documented as of this encounter
--- OUTSIDE RECORDS SUMMARY | 2024-01-08 05:26 | External Medical Summary | Summary of Care ---
Author Name Unknown Organization [facility] Address [address] [facility] [place] [address] Phone [phone] Care Team Providers Care Non Acoustic Operator Name Role Phone Brea HUNT MD, Jamari Rico Primary Care Provider [phone] Reason for Visit * Reason Onset Date Comments Medication Pre-auth 11/27/2023 BENZTROPINE Encounter Details Date Type Department Care Team (Late st Contact Info) Description 11/27/2023 [facility] [address] [place] [address] Joanna Robles PA-C [address] [place] [address] Medication Pre-auth (BENZTROPINE) Allergies No known active [...] daily dosing.. 60 Tablet 1 11/21/2023 Active Amantadine HCl 100 MG Oral TabletIndications:Re [...] mRNA, LNP-s, No Pre serve, 2-Dose Series (EveryScape) 09/19/2021 COVID-19, LNP-s, No Preserve , Gage-sucrose, Ages 12+ (EveryScape) 02/02/2022 COVID-19, MRNA-LNP, 23-24, P F, 30 MCG/0.3 mL, 12 YRS AND ABOVE, IM (Biztag-Comirnat) 07/19/2023 Covid-19 Ad26, Single Dose (Jose/J&J) 01/04/2021,01/04/2021 [...] encounter Miscellaneous Notes * Addendum Note - Joanna Robles PA-C - 11/30/2023 10:34 AM ESTAddended by: JOANNA ROBLES on: 11/30/2023 10:34 AM Modules accepted: Orders * Telephone Encounter - Joanna Robles PA-C - 11/30/2023 10:33 AM EST Amantadine sent in. Taper instructions- please note. * Telephone Encounter - Aixa Jett [facility] - 11/30/2023 10:04 AM EST Insurance denied Benztropine. Amantadine is step therapy. Please advise if patient can be started on Amantadine or if patient has contraindication. Thank you, Aixa Jett PharmD, JAGJIT Clinical Pharmacist Centralized Clinical Pharmacy Services ([facility]) [facility]) 11/30/23 10:05 AM [phone] * Telephone Encounter - Delon Alan CPhT - 11/30/2023 9:32 AM EST Images from the original note were not included. Checked status of prior authorization for Benztropine through [facility]. Routed high priority to refill call center pharmacist pool due to denial. Denial reason: . Thank you, Uri Alan ([facility]) Snailer III [facility] Clin[facility] Pharmacy Services ([facility]) [facility]) 11/30/2023, 9:32 AM * Telephone Encounter - Nikki White CPhT - 11/29/2023 1:29 PM EST pt calling to check on status of PA. Thank you, Nikki White CPhT II Snailer Centralized Clinical Pharmacy Services ([facility]) (Formerly Telepharmacy) 11/29/2023, 1:29 PM * Telephone Encounter - Aixa Jett, [facility] - 11/29/2023 10:00 AM EST Submitted information in previous note via [facility] (Fair: [id number]).. Awaiting payer response. We will follow-up with insurance starting 11/30. Per [facility] request, if no decision is received from insurance by 12/05, we will route back to the [facility] after clarifying with the pharmacy that the claim is still not processing. Thank you, Aixa Jett PharmD, JAGJIT Clinical Pharmacist Central[facility] Clinical Pharmacy Services ([facility]) (formerly [facility]) 11/29/23 10:00 AM [phone] * Telephone Encounter - Ronni Raymond, [facility] - 11/28/2023 4:33 PM EST Please submit [...] upon this and route back to the [facility] pool if no decision is made by the insurance by 12/05, after clarifying with the pharmacy that the claim is still not processing. If PA is denied, please also route back to [facility] pool. Thanks, Ronni Raymond PharmD Clinical Pharmacist Central[facility] Clinical Pharmacy Services ([facility]) (formerly [facility]) [phone] 11/28/2023, 4:33 PM * Telephone Encounter - Dali Knutson [facility] - 11/28/2023 4:10 PM EST Images from [...] to proceed. Thank you, Dali Knutson CPhT Pillowcase [place] Designer Centralized Clinical Pharmacy Services ([facility]) (Formerly Telepharmacy) [...] follows: Patient name: Jamari Chavira ID number: [id number] BIN number: [id number] PCN number: [id number] Group number: [id number] Subscriber name: Jamari Chavira Primary or Secondary Insurance:Primary Medication: Benztropine Mesylate 0.5 MG Oral Tablet (Cogentin) Reason for Request: needs pa Pharmacy and phone number: [id number]- [place] Rx plan and phone number: Is this a new medication for the patient? Yes What alternative medications does the pharmacy have in stock?: n/a Padmini Hernandez Pillowcase Turner [facility] Pharmacy Services ([facility]) 11/27/2023,4:02 PM documented in this encounter Plan of Treatment Upcoming Encounters Date Type Department Care Team (Late st Contact Info) Description 12/12/2023 1:30 PM EST Office Visit Orthopaedics [facility] [address] [place] [address] Dago Nicholas PA-C [address] [place] [address] 02/06/2024 12:20 PM EDT Office Visit Family Practice [facility] [address] [facility] [place] [address] Jamari Guidry III, MD [address] [facility] [place] [address] Health Maintenance Due Date Last Done Comments [...] disorder documented in this encounter Care Teams Non Acoustic Operator Relationship Specialty Start Date End Date Jamari Guidry III, MD [address] [place] [address] PCP - General 03/11/01 documented as of this encounter
--- OUTSIDE RECORDS SUMMARY | 2024-01-08 05:26 | External Medical Summary | Summary of Care ---
Author Name Unknown Organization [facility] Address [address] [place] [address] Phone [phone] Care Team Providers Care Tierce Filler Name Role Phone Brea HUNT MD, Jamari Rico Primary Care Provider [phone] Reason for Visit * Reason Comments Acute Restless arms Encounter Details Date Type Department Care Team (Late st Contact Info) Description 11/21/2023 2:00 PM EST Office Visit Family Practice [facility] [place] [address] [facility] [place] [address] Joanna Mosley PA-C [address] [facility] [place] [address] Restless arm*; Schizophrenia, chronic condition (HCC); Extrapyramidal and movement disorder Allergies No known active allergiesdocumented as of this encounter (statuses as of 11/21/2023) Medications Medication Sig Dispensed Refills Start Date [...] as of this encounter (statuses as of 11/21/2023) Active Problems Problem Noted Date Diagnosed Date [...] as of this encounter (statuses as of 11/21/2023) Resolved Problems Problem Noted Date Diagnosed Date Resolved Date Dyslipidemia 10/04/2018 04/02/2019 Prediabetes 12/11/2017 08/10/2022 Overview: Per Prediabetes protocol #1 Retention of urine 11/21/2011 8 Overview: ICD-10 update of inactive term documented as of this encounter (statuses as of 11/21/2023) Immunizations Name Administration Dates Next Due COVID-19 mRNA, LNP-s, No Pre serve, 2-Dose Series ([place]) 09/19/2021 COVID-19, LNP-s, No Preserve , Gage-sucrose, Ages 12+ ([place]) 02/02/2022 COVID-19, MRNA-LNP, 23-24, P F, 30 MCG/0.3 mL, 12 YRS AND ABOVE, IM (PFIZER-Comirnaty) 07/19/2023 Covid-19 Ad26, Single Dose (Ub[employer]/J&J) 01/04/2021,01/04/2021 Pneumococcal Conjugate Vacc, 13 Valent (Prevnar) [...] on file documented as of this encounter Last Filed Vital Signs Vital Sign Reading Time Taken Comments Blood Pressure 114/78 11/21/2023 1:53 PM EST Pulse 81 11/21/2023 1:53 PM EST Temperature 36.5 C (97.7 F) 11/21/2023 1:53 PM ES T Respiratory Rate 16 11/21/2023 1:53 PM EST Oxygen Saturation 95% 11/21/2023 1:53 PM EST Inhaled Oxygen Concentration - - Weight 90.7 kg (200 lb) 11/21/2023 1:53 PM EST Height 185.4 cm (6' 1") 11/21/2023 1:53 PM EST Body Mass Index 26.39 11/21/2023 1:53 PM EST documented in this encounter Progress Notes * Joanna Mosley PA-C - 11/21/2023 3:00 PM EST Subjective Jamari Chavira is a 78 year old male that presents for Acute (Restless arms/) 78 y/o male presents c/o worsening hand tremors. He states that he was talking to his nurse sister,and she thinks it might be from his antipsychotic for his schizophrenia. He has been on this medication for years, never caused this issue before. He was on haldol previously and this did happen, butit was controlled by Benztropine. He would like to try this medication again if possible. Has noticed tremor is becoming worse with writing and activity, not present at rest. Objective BP 114/78 | Pulse 81 | Temp 36.5 C (97.7 F) (Tympanic) | Resp 16 | Ht 1.854 m (6' 1") | Wt 90.7kg (200 lb) | SpO2 95% | BMI 26.39 kg/m | BSA 2.16 m Body mass index is 26.39 kg/m. BP Readings from Last 3 Encounters: 11/21/23 114/78 08/06/23 112/74 07/05/23 132/85 Wt Readings from Last 3 Encounters: 11/21/23 90.7 kg (200 lb) 08/06/23 88.8 kg (195 lb 12.8 oz) 07/05/23 88.9 kg (196 lb) Physical Exam Vitals and nursing note reviewed. Constitutional: General: He is not in acute distress. Appearance: Normal appearance. HENT: Head: Normocephalic and atraumatic. Eyes: General: No scleral icterus. Extraocular Movements: Extraocular movements intact. Conjunctiva/sclera: Conjunctivae normal. Pupils: Pupils are equal, round, and reactive to light. Cardiovascular: Rate and Rhythm: Normal rate. Pulmonary: Effort: Pulmonary effort is normal. Skin: General: Skin is warm and dry. Findings: No rash. Neurological: General: No focal deficit present. Mental Status: He is alert and oriented to person, place, and time. Motor: No weakness. Comments: Slight increase in intention tremor noted. No oral movements noted. Psychiatric: Mood and Affect: Mood normal. Behavior: Behavior normal. Assessment and plan 1. Restless arm - Benztropine Mesylate 0.5 MG Oral Tablet (Cogentin); Take 1 Tablet by mouth in the morning and 1 Tablet before bedtime. For the first week, take one pill at bedtime. If tolerating OK, then increase to the twice daily dosing.. Dispense: 60 Tablet; Refill: 1 2. Schizophrenia, chronic condition (HCC) - Benztropine Mesylate 0.5 MG Oral Tablet (Cogentin); Take 1 Tablet by mouth in the morning and 1 Tablet before bedtime. For the first week, take one pill at bedtime. If tolerating OK, then increase to the twice daily dosing.. Dispense: 60 Tablet; Refill: 1 3. Extrapyramidal and movement disorder - Benztropine Mesylate 0.5 MG Oral Tablet (Cogentin); Take 1 Tablet by mouth in the morning and 1 Tablet before bedtime. For the first week, take one pill at bedtime. If tolerating OK, then increase to the twice daily dosing.. Dispense: 60 Tablet; Refill: 1 -OK to start trial of cogentin -tremor could be essential vs medication or combo of both -will continue to monitor and he will call in with an update -to ER with acute worsening symptoms- medication may cause urinary symptoms, will have to watch closely with his history Follow up Follow-up: Return if symptoms worsen or fail to improve. | Check-out note: As scheduled with Dr. Guidry Total time today including reviewing chart before the visit, pertinent labs, imaging reports, face to face time, and documentation time was 30 minutes. The above was discussed and understanding was expressed. Joanna Mosley PA-C documented in this encounter Nursing Notes * Thais Mena LPN - 11/21/2023 1:52 PM EST Patient presents today for worsening restless arm syndrome. He said that he is really having trouble with it when he is writing so he wanted to discuss it. documented in this encounter Plan of Treatment Upcoming Encounters Date Type Department Care Team (Late st Contact Info) Description 12/12/2023 1:30 PM EST Office Visit Orthopaedics [facility] [address] [place] [address] Dago Nicholas PA-C [address] [place] [address] 02/06/2024 12:20 PM EDT Office Visit Family Practice [facility] [address] [facility] [place] [address] Jamari Guidry III, MD [address] [facility] [place] [address] Health Maintenance Due Date Last Done Comments [...] of this encounter Visit Diagnoses Diagnosis Restless arm- Primary Schizophrenia, chronic condition (HCC) Residual type schizophrenic disorder, chronic condition Extrapyramidal and movement disorder Unspecified extrapyramidal disease and abnormal movement disorder documented in this encounter Care Teams Tierce Filler Relationship Specialty Start Date End Date Jamari Guidry III, MD [address] [place] [address] PCP - General 03/11/01 documented as of this encounter
--- OUTSIDE RECORDS SUMMARY | 2024-01-08 05:26 | External Medical Summary | Summary of Care ---
Author Name Unknown Organization [facility] Address [address] [facility] [place] [address] Phone [phone] Care Team Providers Care Afterschool Babysitter Name Role Phone Brea HUNT MD, Jamari Rico Primary Care Provider [phone] Reason for Visit * Reason Onset Date Comments Medication Pre-auth 11/27/2023 BENZTROPINE Encounter Details Date Type Department Care Team (Late st Contact Info) Description 11/27/2023 [facility]phone [facility] [address] [facility] [place] [address] Joanna Mosley PA-C [address] [facility] [place] [address] Medication Pre-auth (BENZTROPINE) Allergies No known active [...] mRNA, LNP-s, No Pre serve, 2-Dose Series ([employer]) 09/19/2021 COVID-19, LNP-s, No Preserve , Gage-sucrose, Ages 12+ ([employer]) 02/02/2022 COVID-19, MRNA-LNP, 23-24, P F, 30 MCG/0.3 mL, 12 YRS AND ABOVE, IM (Bubbleball-ComirnatAnesco) 07/19/2023 Covid-19 Ad26, Single Dose (Fitmo/J&J) 01/04/2021,01/04/2021 Pneumococcal Conjugate Vacc, 13 Valent (Prevnar) [...] encounter Miscellaneous Notes * Telephone Encounter - Aixa Jett RPh - 11/30/2023 10:04 AM EST Insurance denied Benztropine. Amantadine is step therapy. Please advise if patient can be started on Amantadine or if patient has contraindication. Thank you, Aixa Jett PharmD, JAGJIT Clinical Pharmacist [facility] ([facility]) (formerly [facility]) 11/30/23 10:05 AM [phone] * Telephone Encounter - Delon Alan CPhT - 11/30/2023 9:32 AM EST Images from the original note were not included. Checked status of prior authorization for Benztropine through CMM. Routed high priority to refill call center pharmacist pool due to denial. Denial reason: . Thank you, Uri Alan ([facility]) Drying And Winding Supervisor III [facility] ([facility]) ([facility]) 11/30/2023, 9:32 AM * Telephone Encounter - Nikki White CPhT - 11/29/2023 1:29 PM EST pt calling to check on status of PA. Thank you, Nikki White CPhT II Drying And Winding Supervisor [facility] ([facility]) ([facility]) 11/29/2023, 1:29 PM * Telephone Encounter - Aixa Jett [facility] - 11/29/2023 10:00 AM EST Submitted information in previous note via CM (Fair: [id number]).. Awaiting payer response. We will follow-up with insurance starting 11/30. Per [facility] request, if no decision is received from insurance by 12/05, we will route back to the [facility] after clarifying with the pharmacy that the claim is still not processing. Thank you, Kelly ClintonD, JAGJIT Clinical Pharmacist [facility] ([facility]) ([facility]) 11/29/23 10:00 AM [phone] * Telephone Encounter - Ronni Raymond [facility] - 11/28/2023 4:33 PM EST Please [...] this and route back to the [facility] pool if no decision is made by the insurance by 12/05, after clarifying with the pharmacy that the claim is still not processing. If PA is denied, please also route back to [facility]. Thanks, Ronni Raymond, PharmD Clinical Pharmacist [facility] ([facility]) (formerly [employer]) [phone] 11/28/2023, 4:33 PM * Telephone Encounter - Dali Knutson CPhT - 11/28/2023 4:10 PM EST Images from the original note were not included. This is a new PA request. Upon review of this prior authorization request, I verified this request is appropriate. This is prescribed by a department for which [facility] is authorized to review prior authorizations This [...] note, there is nothing currently pending in [facility] for this request. Please advise how to proceed. Thank you, Dali Knutson CPhT Kettle Coordinator Talent Acquisition Consultant [facility] ([facility]) (Formerly [facility]) 11/28/2023,4:10 PM * Telephone Encounter - Padmini [...] follows: Patient name: Jamari Chavira ID number: [id number] BIN number: [id number] PCN number: [id number] Group number: [id number] Subscriber name: Jamari Chavira Primary or Secondary Insurance:Primary Medication: Benztropine Mesylate 0.5 MG Oral Tablet (Cogentin) Reason for Request: needs pa Pharmacy and phone number: [id number] [address] [place] Rx plan and phone number: Is this a new medication for the patient? Yes What alternative medications does the pharmacy have in stock?: n/a Padmini Hernandez Kettle Coordinator [facility] ([facility]) 11/27/2023,4:02 PM documented in this encounter Plan of Treatment Upcoming Encounters Date Type Department Care Team (Late st Contact Info) Description 12/12/2023 1:30 PM EST Office Visit Orthopaedics [facility] [address] [place] [address] Dago Nicholas PA-C [address] [place] [address] 02/06/2024 12:20 PM EDT Office Visit Family Practice [facility] [place] [address] [place] [address] Jamari Guidry III, MD [address] [facility] [place] [address] Health Maintenance Due Date Last Done Comments [...] disorder documented in this encounter Care Teams Afterschool Babysitter Relationship Specialty Start Date End Date Jamari Guidry III, MD [address] [place] [address] PCP - General 03/11/01 documented as of this encounter
--- OUTSIDE RECORDS SUMMARY | 2024-01-08 05:26 | External Medical Summary | Summary of Care ---
Author Name Unknown Organization [facility] Address [address] [facility] [address] Phone [phone] Care Team Providers Care Personal Vehicle Advisor Name Role Phone Brea HUNT MD, Jamari Rico Primary Care Provider [phone] Encounter Details Date Type Department Care Team (Late st Contact Info) Description 11/27/2023 Telephone Family Practice [facility] [address] [facility] [place] [id number] Joanna [facility]C [facility] [address] Allergies No known active allergiesdocumented as of this encounter (statuses as of 11/29/2023) Medications Medication Sig Dispensed Refills Start Date [...] as of this encounter (statuses as of 11/29/2023) Active Problems Problem Noted Date Diagnosed Date [...] as of this encounter (statuses as of 11/29/2023) Resolved Problems Problem Noted Date Diagnosed Date Resolved Date Dyslipidemia 10/04/2018 04/02/2019 Prediabetes 12/11/2017 08/10/2022 Overview: Per Prediabetes protocol #1 Retention of urine 11/21/2011 8 Overview: ICD-10 update of inactive term documented as of this encounter (statuses as of 11/29/2023) Immunizations Name Administration Dates Next Due COVID-19 mRNA, LNP-s, No Pre serve, 2-Dose Series ([employer]) 09/19/2021 COVID-19, LNP-s, No Preserve , Gage-sucrose, Ages 12+ ([employer]) 02/02/2022 COVID-19, MRNA-LNP, 23-24, P F, 30 MCG/0.3 mL, 12 YRS AND ABOVE, IM ([employer]-Comirnaty) 07/19/2023 Covid-19 Ad26, Single Dose (Orthogem/J&J) 01/04/2021,01/04/2021 Pneumococcal Conjugate Vacc, 13 Valent (Prevnar) [...] encounter Miscellaneous Notes * Telephone Encounter - Nikki White CPhT - 11/29/2023 1:29 PM EST pt calling to check on status of PA. Thank you, Nikki White CPhT II Non Clinical Advisor [facility] ([facility]) (Formerly [facility]) 11/29/2023, 1:29 PM * Telephone Encounter - Aixa Jett [facility] - 11/29/2023 10:00 AM EST Submitted information in previous note via CMM (Fair: [id number]).. Awaiting payer response. We will follow-up with insurance starting 11/30. Per [facility] request, if no decision is received from insurance by 12/05, we will route back to the [facility] after clarifying with the pharmacy that the claim is still not processing. Thank you, Aixa Jett PharmD, JAGJIT Clinical Pharmacist [facility] ([facility]) (formerly Telepharmacy) 11/29/23 10:00 AM [phone] * Telephone Encounter - Ronni Raymond, [facility] - 11/28/2023 4:33 PM EST Please submit [...] upon this and route back to the [facility] pool if no decision is made by the insurance by 12/05, after clarifying with the pharmacy that the claim is still not processing. If PA is denied, please also route back to [facility] pool. Thanks, Ronni Raymond PharmD Clinical Pharmacist [facility] ([facility]) (formerly Telepharmacy) [phone] 11/28/2023, 4:33 PM * Telephone Encounter - Dali Knutson [facility] - 11/28/2023 4:10 PM EST Images from the original note were not included. This is a new PA request. Upon review of this prior authorization request, I verified this request is appropriate. This is prescribed by a department for which [facility] is authorized to review prior authorizations [...] to proceed. Thank you, Dali Knutson CPhT Nutrition Counselor Guest Experience Specialist [facility] ([facility]) (Formerly [facility]pharm[facility]) [...] follows: Patient name: Jamari Chavira ID number: [id number] BIN number: [id number] PCN number: [id number] Group number: [id number] Subscriber name: Jamari Chavira Primary or Secondary Insurance:Primary Medication: Benztropine Mesylate 0.5 MG Oral Tablet (Cogentin) Reason for Request: needs pa Pharmacy and phone number: [id number] [address] [facility] [place] Rx plan and phone number: Is this a new medication for the patient? Yes What alternative medications does the pharmacy have in stock?: n/a ThanksPadmini Nutrition Counselor [facility] ([facility]) 11/27/2023,4:02 PM documented in this encounter Plan of Treatment Upcoming Encounters Date Type Department Care Team (Late st Contact Info) Description 12/12/2023 1:30 PM EST Office Visit Orthopaedics [address] [place] [address] Dago Nicholas PA-C [address] [place] [address] 02/06/2024 12:20 PM EDT Office Visit [facility] [place] [address] Jamari Guidry III, MD [address] [facility] [place] [address] Health Maintenance Due Date Last Done Comments [...] disorder documented in this encounter Care Teams Personal Vehicle Advisor Relationship Specialty Start Date End Date Jamari Guidry III, MD [address] [place] [address] PCP - General 03/11/01 documented as of this encounter
--- OUTSIDE RECORDS SUMMARY | 2024-01-08 05:27 | External Medical Summary | Summary of Care ---
Author Name Unknown Organization [facility] Address [address] [place] [address] Phone [phone] Care Team Providers Care Steel Heater Name Role Phone Brea HUNT MD, Jamari Rico Primary Care Provider [phone] Reason for Visit * Reason Comments Follow Up Left knee Encounter Details Date Type Department Care Team (Latest Contact Info) Description 09/06/2023 1:45 PM EST Office Visit Orthopaedics [facility] [address] [place] [address] Dago Nicholas PA-C [address] [place] [address] Primary osteoarthritis of left knee* Allergies No known active allergiesdocumented as of this encounter (statuses as of 09/06/2023) Medications Medication Sig Dispensed Refills Start Date [...] EVERY DAY 90 Tablet 3 05/04/2023 Active hydroCHLOROthiazide 25 MG Oral Tablet (Hydrodiuril)Indicat ions:HTN, goal below 140/90 TAKE 1 TABLET BY MOUTH EVERY DAY BY MOUTH 90 Tablet 1 05/23/2023 Active Metoprolol Succinate ER 25 MG Oral Tablet Extended Release 24 Hour 1 tablet by mouth daily in the evening 90 Tablet 3 07/05/2023 Active metFORMIN HCl ER 500 MG Oral Tablet Extended Release 24 Hour (Glucophage XR)Indications:Impai red fasting glucose TAKE 1 TABLET BY MOUTH EVERY DAY 90 Tablet 3 08/26/2023 Active Hospital, Clinic, or Other Facility Administered Medication Ordered Dose Route Frequency Start Date End Date Status lidocaine 1% 1 mL - triamcinolone acetonide 40 mg/mL 1 mL inj 2 mLIndications:Primary osteoarthritis of left knee 2 mL IJ ONCE 09/06/2023 09/06/20 23 Ended documented as of this encounter (statuses as of 09/06/2023) Active Problems Problem Noted Date Diagnosed Date Prostate cancer 08/19/2021 PAF (paroxysmal atrial fibrillation) 09/01/2020 Dyslipidemia, goal LDL below 100 02/07/2019 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 SCHIZOPHRENIA NOS-CHR 04/03/2001 HTN, goal below 140/90 04/03/2001 documented as of this encounter (statuses as of 09/06/2023) Resolved Problems Problem Noted Date Diagnosed Date Resolved Date Dyslipidemia 10/04/2018 04/02/2019 Prediabetes 12/11/2017 08/10/2022 Overview: Per Prediabetes protocol #1 Retention of urine 11/21/2011 8 Overview: ICD-10 update of inactive term documented as of this encounter (statuses as of 09/06/2023) Immunizations Name Administration Dates Next Due COVID-19 mRNA, LNP-s, No Pre serve, 2-Dose Series ([employer]) 09/19/2021 COVID-19, LNP-s, No Preserve , Gage-sucrose, Ages 12+ ([employer]) 02/02/2022 COVID-19, MRNA-LNP, 23-24, P F, 30 MCG/0.3 mL, 12 YRS AND ABOVE, IM ([employer]) 07/19/2023 Covid-19 Ad26, Single Dose ([employer]) 01/04/2021,01/04/2021 Pneumococcal Conjugate Vacc, 13 Valent (Prevnar) 10/18/2015 Pneumococcal Polysaccharide PPV23 (Pneumovax) 03/17/2009 SEASONAL INFLUENZA, PF, 6 M & Above, IM , (FLULAVAL or FLUZONE) 09/04/2018,07/27/2017 Season Influenza, Quad, PF, Adjuvanted, 65+ Yrs, IM (FLUAD) 07/10/2023 Seasonal Influenza Virus Vac cine, Unspecified Formulation 06/30/2022,07/19/2021,09/04/2018,07/19,07/27/2017,08/24/2016,07/16/2014 ,08/18/2013,08/22/2012,08/31/2011,08/29,08/31/2009,09/03/2008, 6 Seasonal Influenza, Quadriva lent Hd, 65+ Yrs [...] Progress Notes * Dago Nicholas PA-C - 09/06/2023 2:13 PM ESTAssociated Order(s): LG Joint Inj/Arthro: L [...] hours. LG Joint Inj/Arthro: L knee on 09/06/2023 2:15 PM Indications: pain Details: 22 G needle, anterolateral approach Medications: (Triamcinolone lidocaine) Outcome: tolerated well, no immediate complications Procedure, treatment alternatives, risks and benefits explained, specific risks discussed. Consent was given by the patient. Immediately prior to procedure a time out was called to verify the correctpatient, procedure, equipment, support specialist and site/side marked as required. Patient was prepped and draped in the usual sterile fashion. This chart was completed in part utilizing [employer] Speech Voice Recognition Software. Grammatical errors, random word insertions, prounoun errors, and incomplete sentences are an occasional consequence of this system due to software limitations, ambient noise, and hardware issues. Any formal questions or concerns about the content, text, or information contained within the body of this dictation should be directly addressed to the provider for clarification. documented in this encounter Nursing Notes * Erin Arana MED ASSIST - 09/06/2023 1:36 PM EST Patient presents today for 6 month follow up on left knee OA. documented in this encounter Plan of Treatment Upcoming Encounters Date Type Department Care Team (Late st Contact Info) Description 12/12/2023 1:30 PM EST Office Visit Orthopaedics [facility] [address] [facility] [place] [phone] Dago Nicholas PA-C [address] [place] [address] 02/06/2024 12:20 PM EDT Office Visit Family Practice Amanda Fuentes [place] [address] [facility] [place] [address] Jamari Guidry III, MD [address] [facility] [place] [address] Health Maintenance Due Date Last Done Comments [...] Influenza Vaccine (FLU shot) Completed 07/10/2023, 06/30/2022, 07/19/2021, Additional history exists COVID-19 Vaccine Completed 07/19/2023, [...] Procedure Name Priority Date/Time Associated Diagnosis Comments NE ARTHROCENTESIS ASPIR&/INJ MAJOR JT/BURSA W/O US Routine 09/06/2023 2:15 PM EST Primary osteoarthritis of left knee documented in this encounter Results * NE ARTHROCENTESIS ASPIR&/INJ MAJOR JT/BURSA W/O US (09/06/2023 2:15 PM EST) Narrative Dago Nicholas PA-C - 09/06/2023 2:15 PM EST Dago Nicholas PA-C 09/06/2023 2:15 PM LG Joint Inj/Arthro: L knee on 09/06/2023 2:15 PM Indications: pain Details: 22 G needle, anterolateral approach Medications: (Triamcinolone lidocaine) Outcome: tolerated well, no immediate complications Procedure, treatment alternatives, risks and benefits explained, specific risks discussed. Consent was given by the patient. Immediately prior to procedure a time out was called to verify the correct patient, procedure, equipment, support specialist and site/side marked as required. [...] 2 mL 2 mL, Injection, ONCE, On Sima 09/06/23 at 1445, For 1 dose, Lidocaine 1% 1mL Triamcinolone Acetonide 40 mg/mL 1 mL (Final concentration = 20 mg/mL) REFRIGERATE and SHAKE WELL Given 09/06/2023 2:16 PM EST 2 mL Knee Left documented in this encounter Care Teams Steel Heater Relationship Specialty Start Date End Date Jamari Guidry III, MD [address] [facility] [place], [place] [address] PCP - General 03/11/01 documented as of this encounter
--- OUTSIDE RECORDS SUMMARY | 2024-01-08 05:27 | External Medical Summary | Summary of Care ---
Author Name Unknown Organization [facility] Address [address] [place] [address] Phone [phone] Care Team Providers Care Anesthesiologist Assistant Certified Name Role Phone Brea HUNT MD, John E Primary Care Provider [phone] Reason for Visit * Reason Comments Follow Up Encounter Details Date Type Department Care Team Description 08/06/2023 Office Visit Family Practice [facility] [address] [facility] [place] [phone] Jamari Guidry III, MD [address] [facility] [place] [address] HTN, goal below 140/90*; PAF (paroxysmal atrial fibrillation) (HCC); Prediabetes Allergies No known active allergiesdocumented as of this encounter (statuses as of 08/09/2023) Medications Medication Sig Dispensed Refills Start Date End Date Status MULTIVITAMIN/MINE RAL FORMULA TABS OR One tab by mouth every 3rd day 30 0 05/10/2001 Active LOXAPINE SUCCINATE 10 MG PO CAPSIndications:1 5mg in evening Take 15 mg by mouth daily. 0 Active ECHINACEA 400 MG PO CAPS Take by mouth as needed for Other (to boost immune system). 0 Active Cholecalciferol (VITAMIN D3) 25 MCG TABSIndications:i n pm Take by mouth. 0 Active Docusate Sodium 100 MG Oral Capsule (Colace) Take 1 Capsule by mouth in the morning and 1 Capsule before bedtime. 0 10/12/2021 Active metFORMIN HCl ER 500 MG Oral Tablet Extended Release 24 Hour (Glucophage XR)Indications:Im paired fasting glucose TAKE 1 TABLET BY MOUTH EVERY DAY 90 Tablet 3 09/07/2022 Active Eliquis 5 MG Oral Tablet (Apixaban)Indicat ions:Paroxysmal atrial fibrillation (HCC) TAKE 1 TABLET BY MOUTH TWICE A DAY 180 Tablet 3 12/04/2022 Active Fluocinonide 0.05 % External OintmentIndicatio ns:Stasis dermatitis of both legs Apply topically to affected area 2 times a day. Apply to the lower legs 30 g 1 12/06/2022 Active dilTIAZem HCl ER Coated Beads 120 MG Oral Capsule Extended Release 24 Hour (Cardizem CD) Take 1 Capsule by mouth in the morning. 90 Capsule 3 03/08/2023 Active Atorvastatin Calcium 20 MG Oral Tablet (Lipitor)Indicati ons:Dyslipidemia, goal to be determined TAKE 1 TABLET BY MOUTH EVERY DAY IN THE MORNING 90 Tablet 3 04/12/2023 Active Losartan Potassium 100 MG Oral Tablet (Cozaar) TAKE 1 TABLET BY MOUTH EVERY DAY 90 Tablet 3 05/04/2023 Active hydroCHLOROthiazi de 25 MG Oral Tablet (Hydrodiuril)Beverley cations:HTN, goal below 140/90 TAKE 1 TABLET BY MOUTH EVERY DAY BY MOUTH 90 Tablet 1 05/23/2023 Active Metoprolol Succinate ER 25 MG Oral Tablet Extended Release 24 Hour 1 tablet by mouth daily in the evening 90 Tablet 3 07/05/2023 Active Multiple Vitamins-Minerals ([facility]) TABSIndications:i n pm Take by mouth. Takes 2 days and off one-alternates with multivitamin 0 3 Discontinue d(Medicatio n List Clean Up) documented as of this encounter (statuses as of 08/09/2023) Active Problems Problem Noted Date Prostate cancer 08/19/2021 PAF (paroxysmal atrial fibrillation) 01/2020 Dyslipidemia, goal LDL below 100 019 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 SCHIZOPHRENIA NOS-CHR 04/03/2001 HTN, goal below 140/90 04/03/2001 documented as of this encounter (statuses as of 08/09/2023) Resolved Problems Problem Noted Date Resolved Date Dyslipidemia 10/04/2018 04/02/2019 Prediabetes 12/11/2017 08/10/2022 Overview: Per Prediabetes protocol #1 Retention of urine 11/21/2011 10/04/2018 Overview: ICD-10 update of inactive term documented as of this encounter (statuses as of 08/09/2023) Immunizations Name Administration Dates Next Due COVID-19 mRNA, LNP-s, No Pre serve, 2-Dose Series ([employer]) 09/19/2021 COVID-19, LNP-s, No Preserve , Gage-sucrose, Ages 12+ ([employer]) 02/02/2022 COVID-19, MRNA-LNP, 23-24, P F, 30 MCG/0.3 mL, 12 YRS AND ABOVE, IM ([employer]) 07/19/2023 Covid-19 Ad26, Single Dose ([employer]) 01/04/2021,01/04/2021 Pneumococcal Conjugate Vacc, 13 Valent (Prevnar) [...] = 0.6 oz pur e alcohol) rarely Sex Assigned at Date Recorded Male 02/07/2019 11:47 AM EDT Job Start Date Occupation Industry Not on file Not on file Not on file documented as of this encounter Last Filed Vital Signs Vital Sign Reading Time Taken Comments Blood Pressure 112/74 08/06/2023 12:07 PM EDT Pulse 78 08/06/2023 12:07 PM EDT Temperature 36.5 C (97.7 F) 08/06/2023 1 2:07 PM EDT Respiratory Rate 16 08/06/2023 12:0 7 PM EDT Oxygen Saturation 97% 08/06/2023 12: 07 PM EDT Inhaled Oxygen Concentration - - Weight 88.8 kg (195 lb 12.8 oz) 023 12:07 PM EDT Height - - Body Mass Index 25.83 06/22/2023 3:55 PM EDT documented in this encounter Progress Notes * Jamari Guidry III, MD - 08/06/2023 12:25 PM EDT Subjective: Jamari Chavira is a 78 year old male. Chief Complaint Patient presents with Follow Up HPI: Follow-up hypertension pre diabetes dyslipidemia paroxysmally atrial fibrillation most part hehas been feeling well no problems with his meds no exertional chest pain shortness of breath claudication or swelling no bleeding urine or bowels PMH: Patient Active Problem List Diagnosis Code SCHIZOPHRENIA NOS-CHR F20.9 HTN, goal below 140/90 I10 ADVANCE DIRECTIVE INFORMATION Testicular atrophy N50.0 Dyslipidemia, goal LDL below 100 E78.5 PAF (paroxysmal atrial fibrillation) (HCC) I48.0 Prostate cancer (HCC) C61 Current Outpatient Medications Medication Sig Dispense Refill MULTIVITAMIN/MINERAL FORMULA TABS OR One tab by mouth every 3rd day 30 0 LOXAPINE SUCCINATE 10 MG PO CAPS Take 15 mg by mouth daily. ECHINACEA 400 MG PO CAPS Take by mouth as needed for Other (to boost immune system). Cholecalciferol (VITAMIN D3) 25 MCG TABS Take by mouth. Docusate Sodium 100 MG Oral Capsule (Colace) Take 1 Capsule by mouth in the morning and 1 Capsule before bedtime. metFORMIN HCl ER 500 MG Oral Tablet Extended Release 24 Hour (Glucophage XR) TAKE 1 TABLET BY MOUTHEVERY DAY 90 Tablet 3 Eliquis 5 MG Oral Tablet (Apixaban) TAKE 1 TABLET BY MOUTH TWICE A DAY 180 Tablet 3 Fluocinonide 0.05 % External Ointment Apply topically to affected area 2 times a day. Apply to the lower legs 30 g 1 dilTIAZem HCl ER Coated Beads 120 MG Oral Capsule Extended Release 24 Hour (Cardizem CD) Take 1 Capsule by mouth in the morning. 90 Capsule 3 Atorvastatin Calcium 20 MG Oral Tablet (Lipitor) TAKE 1 TABLET BY MOUTH EVERY DAY IN THE MORNING 90Tablet 3 Losartan Potassium 100 MG Oral Tablet (Cozaar) TAKE 1 TABLET BY MOUTH EVERY DAY 90 Tablet 3 hydroCHLOROthiazide 25 MG Oral Tablet (Hydrodiuril) TAKE 1 TABLET BY MOUTH EVERY DAY BY MOUTH 90 Tablet 1 Metoprolol Succinate ER 25 MG Oral Tablet Extended Release 24 Hour 1 tablet by mouth daily in the evening 90 Tablet 3 No current facility-administered medications for this visit. Review of patient's allergies indicates: No Known Allergies Past Medical History: Diagnosis Date Atrophy of testis Cataracts, bilateral HTN, goal below 140/90 Hypertension Benign INFORMATION spastic colon Prostate cancer (HCC) Simple schizophrenia, chronic condition (HCC) Schizophrenia, Primary Past Surgical History: Procedure Laterality Date COLONOSCOPY, DIAGNOSTIC (RECTUM) 06/02/2015 adenomatous polyps, 3 yr recall COLONOSCOPY, DIAGNOSTIC (RECTUM) 07/05/2018 poor prep, diverticulosis, repeat exam/COLONOSCOPY FLEXIBLE PROXIMAL DIAGNOSTIC performed by Kel Manzanares MD at [facility] COLONOSCOPY, DIAGNOSTIC (RECTUM) 09/16/2018 adenomatous polyps, diverticulosis, repeat 3 yrs/COLONOSCOPY FLEXIBLE PROXIMAL DIAGNOSTIC performedby Simran Manzanares MD at ENDOSCOPY [facility] COLONOSCOPY, DIAGNOSTIC (RECTUM) 12/12/2022 hyperplastic polyp / COLONOSCOPY FLEXIBLE PROXIMAL DIAGNOSTIC performed by Simran Manzanares MD at ENDOSCOPY [facility] CYSTOSCOPY 11/21/2011 EGD, FLEXIBLE, DIAGNOSTIC 06/02/2015 normal bx MRI L SPINE W WO CONTRAST 02/06/2005 no herniation,stenosis/2 renal cysts/fu us REMOVE TONSILS & ADENOIDS, UNDER 12 7 T & A, age<12 Objective: The patient is a 78 year old male BP 112/74 | Pulse 78 | Temp 36.5 C (97.7 F) (Tympanic) | Resp 16 | Wt 88.8 kg (195 lb 12.8 oz) | SpO2 97% | BMI 25.83 kg/m | BSA 2.14 m General: alert, healthy, and no distress Eye Exam: PERRLA, extraocular movements intact, conjunctiva are pink and non- injected, sclera clear Oropharynx: no exudate, no erythema, lips, buccal mucosa, and tongue normal, and mucous membranes are moist Heart: regular rate & rhythm, no murmur, and no gallops Lungs: lungs clear to auscultation Extremities: no edema, no clubbing, no cyanosis ASSESSMENT: I10 HTN, goal below 140/90 (primary encounter diagnosis) I48.0 PAF (paroxysmal atrial fibrillation) ([facility]) R73.03 Prediabetes PLAN: A1c 5.4 potassium 4.4 hemoglobin 14.2 B12 normal continue present meds call if problems RSV vaccinediscussed Follow up in 6 month(s). Jamari Guidry III, MD documented in this encounter Nursing Notes * Luz Page LPN - 08/06/2023 12:06 PM EDT Jamari Chavira presents for 6 month recheck. Medications & HM reviewed. documented in this encounter Plan of Treatment Upcoming Encounters Date Type Specialty Care Team Description 09/06/2023 Office Visit Orthopedics Dago Nicholas PA-C [address] [place] [address] 02/06/2024 Office Visit Family Medicine Brea HUNT, [facility] [phone] Scheduled Orders Name Type Priority Associated Diagnoses Orde r Schedule COMPREHENSIVE METABOLIC PANEL Lab Routine HTN, goal below 140/90 Expected: 08/06/2023 (Approximate), Expires: 08/05/2024 LIPID PANEL WITH DIRECT LDL IF TG IS HIGH Lab Routine HTN, goal below 140/90 Expected: 08/06/2023, Expires: 08/06/2024 Health Maintenance Due Date Last Done Comments [...] Procedure Name Priority Date/Time Associated Diagnosis Comments ALBUMIN / CREATININE RATIO, URINE Routine 08/06/2023 12:10 PM EDT HTN, goal below 140/90 documented in this encounter Results * ALBUMIN / CREATININE RATIO, URINE (08/06/2023 12:10 PM EDT) Albumin, Random Urine <1.20 mg/dL 08/07/2023 1:26 AM EDT [facility] Creatinine, Random Urine 16 mg/dL 08/07/2023 1:26 AM EDT [facility] Albumin / Creatinine Ratio, Urine Uninterpretable Albumin/Creatinine ratio due to very low albumin and creatinine values. <30 mg/g Creat 08/07/2023 1:26 AM EDT [facility] Urine Urine specimen obtained by clean catch procedure / Unknown Non-blood Collection / Unknown 08/06/2023 12:10 PM EDT 08/06/2023 2:45 PM EDT Narrative [facility] - 08/07/2023 1:26 AM EDT Normal: <30 mg/g creatinine High: 30-300 mg/g creatinine Very High: >300 mg/g creatinine Nephrotic: >2200 mg/g creatinine Jamari Guidry III, MD LAB URINE ORDERABLE S Performing Organization Address City/State/[facility] Co de Phone Number [facility] [address] [place] [address] documented in this encounter Visit Diagnoses Diagnosis HTN, goal below 140/90- Primary Unspecified essential hypertension PAF (paroxysmal atrial fibrillation) (HCC) Atrial fibrillation Prediabetes Other abnormal glucose documented in this encounter Care Teams Anesthesiologist Assistant Certified Relationship Specialty Start Date End Date Jamari Guidry III, MD [address] [place] [address] PCP - General 03/11/01 documented as of this encounter"
--- OUTSIDE RECORDS SUMMARY | 2024-01-08 05:27 | External Medical Summary | Summary of Care ---
Author Name Unknown Organization [facility] Address [address] [place] [address] Phone [phone] Care Team Providers Care Global Sales Director Name Role Phone Brea HUNT MD, Jamari Rico Primary Care Provider [phone] Reason for Visit * Reason Comments Follow Up Left knee Encounter Details Date Type Department Care Team (Latest Contact Info) Description 09/06/2023 1:45 PM EST Office Visit Orthopaedics [facility] [address] [place] [address] Dago Nicholas PA-C [address] [place] [address] Primary osteoarthritis of left knee* Allergies No [...] mRNA, LNP-s, No Pre serve, 2-Dose Series ([employer]) 09/19/2021 COVID-19, LNP-s, No Preserve , Gage-sucrose, Ages 12+ ([employer]) 02/02/2022 COVID-19, MRNA-LNP, 23-24, P F, 30 MCG/0.3 mL, 12 YRS AND ABOVE, IM ([employer]) 07/19/2023 Covid-19 Ad26, Single Dose ([employer]) 01/04/2021,01/04/2021 Pneumococcal Conjugate Vacc, 13 Valent (Prevnar) [...] called to verify the correctpatient, procedure, equipment, lead performance support analyst and site/side marked as required. Patient was prepped and draped in the usual sterile fashion. This chart was completed in part utilizing [employer] Speech Voice Recognition Software. Grammatical errors, random [...] 12/12/2023 1:30 PM EST Office Visit Orthopaedics [facility] [address] [facility] [place] [phone] Dago Nicholas PA-C [address] [place] [address] 02/06/2024 12:20 PM EDT Office Visit Family Practice Amanda Fuentes [place] 200 [facility] [place] [address] Jamari Guidry III, MD [address] [facility] [place] [address] Health Maintenance Due Date Last Done Comments [...] Procedure Name Priority Date/Time Associated Diagnosis Comments [place] ARTHROCENTESIS ASPIR&/INJ MAJOR JT/BURSA W/O US Routine 09/06/2023 2:15 PM EST Primary osteoarthritis of left knee documented in this encounter Results * FL ARTHROCENTESIS ASPIR&/INJ MAJOR JT/BURSA W/O US (09/06/2023 [...] to verify the correct patient, procedure, equipment, lead performance support analyst and site/side marked as required. [...] Left documented in this encounter Care Teams Global Sales Director Relationship Specialty Start Date End Date Jamari Guidry III, MD [address] [facility] [place], [place] [address] PCP - General 03/11/01 documented as of this encounter
--- OUTSIDE RECORDS SUMMARY | 2024-01-08 05:27 | External Medical Summary | Summary of Care ---
Author Name Unknown Organization [facility] Address [address] [place] [address] Phone [phone] Care Team Providers Care Title Insurance Agent Name Role Phone Brea HUNT MD, Allan Rico Primary Care Provider [phone] Reason for Visit * Reason Comments eRx-Medication Refill Encounter Details Date Type Department Care Team (Late st Contact Info) Description 08/26/2023 Refill Family Practice [facility] [address] [facility] [place] [address] Allan Navarro III, MD [address] [place] [address] Impaired fasting glucose Allergies No known active allergiesdocumented as of this encounter (statuses as of 08/26/2023) Medications Medication Sig Dispensed Refills Start Date End Date Status MULTIVITAMIN/LAST CHALKER AL FORMULA TABS OR One tab by [...] EVERY DAY 90 Tablet 3 05/04/2023 Active hydroCHLOROthiazid e 25 MG Oral Tablet [...] EVERY DAY 90 Tablet 3 08/26/2023 Active metFORMIN HCl ER 500 MG Oral Tablet Extended Release 24 Hour (Glucophage XR)Indications:Imp aired fasting glucose TAKE 1 TABLET BY MOUTH EVERY DAY 90 Tablet 3 09/07/2022 3 Discontinued documented as of this encounter (statuses as of 08/26/2023) Active Problems Problem Noted Date Diagnosed Date Prostate cancer 08/19/2021 PAF (paroxysmal atrial fibrillation) 09/01/2020 Dyslipidemia, goal LDL below 100 02/07/2019 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 SCHIZOPHRENIA NOS-CHR 04/03/2001 HTN, goal below 140/90 04/03/2001 documented as of this encounter (statuses as of 08/26/2023) Resolved Problems Problem Noted Date Diagnosed Date Resolved Date Dyslipidemia 10/04/2018 04/02/2019 Prediabetes 12/11/2017 08/10/2022 Overview: Per Prediabetes protocol #1 Retention of urine 11/21/2011 8 Overview: ICD-10 update of inactive term documented as of this encounter (statuses as of 08/26/2023) Immunizations Name Administration Dates Next Due COVID-19 mRNA, LNP-s, No Pre serve, 2-Dose Series ([employer]) 09/19/2021 COVID-19, LNP-s, No Preserve , Gage-sucrose, Ages 12+ (Pfizer) 02/02/2022 COVID-19, MRNA-LNP, 23-24, P F, 30 MCG/0.3 mL, 12 YRS AND ABOVE, IM ([employer]ir[employer]ure) 07/19/2023 Covid-19 Ad26, Single Dose ([employer]/J&J) 01/04/2021,01/04/2021 Pneumococcal Conjugate Vacc, 13 Valent (Prevnar) [...] 0.6 oz pur e alcohol) rarely Sex and Gender Information Value Date Recorded Sex Assigned at Male 02/07/2019 11:47 AM EDT Gender Identity Male 02/07/2019 11:47 AM EDT Sexual Orientation Straight 02/07/2019 11 :47 AM EDT Job Start Date Occupation Industry Not on file Not on file Not on file documented as of this encounter Miscellaneous Notes * Telephone Encounter - Nahid Fritz RPh - 08/26/2023 10:10 AM EDTSigned Prescriptions: Disp Refills metFORMIN HCl ER 500 MG Oral Tablet Extend*90 Tab*3 Sig: TAKE 1 TABLET BY MOUTH EVERY DAYAuthorizing Provider: ALLAN NAVARRO III User: NAHID FRITZ documented in this encounter Plan of Treatment Upcoming Encounters Date Type Department Care Team (Late st Contact Info) Description 09/06/2023 1:45 PM EST Office Visit Orthopaedics [facility] [address] [place] [address] Dago Nicholas PA-C [address] [place] [address] 02/06/2024 12:20 PM EDT Office Visit Family Practice [facility] [address] [place] [address] Allan Navarro III, MD [address] [facility] [place] [address] Health Maintenance Due Date Last Done Comments [...] as of this encounter Visit Diagnoses Diagnosis Impaired fasting glucose documented in this encounter Care Teams Title Insurance Agent Relationship Specialty Start Date End Date Allan Navarro III, MD [address] [place] [address] PCP - General 03/11/01 documented as of this encounter
--- OUTSIDE RECORDS SUMMARY | 2024-01-08 05:27 | External Medical Summary ---
Author Name Unknown Address Unknown Organization [id number]:LABORATORY [facility] - [address] [place] [address] Laboratory Report Ordering Provider Test Date Status OMARI LEMUSATT III 08/06/2023 12:10:13 Final Normal: <30 mg/g creatinine< br/>High: 30-300 mg/g creatinine
Very High: >300 mg/g creatinine
Nephrotic: >2200 mg/g creatinine Observation Date Value Abnormality Reference (Units) Status Albumin, Urine 08/06/2023 12:10:13 <1.20 (mg/dL) Final Creatinine, Urine 08/06/2023 12:10:13 16 (mg/dL) Final ALBUMIN/CREATININE RATIO, HIDE 08/06/2023 12:10:13 Uninterpretable Albumin/Creatinine ratio due to very low albumin and creatinine values. <30 (mg/g Creat) Final Performing Location LABORATORY [facility] - [address] [place] [address]
--- OUTSIDE RECORDS SUMMARY | 2024-01-08 05:27 | External Medical Summary ---
Author Name Unknown Address Unknown Organization [id number]:[facility] [place] [address] [place] [address] Laboratory Report Ordering Provider Test Date Status RAMON LEMUS III 07/31/2023 13:40:09 Final Observation Date Value Abnormality Reference (Units ) Status WBC, Total 07/31/2023 13:40:09 7.10 4.00-10.8 0 (K/uL) Final RBC 07/31/2023 13:40:09 4.27 4.50-5.25 (M/uL) Final Hemoglobin 07/31/2023 13:40:09 14.2 14.0-16.8 (g/dL) Final HCT 07/31/2023 13:40:09 41.5 40.0-48.4 (%) Final MCV 07/31/2023 13:40:09 97.2 82.0-99.5 (fL) Final MCH 07/31/2023 13:40:09 33.3 27.0-34.0 (pg) Final MCHC 07/31/2023 13:40:09 34.2 32.0-36.0 (g/dL) Final RDW 07/31/2023 13:40:09 12.5 11.5-15.5 (%) Final Platelets 07/31/2023 13:40:09 341 140-400 (K /uL) Final MPV 07/31/2023 13:40:09 8.6 6.6-11.1 ( fL) Final Performing Location [facility] [place] [address]
--- OUTSIDE RECORDS SUMMARY | 2024-01-08 05:27 | External Medical Summary ---
Author Name Unknown Address Unknown Organization [id number]:[facility] [address] [place] [address] Laboratory Report Ordering Provider Test Date Status RAMON LEMUS III 07/31/2023 13:40:09 Final Observation Date Value Abnormality Reference (Units ) Status BUN 07/31/2023 13:40:09 10 6-20 (mg/dL) Final Creatinine 07/31/2023 13:40:09 0.8 0.6-1.2 (mg/dL) Final Glomerular filtration rate/1.73 sq M.predicted [Volume Rate/Area] in Serum, Plasma or Blood by Creatinine-based formula (CKD-EPI) 07/31/2023 13:40:09 89 >=60 (mL/min) Final eGFR is calculated based on the CKD-EPI 2020 equation SODIUM 07/31/2023 13:40:09 133 Below low normal 135 -146 (mmol/L) Final Potassium 07/31/2023 13:40:09 4.4 3.5-5.1 (m mol/L) Final Cl 07/31/2023 13:40:09 97 Below low normal 98- 107 (mmol/L) Final CO2 07/31/2023 13:40:09 23 22-32 (mmo l/L) Final Anion gap 07/31/2023 13:40:09 13 7-15 (mmol /L) Final Glucose 07/31/2023 13:40:09 168 Above high normal 70 -120 (mg/dL) Final Albumin 07/31/2023 13:40:09 4.4 3.8-5.0 (g /dL) Final AST (Aspartate aminotransferase) 07/31/2023 13:40:09 13 10-50 (U/L) Fin al Alk Phos 07/31/2023 13:40:09 86 35-130 (U/ L) Final Bilirubin, Total 07/31/2023 13:40:09 1.3 Above high no rmal <=1.2 (mg/dL) Final Calcium 07/31/2023 13:40:09 9.4 8.4-10.2 ( mg/dL) Final Protein 07/31/2023 13:40:09 6.0 6.0-8.3 (g /dL) Final ALT (Alanine aminotransferase) 07/31/2023 13:40:09 15 10-50 (U/L) Hebert burks Performing Location [facility] [address] [place] [address]
--- OUTSIDE RECORDS SUMMARY | 2024-01-08 05:27 | External Medical Summary | Summary of Care ---
Author Name Unknown Organization [facility] Address [address] [place] [place] [place] [address] Phone [phone] Care Team Providers Care Hearing Dog Trainer Name Role Phone Brea HUNT MD, Jamari Rico Primary Care Provider [phone] Reason for Visit * Reason Comments Outpatient Testing Encounter Details Date Type Department Care Team Description 07/31/2023 Laboratory Laboratory [facility] [place] [address] [place] [address] [facility] [address] [place] [address] HTN, goal below 140/90; Bruising; Encounter for long-term (current) use of medications; Prediabetes Allergies No known active allergiesdocumented as of this encounter (statuses as of 07/31/2023) Medications Medication Sig Dispensed Refills Start Date End Date Status MULTIVITAMIN/MINERA L FORMULA TABS OR 1 TABLET DAILY 30 0 05/10/2001 Active LOXAPINE SUCCINATE 10 MG PO CAPSIndications:15m g in evening Take by mouth. 0 Active ECHINACEA 400 MG PO CAPS Take by mouth as needed for Other (to boost immune system). 0 Active Cholecalciferol (VITAMIN D3) 25 MCG TABSIndications:in pm Take by mouth. 0 Active Multiple Vitamins-Minerals ([employer] [facility]) TABSIndications:in pm Take by mouth. Takes 2 days and off one-alternates with multivitamin 0 Active Docusate Sodium 100 MG Oral Capsule (Colace) Take 1 Capsule by mouth in the morning and 1 Capsule before bedtime. 0 10/12/2021 Active metFORMIN HCl ER 500 MG Oral Tablet Extended Release 24 Hour (Glucophage XR)Indications:Impa ired fasting glucose TAKE 1 TABLET BY MOUTH EVERY DAY 90 Tablet 3 09/07/2022 Active Eliquis 5 MG Oral Tablet (Apixaban)Indicatio ns:Paroxysmal atrial fibrillation (HCC) TAKE 1 TABLET BY MOUTH TWICE A DAY 180 Tablet 3 12/04/2022 Active Fluocinonide 0.05 % External OintmentIndications :Stasis dermatitis of both legs Apply topically to affected area 2 times a day. Apply to the lower legs 30 g 1 12/06/2022 Active dilTIAZem HCl ER Coated Beads 120 MG Oral Capsule Extended Release 24 Hour (Cardizem CD) Take 1 Capsule by mouth in the morning. 90 Capsule 3 03/08/2023 Active Atorvastatin Calcium 20 MG Oral Tablet (Lipitor)Indication s:Dyslipidemia, goal to be determined TAKE 1 TABLET BY MOUTH EVERY DAY IN THE MORNING 90 Tablet 3 04/12/2023 Active Losartan Potassium 100 MG Oral Tablet (Cozaar) TAKE 1 TABLET BY MOUTH EVERY DAY 90 Tablet 3 05/04/2023 Active hydroCHLOROthiazide 25 MG Oral Tablet (Hydrodiuril)Indica tions:HTN, goal below 140/90 TAKE 1 TABLET BY MOUTH EVERY DAY BY MOUTH 90 Tablet 1 05/23/2023 Active Metoprolol Succinate ER 25 MG Oral Tablet Extended Release 24 Hour (Toprol XL) 1 tablet by mouth daily in the evening 90 Tablet 3 07/05/2023 Active documented as of this encounter (statuses as of 07/31/2023) Active Problems Problem Noted Date Prostate cancer 08/19/2021 PAF (paroxysmal atrial fibrillation) 01/2020 Dyslipidemia, goal LDL below 100 019 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 SCHIZOPHRENIA NOS-CHR 04/03/2001 HTN, goal below 140/90 04/03/2001 documented as of this encounter (statuses as of 07/31/2023) Resolved Problems Problem Noted Date Resolved Date Dyslipidemia 10/04/2018 04/02/2019 Prediabetes 12/11/2017 08/10/2022 Overview: Per Prediabetes protocol #1 Retention of urine 11/21/2011 10/04/2018 Overview: ICD-10 update of inactive term documented as of this encounter (statuses as of 07/31/2023) Immunizations Name Administration Dates Next Due COVID-19 mRNA, LNP-s, No Pre serve, 2-Dose Series (Har[employer]) 09/19/2021 COVID-19, LNP-s, No Preserve , Gage-sucrose, Ages 12+ (Pfizer) 02/02/2022 Covid-19 Ad26, Single Dose ([employer]/J&Aldera) 01/04/2021,01/04/2021 Pneumococcal Conjugate Vacc, 13 Valent (Prevnar) 10/18/2015 Pneumococcal Polysaccharide PPV23 (Pneumovax) 03/17/2009 SEASONAL INFLUENZA, PF, 6 M & Above, IM , (FLULAVAL or FLUZONE) 09/04/2018,07/27/2017 Seasonal Influenza Virus Vac cine, Unspecified Formulation [...] on file documented as of this encounter Plan of Treatment Upcoming Encounters Date Type Specialty Care Team Description 08/06/2023 Office Visit Family Medicine Brea III, Jamari Rico MD [address] [place], [place] [id number] 09/06/2023 Office Visit Orthopedics Dago Nicholas PA-C [address] [place] [address] Pending Results Name Type Priority Associated Diagnoses Date /Time COMPREHENSIVE METABOLIC PANEL Lab Routine HTN, goal below 140/90 07/31/2023 1:40 PM EDT VITAMIN B12 Lab Routine Bruising Encounter for long-term (current) use of medications 07/31/2023 1:40 PM EDT HEMOGLOBIN A1C Lab Routine Prediabetes 07/31/2023 1:40 PM EDT Health Maintenance Due Date Last Done Comments Hepatitis C Screening 01/04/1963 Depression Screening 09/20/2022 09/20/2021 B-12 02/09/2023 02/09/2022, 06/29, 04/21/2019, Additional history exists GFR 01/17/2024 01/16/2023, 01/27, 09/02/2021, Additional history exists Albumin/Creatinine Ratio 07/28/2025 07/28/2022 DTaP,Tdap,and Td Vaccines (2 - Td or [...] Procedure Name Priority Date/Time Associated Diagnosis Comments CBC Routine 07/31/2023 1:40 PM EDT Bruising documented in this encounter Results * CBC (07/31/2023 1:40 PM EDT) WBC 7.10 4.00 - 10.80 K/uL 07/31/2023 1:54 PM EDT [facility] [place] 56- RBC 4.27 4.50 - 5.25 M/uL 07/31/2023 1:54 PM EDT [facility] 56-02 HGB 14.2 14.0 - 16.8 g/dL 07/31/2023 1:54 PM EDT [facility] 56- HCT 41.5 40.0 - 48.4 % 07/31/2023 1:54 PM EDT [facility] 56- MCV 97.2 82.0 - 99.5 fL 07/31/2023 1:54 PM EDT [facility] [place] 56-02 MCH 33.3 27.0 - 34.0 pg 07/31/2023 1:54 PM EDT [facility] [place] 56-02 MCHC 34.2 32.0 - 36.0 g/dL 07/31/2023 1:54 PM EDT [facility] 56-02 RDW 12.5 11.5 - 15.5 % 07/31/2023 1:54 PM EDT [facility] [place] 56-02 PLT 341 140 - 400 K/uL 07/31/2023 1:54 PM EDT [facility] 56-02 MPV 8.6 6.6 - 11.1 fL 07/31/2023 1:54 PM EDT [facility] 56 Blood Venous blood specimen / Unknown Venipuncture / Unknown 07/31/2023 1:40 PM EDT 07/31/2023 1:40 PM EDT Jamari Guidry III, MD LAB BLOOD ORDERABLE S [facility] [address] [place] [address] documented in this encounter Visit Diagnoses Diagnosis HTN, goal below 140/90 Unspecified essential hypertension Bruising Contusion of unspecified site Encounter for long-term (current) use of medications Encounter for long-term (current) use of other medications Prediabetes Other abnormal glucose documented in this encounter Care Teams Hearing Dog Trainer Relationship Specialty Start Date End Date Jamari Guid[facility] III, [facility] [address] [facility] [address] PCP - General 03/11/01 documented as of this encounter
--- OUTSIDE RECORDS SUMMARY | 2024-01-08 05:27 | External Medical Summary ---
Author Name Unknown Address Unknown Organization [id number]:[facility] [place] [address] [facility] [place] [facility] [address] Laboratory Report Ordering Provider Test Date Status RAMON LEMUS III 07/31/2023 13:40:09 Final Observation Date Value Abnormality Reference (Units ) Status HbA1C 07/31/2023 13:40:09 5.4 4.0-5.6 (% ) Final The use of HbA1c to monitor glycemic status is based on normal hemoglobin and HbA composition. This test should not be used in patients with abnormal hemoglobin that affects the half life of the red blood cell or the in vivo glycation rates. Glucose, estimated average 07/31/2023 13:40:09 108 <126 (mg/dL) Final Performing Location [facility] [facility] [address] [facility] [address]
--- OUTSIDE RECORDS SUMMARY | 2024-01-08 05:27 | External Medical Summary ---
Author Name Unknown Address Unknown Organization [id number]:[facility] [place] [address] [place] [address] Laboratory Report Ordering Provider Test Date Status RAMON LEMUS III 07/31/2023 13:40:09 Final Observation Date Value Abnormality Reference (Units ) Status Vitamin B12 07/31/2023 13:40:09 [id number] (pg/mL) Final Performing Location [facility]AT[facility] - [address] [place] [address]
[2024-01-08] MEDS: CEROVITE ADV FORMULA TAB PO SCH (08:24)
[2024-01-08] MEDS: ATORVASTATIN 20 MG TAB PO SCH (08:24)
[2024-01-08] MEDS: LOSARTAN POTASSIUM 50 MG TAB PO SCH (08:24)
[2024-01-08] MEDS: CHOLECALCIFEROL 25 MCG (1000 UNITS) TAB PO SCH (08:24)
[2024-01-08] MEDS: dilTIAZem HCL 120 MG CAPCR PO SCH (08:24)
[2024-01-08 09:05] LABS: BUN Creatinine Ratio 13.9 (10-20); Calcium 8.2 mg/dl (8.6-10.3); Creatinine Clr Calc Pharmacy 100.5 ml/min; Est GFR (African American) 102.1 ml/min; Est GFR (Non-African American) 88.1 ml/min; Potassium 3.5 mmol/L (3.5-5.1); Uric Acid 4.5 mg/dl (2.6-7.2)
[2024-01-08 09:07] LABS: Estimated Average Glucose 103 mg/dl; Hemoglobin A1C 5.2 % (4.5-5.6)
--- NOTE | 2024-01-08 09:54 | Nephrology Consultation ---
Date of Consultation January 08, 2024 Assessment & Plan (1) Hyponatremia: Acute On chronic Hyponatremia. na was 125 on Admission and now is 128 with some NS infusion. rate of correction is fine. Was on HCTZ so have to assume that was causing the problem. Do not restart and list as allergy forever I would not stop the SSRI--restart that. NS infusion 80 ml/hr. Check urine osm. Also add lasix 10 iv bid -will cause some free water diuresis --that expedite the correction of Na. He really wants to go home tomorrow History of Present Illness Reason for Consultation: Hyponatremia Attending Physician: Theron Fong MD History of Present Illness 79/M with h/o schizophrenia, HTN, history of prostate cancer, prediabetes, atri al fibrillation who presented to the hospital after a fall sustained while he was walking home from the pharmacy. Admits to not feeling great early in the morning before the fall. He reports feeling lightheaded before his fall. Denies any chest pain, shortness of breath. This is new today for him, and notes he felt dizzy again when standing to use the bathroom while here in the ER. He has been taking HCTZ 25 mg daily and loxapine 15 mg daily. Pt states his PO intake was normal recently, he has been trying to drink about 8 glasses of water daily. Pt lives alone. He has meals on wheels at home. na was 125 and it appears hehad low Na even before. Since admission HCTZ and SSRI held and NS given . na gone up to 128 in about 12 hrs time ROS---12 Systems reviewed and negative EXam: Physical Exam Physical Exam: General: awake, alert, no apparent distress, elderly white male Head: Normocephalic, atraumatic ENT: mucous membranes moist Chest: Clear to auscultation, on room air, no adventitious breath sounds Cardiac: Sinus tachycardia, no murmur, no JVD, normal peripheral pulses, good capillary refill Abdominal: Soft, nontender to palpation, no rebound or guarding Extremities: Normal inspection, no peripheral edema or erythema, calfs nontender to palpation Psych: Normal mood and affect, + auditory hallucinations daily , no visual hallucination Neuro: AAO x 3, strength intact bilaterally and rated 5/5, no motor deficits, speech is clear, no peripheral sensory deficits Allergies Allergy/AdvReac Type Severity Reaction Status Date / Time No Known Allergies Allergy Unknown Verified 08/09/22 14:27 Home Medications Medication Instructions Recorded Confirmed Type apixaban 5 mg tablet (Eliquis) 5 mg PO BID 06/01/21 01/07/24 History cholecalciferol (vitamin D3) 25 25 mcg PO QAM 06/01/21 01/07/24 History mcg (1,000 unit) capsule losartan 100 mg tablet 100 mg PO QAM 06/01/21 01/07/24 History atorvastatin 20 mg tablet 20 mg PO QAM 07/15/21 01/07/24 History echinacea 400 mg capsule 400 mg PO UD PRN boost immune 07/15/21 01/07/24 History system loxapine succinate 5 mg capsule 15 mg PO QPM 07/15/21 01/07/24 History hydrochlorothiazide 25 mg tablet 25 mg PO QAM 04/07/22 01/07/24 History docusate sodium 100 mg capsule 100 mg PO BID 07/23/22 01/07/24 History metformin 500 mg tablet,extended 500 mg PO DAILY 07/23/22 01/07/24 History release 24 hr multivitamin with minerals 1 tab PO DAILY 07/23/22 01/07/24 History diltiazem HCl 120 mg 120 mg PO QAM 01/07/24 01/07/24 History capsule,extended release 24 hr metoprolol succinate 25 mg 25 mg PO QPM 01/07/24 01/07/24 History tablet,extended release 24 hr Patient History Medical History Schizophrenia Dx , controlled with meds History of prostate cancer Dx 06/2021; s/p prostatectomy Pre-diabetes On Metformin, Hgb A1C 09/2021 was 5.2 Afib On Eliquis daily--Follows with Dr. Norwood High cholesterol High blood pressure Surgical History History of left cataract extraction History of right cataract extraction History of radical prostatectomy (~10/11/21) History of colonoscopy H/O prostate biopsy History of tonsillectomy and adenoidectomy Family History Father Esophageal cancer Other No family history of adverse response to anesthesia Social History Smoking Status: Never smoker Second Hand Exposure: Yes; Do You Dip or Chew Tobacco: No; Hx Alcohol Use: Yes Alcohol type: beer Hx Substance Use: No Preferred Language: Vietnamese Communication Ability: Effective Visual Impairment: No Limitations Hearing Ability: Normal Senior Vice President & General Counsel Required: No Beliefs That Will Affect Care: None marital status: Single Current Living Situation: Alone Current Living Situation Comment: Lives in apartment alone current occupational status: other 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 Diagnostic Findings reviewed.
[2024-01-08] MEDS: POTASSIUM CHLORIDE CRTAB 20 MEQ TABCR PO SCH (11:07)
[2024-01-08] MEDS: SODIUM CHLORIDE 0.9% 1,000 ML IV SCH (11:07)
[2024-01-08] MEDS: FUROSEMIDE INJ 20 MG/2 ML VIAL IV SCH (11:07)
--- NOTE | 2024-01-08 11:57 | Cardiology Consultation ---
Date of Consultation January 08, 2024 Assessment & Plan (1) Episode of syncope: (2) Hyponatremia: Plan Telemetry reveals sinus rhythm in the 80s to 90s with first-degree AV block and occasional PACs and PVCs. Continue prior to hospital treatment with metoprolol succinate 25 mg daily. Continued on diltiazem CD1 120 mg daily, Losartan 100 mg daily. Continue Eliquis for stroke prophylaxis. Nephrology input noted and appreciated. Agree with holding HCTZ. History of Present Illness Attending Physician: Theron Fong MD History of Present Illness Mr Chavira is an 79 year old male seen in cardiology consultation per the request of Dr Fong for evaluation of syncope. Patient is known to the undersigned as I have followed him as an outpatient due to his history of paroxysmal atrial fibrillation, paroxysmal supraventricular tachycardia and PVCs. Patient describes that yesterday he was in his normal state of health when he had abrupt onset of dizziness while walking uphill on [address] and fell down. He denies any other recent dizziness or loss of postural tone episodes. At present he is feeling well, supine in bed, receiving IV fluids at 80 mL/h. Allergies Allergy/AdvReac Type Severity Reaction Status Date / Time hydrochlorothiazide AdvReac Intermediate HYPONATREMI Verified 01/08/24 11:12 A Home Medications Medication Instructions Recorded Confirmed Type apixaban 5 mg tablet (Eliquis) 5 mg PO BID 06/01/21 01/07/24 History cholecalciferol (vitamin D3) 25 25 mcg PO QAM 06/01/21 01/07/24 History mcg (1,000 unit) capsule losartan 100 mg tablet 100 mg PO QAM 06/01/21 01/07/24 History atorvastatin 20 mg tablet 20 mg PO QAM 07/15/21 01/07/24 History echinacea 400 mg capsule 400 mg PO UD PRN boost immune 07/15/21 01/07/24 History system loxapine succinate 5 mg capsule 15 mg PO QPM 07/15/21 01/07/24 History hydrochlorothiazide 25 mg tablet 25 mg PO QAM 04/07/22 01/07/24 History docusate sodium 100 mg capsule 100 mg PO BID 07/23/22 01/07/24 History metformin 500 mg tablet,extended 500 mg PO DAILY 07/23/22 01/07/24 History release 24 hr multivitamin with minerals 1 tab PO DAILY 07/23/22 01/07/24 History diltiazem HCl 120 mg 120 mg PO QAM 01/07/24 01/07/24 History capsule,extended release 24 hr metoprolol succinate 25 mg 25 mg PO QPM 01/07/24 01/07/24 History tablet,extended release 24 hr Patient History Medical History Schizophrenia Dx , controlled with meds History of prostate cancer Dx 06/2021; s/p prostatectomy Pre-diabetes On Metformin, Hgb A1C 09/2021 was 5.2 Afib On Eliquis daily--Follows with Dr. Norwood High cholesterol High blood pressure Surgical History History of left cataract extraction History of right cataract extraction History of radical prostatectomy (~10/11/21) History of colonoscopy H/O prostate biopsy History of tonsillectomy and adenoidectomy Family History Father Esophageal cancer Other No family history of adverse response to anesthesia Social History Smoking Status: Never smoker Second Hand Exposure: Yes; Do You Dip or Chew Tobacco: No; Hx Alcohol Use: Yes Alcohol type: beer Hx Substance Use: No Preferred Language: Bulgarian Communication Ability: Effective Visual Impairment: No Limitations Hearing Ability: Normal 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: No Beliefs That Will Affect Care: None marital status: Single Current Living Situation: Alone Current Living Situation Comment: Lives in apartment alone current occupational status: other 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 Other Information That Helps Us Care for You: No Feels Safe at Home: Yes Safety Concerns: Feels Safe At This Time Diet: regular caffeine: Yes Dental Care, Regularly: Yes Physical Activity Frequency: 3-4 Times per Week Assistive Devices: Glasses Review of Systems Review of Systems: All systems reviewed & are unremarkable except as noted in HPI & below Physical Exam Constitutional: WD/WN, vitals as above Respiratory: normal respiratory effort, lungs clear to auscultation Cardiovascular: RRR, no murmur, no edema Gastrointestinal (Abdomen): normal bowel sounds, soft, nontender, no hepatos plenomegaly Neurologic: PERRL, EOMI, accommodation nl, no face palsy, no dysarthria Psychiatric: A+Ox3, euthymic affect Results & Data Vital Signs (Past 12 Hours) Vital Signs Temp Pulse Pulse Resp BP Pulse Ox O2 Del Method 01/08/24 11:03 37.5 C 92 H 16 110/71 95 Room Air 01/08/24 07:48 37.3 C 105 H 16 147/77 H 96 Room Air 01/08/24 07:14 98 H 01/08/24 04:14 37.2 C 94 H 20 135/76 93 Room Air 01/08/24 00:11 36.9 C 90 20 135/77 94 Room Air 01/07/24 23:57 80 Laboratory Results CBC 01/07/24 Range/Units 15:57 WBC 11.84 H (4.8-10.8) K/ul RBC 4.06 L (4.70-6.10) M/uL Hgb 14.1 (14.0-18.0) g/dl Hct 38.0 L (42.0-52.0) % Plt Count 276 (130-400) K/uL Neut # (Auto) 10.23 H (1.40-6.50) K/uL Lymph # (Auto) 0.58 L (1.20-3.40) K/uL [place] # (Auto) 0.96 H (0.11-0.59) K/uL Eos # (Auto) 0.00 (0.00-0.50) K/uL Baso # (Auto) 0.02 (0.00-0.20) K/uL Comprehensive Metabolic Panel 01/07/24 01/07/24 01/08/24 Range/Units 15:57 19:46 00:27 Sodium 125 L 127 L 127 L (136-145) mmol/L Potassium 3.7 3.6 3.6 (3.5-5.1) mmol/L Chloride 92 L 95 L 94 L (98-107) mmol/L Carbon Dioxide 25 22 24 (21-32) mmol/L BUN 9 9 11 (6-23) mg/dl Creatinine 0.94 0.71 0.82 (0.6-1.4) mg/dl Glucose 147 H 124 H 98 (70-99(Fasting)) mg/dl Calcium 8.8 8.2 L 8.2 L (8.6-10.3) mg/dl 01/08/24 Range/Units 08:15 Sodium 128 L (136-145) mmol/L Potassium 3.5 (3.5-5.1) mmol/L Chloride 95 L (98-107) mmol/L Carbon Dioxide 23 (21-32) mmol/L BUN 10 (6-23) mg/dl Creatinine 0.72 (0.6-1.4) mg/dl Glucose 114 H (70-99(Fasting)) mg/dl Calcium 8.2 L (8.6-10.3) mg/dl Intake and Output 01/07/24 01/08/24 01/08/24 22:59 06:59 14:59 Intake Total 252.333 / 452.333 200 / 452.333 Balance 252.333 / 452.333 200 / 452.333 Intake: IV 252.333 / 252.333 Sodium Chloride 0.9% 1,000 ml @ 252.333 / 252.333 80 mls/hr IV .[id number] [facility] Rx#: [id number] Oral 200 / 200 Other: Other Intake Source sips Weight 89.8 kg Weight Measurement Method Standing Scale Diagnostic Findings EKG performed 01/07/2024 at 1626 and interpreted independently: Sinus rhythm at 90 bpm with first-degree AV block, WI interval 230 ms, occasional premature atrial contractions. Age-indeterminate septal infarction pattern noted limited to lead V2, likely due to lead placement. Echocardiogram: Technically limited study, grossly normal biventricular systolic function.
--- NOTE | 2024-01-08 13:25 | Hospitalist Progress Note ---
Date of Service January 08, 2024 Assessment & Plan (1) Episode of syncope: Plan: Syncope, possible etiologies: Orthostasis -Check for orthostatic vital signs -HCTZ discontinued in light of hyponatremia Rule out CVA -No neurologic symptoms at this time -CT head: Negative CT angiogram head and neck: Unrevealing -Brain MRI ordered Rule out arrhythmia -Has a history of A-fib, PSVT -Already on metoprolol and Eliquis -Currently in sinus rhythm -Monitor on telemetry unit -Conference Services Director consulted No signs and symptoms of seizure (2) Hyponatremia: Plan: Sodium 126 ---> 128 HCTZ discontinued Religion Teacher consulted Started on IV NSS plus Lasix (3) Afib: Plan: Continue metoprolol, Cardizem, Eliquis (4) HLD (hyperlipidemia): Plan: -Chronic, stable, continue atorvastatin 20 mg (5) Schizophrenia: Plan: -Chronic stable, auditory hallucinations. Normal occurrence for this patient, no history of visual hallucinations, no suicidal or homicidal ideations -Continue loxapine succinate 50 mg every evening -Follows with psychiatry with [facility] routinely DVT PPx: apolinar Javiers CODE: Full code Dispo: Lives at home PT and OT evaluation Admission and Anticipated Discharge Date Admission Date: January 07, 2024 Subjective Follow-up for syncopal episode, etc. Sitting up in bed, having lunch, comfortable, not in distress Awake and alert, oriented x 3, answering all questions appropriately Denies dizziness, headache, problems with vision, focal neurologic deficits No active chest pain, shortness of breath, dizziness, palpitations Stated he stood up today and has been walking to the bathroom with no problems No other new symptom Review of Systems Review of Systems: all noted and negative except for above Physical Exam Physical Exam: General- oriented x 3, not in distress, speaks in sentences with no effort or accessory muscle use Eyes- anicteric Neck- no JVD Lungs- clear breath sounds bilaterally, no rales/wheezes Heart- normal rate, regular rhythm; no murmurs Abdomen- normal bowel sounds, nondistended, soft, nontender Extremities- no pretibial edema, no calf tenderness Neuro- alert, oriented x 3; no gross focal neurologic deficits Skin- warm & dry Results & Data Results & Data Vital Signs (Past 12 Hours) Vital Signs Temp Pulse Pulse Resp BP Pulse Ox O2 Del Method 01/08/24 11:03 37.5 C 92 H 16 110/71 95 Room Air 01/08/24 07:48 37.3 C 105 H 16 147/77 H 96 Room Air 01/08/24 07:14 98 H 01/08/24 04:14 37.2 C 94 H 20 135/76 93 Room Air all noted and reviewed including below
[2024-01-08] MEDS: ACETAMINOPHEN 325 MG TAB PO PRN (18:00)
--- NOTE | 2024-01-08 19:05 | XRay Report ---
XR chest 1V portable HISTORY: cough, hypoxia COMPARISON: Chest 04/07/2022. FINDINGS: No pneumothorax. The cardiac silhouette is normal in size. The lungs remain hyperexpanded w ith mild apical predominant emphysematous changes. No evidence for pulmonary edema. No acute fracture s. There is a linear density within the right lower lobe suggestive of subsegmental atelectasis. Smal l left basilar patchy densities may represent atelectasis or a pneumonia. IMPRESSION: Small patchy densities within the base of the left lower lobe. This may represent atelectasis or a pn eumonia. ACT 112: Negative or not required by law. Electronically signed by: Sean Al M.D. 01/08/2024 7:04 PM
--- NOTE | 2024-01-08 21:21 | Magnetic Resonance Report ---
Exam(s): MRI HEAD Without Contrast EXAM: MR Head Without Intravenous Contrast CLINICAL HISTORY: Reason for exam: syncope. TECHNIQUE: Magnetic resonance images of the head/brain without intravenous contrast in multiple planes. COMPARISON: No relevant prior studies available. FINDINGS: Brain: Mild to moderate cerebral atrophy. Chronic periventricular ischemic demyelination changes seen due to small vessel disease. No hemorrhage. Ventricles: Unremarkable. No ventriculomegaly. Bones/joints: Unremarkable. No acute fracture. Sinuses: Unremarkable as visualized. No acute sinusitis. Mastoid air cells: Unremarkable as visualized. No mastoid effusion. Orbits: Unremarkable as visualized. IMPRESSION: No acute infarct Electronically signed by: Newton Alejandro MD 01/08/24 21:19 PM
[2024-01-08] MEDS: LOXAPINE SUCCINATE PO SCH (21:59)
[2024-01-08] MEDS: DOXYCYCLINE HYCLATE 100 MG CAP PO SCH (22:06)
[2024-01-08] MEDS: cefTRIAXone SODIUM 2,000 MG in DEXTROSE 5 % MINI-B 50 ML IV SCH (22:08)
--- NOTE | 2024-01-09 05:56 | Electrocardiogram Report ---
Test Reason : Blood Pressure : / mmHG Vent. Rate : 092 BPM Atrial Rate : 092 BPM P-R Int : 230 ms QRS Dur : 084 ms QT Int : 328 ms P-R-T Axes : 060 -01 076 degrees QTc Int : 405 ms Sinus rhythm with 1st degree A-V block with Premature atrial complexes Septal infarct , age undetermined Abnormal ECG When compared with ECG of 07-APR-2022 14:13, Premature atrial complexes are now Present Confirmed by Juan Montez ([id number]) on 01/09/2024 5:55:56 AM Referred By: REFERRED SELF Confirmed By:Juan Montez
[2024-01-09 08:31] LABS: Hemoglobin 12.6 g/dl (14.0-18.0); Mean Corpuscular Hemoglobin 33.2 pg (25.0-34.0); Mean Corpuscular Volume 94.7 fL (80.0-100.0); Mean Platelet Volume 8.5 fL (9.4-12.4); Platelet Count 196 K/uL (130-400); RDW Standard Deviation 45.2 fL (36.4-46.3); White Blood Count 12.04 K/ul (4.8-10.8)
[2024-01-09 08:48] LABS: Albumin Globulin Ratio 1.4 (0.9-2); Albumin Level 3.3 gm/dl (3.4-5.0); BUN Creatinine Ratio 17.1 (10-20); Bilirubin,Total 1.2 mg/dl (0.2-1.0); Calcium 7.9 mg/dl (8.6-10.3); Creatinine Clr Calc Pharmacy 95.2 ml/min; Est GFR (African American) 99.9 ml/min; Est GFR (Non-African American) 86.2 ml/min; Globulin 2.3 gm/dl (2.5-4.0); Potassium 3.8 mmol/L (3.5-5.1); Total Protein 5.6 gm/dl (6.0-8.3)
[2024-01-09 08:49] LABS: Basophils # (auto) 0.01 K/uL (0.00-0.20); Basophils % (auto) 0.1 %; Echinocytes 2+; Immature Granulocytes # (auto) 0.08 K/uL (0.01-0.20); Immature Granulocytes % (auto) 0.7 %; Lymphocytes # (auto) 0.28 K/uL (1.20-3.40); Lymphocytes % (auto) 2.3 %; Monocytes # (auto) 0.71 K/uL (0.11-0.59); Monocytes % (auto) 5.9 %; Neutrophils # (auto) 10.96 K/uL (1.40-6.50)
[2024-01-09 08:53] LABS: Adenovirus PCR Not Detected (NotDetected); Bordetella parapertussis PCR Not Detected (NotDetected); Bordetella pertussis PCR Not Detected (NotDetected); Chlamydia pneumoniae PCR Not Detected (NotDetected); Coronavirus 229E PCR Not Detected (NotDetected); Coronavirus CoV-2 (COVID19)PCR Not Detected (NotDetected); Coronavirus HKU1 PCR Not Detected (NotDetected); Coronavirus NL63 PCR Not Detected (NotDetected); Coronavirus OC43PCR Not Detected (NotDetected); Human Metapneumovirus PCR Not Detected (NotDetected); Influenza A PCR Not Detected (NotDetected); Influenza B PCR Not Detected (NotDetected); Mycoplasma pneumoniae PCR Not Detected (NotDetected); Parainfluenza Virus 1 PCR Not Detected (NotDetected); Parainfluenza Virus 2 PCR Not Detected (NotDetected); Parainfluenza Virus 3 PCR Not Detected (NotDetected); Parainfluenza Virus 4 PCR Not Detected (NotDetected); Respiratory Syncytial VirusPCR Not Detected (NotDetected); Rhinovirus/Enterovirus PCR Not Detected (NotDetected)
[2024-01-09] MEDS: ADVANCED PROBIOTIC 625 MG CAPSULE PO SCH (08:57)
--- NOTE | 2024-01-09 10:12 | Nephrology Progress Note ---
Date of Service January 09, 2024 Assessment & Plan Admission and Anticipated Discharge Date Admission Date: January 07, 2024 [place] [address] Nephrology Consultation Signed Assessment & Plan (1) Hyponatremia: Acute On chronic Hyponatremia. na was 125 on Admission and now is 131 with some NS infusion and added lasix. rate of correction is fine. Was on HCTZ so have to assume that was causing the problem. Do not restart and list as allergy forever I would not stop the SSRI--restart that. NS infusion 80 ml/hr + iv lasix till discharge No other meds needed for Discharge--stop HCTZ S---making urine . No new issues. Physical Exam Physical Exam: General: awake, alert, no apparent distress, elderly white male Head: Normocephalic, atraumatic ENT: mucous membranes moist Chest: Clear to auscultation, on room air, no adventitious breath sounds Cardiac: Sinus tachycardia, no murmur, no JVD, normal peripheral pulses, good capillary refill Abdominal: Soft, nontender to palpation, no rebound or guarding Extremities: Normal inspection, no peripheral edema or erythema, calfs nontender to palpation Psych: Normal mood and affect, + auditory hallucinations daily , no visual hallucination Neuro: AAO x 3, strength intact bilaterally and rated 5/5, no motor deficits, speech is clear, no peripheral sensory deficits Results & Data Vital Signs (Past 12 Hours) Vital Signs Temp Pulse Pulse Resp BP Pulse Ox O2 Del Method 01/09/24 09:51 36.3 C L 112 H 22 111/64 93 Nasal Cannula 01/09/24 07:53 Nasal Cannula 01/09/24 07:46 36.9 C 92 H 18 123/63 95 Nasal Cannula 01/09/24 07:22 105 H 01/09/24 03:13 36.5 C 103 H 18 127/68 97 Nasal Cannula 01/09/24 03:06 Nasal Cannula 01/08/24 23:10 38.2 C H 104 H 18 112/73 95 Nasal Cannula 01/08/24 22:24 39.1 C H O2 Flow Rate 01/09/24 09:51 3 01/09/24 07:53 2 01/09/24 07:46 2.5 01/09/24 07:22 01/09/24 03:13 2 01/09/24 03:06 2 01/08/24 23:10 2 01/08/24 22:24
--- NOTE | 2024-01-09 13:00 | Hospitalist Progress Note ---
Date of Service January 09, 2024 Assessment & Plan (1) Episode of syncope: (2) Hyponatremia: Plan: Patient presented with a syncopal episode He was found to have hyponatremia; likely secondary to hypovolemic hyponatremia Previously on hydrochlorothiazide. Sodium gradually improving to 131 -CT head: Negative for acute findings CT angiogram head and neck: Unrevealing -Brain MRIno acute stroke Continue on IV fluids as per nephrology Lasix 10 mg twice a day Strict input and output monitoring (3) Acute hypoxic respiratory failure: (4) Pneumonia: Plan: Patient is started to develop episode of fever on January 08, 2024 Chest x-ray done; personally reviewed; left lower lung opacity Respiratory viral panel negative Patient is started on ceftriaxone and doxycycline Blood culture pending Sputum culture pending Obtain procalcitonin Obtain urinalysis Wean oxygen as tolerated to keep SpO2 above 90 to 92% (5) Afib: Plan: Continue metoprolol, Cardizem, Eliquis EKG personally reviewed from a.m.; sinus rhythm with PACs Continue telemonitoring (6) HLD (hyperlipidemia): Plan: -Chronic, stable, continue atorvastatin 20 mg (7) Schizophrenia: Plan: -Chronic stable, auditory hallucinations. Normal occurrence for this patient, no history of visual hallucinations, no suicidal or homicidal ideations -Continue loxapine succinate 50 mg every evening -Follows with psychiatry with [facility] routinely DVT PPx: ashley Javier CODE: Full code Dispo: Lives at home PT and OT evaluation Time spent evaluating patient, direct bedside care, chart review, placing orders, interpretation of diagnostic studies, discussion with consultants, patient, and family members, as well as other required patient management activities is 50 minutes Please note the above document was generated using voice recognition software. It may contain grammatical, syntax or spelling errors. Any formal questions or concerns about the content, text or information contained within the body of this dictation should be directly addressed to the provider for clarification Admission and Anticipated Discharge Date Admission Date: January 07, 2024 Subjective Patient seen and examined at bedside. He reports that he feels better compared to yesterday. Febrile overnight; no fever in AM. Review of Systems Review of Systems: All systems reviewed & are unremarkable except as noted in Subjective Physical Exam Physical Exam: General- oriented x 3, not in distress, speaks in sentences with no effort or accessory muscle use Eyes- anicteric Neck- no JVD Lungs-occasional crackles on left lower lung base Heart- normal rate, regular rhythm; no murmurs Abdomen- normal bowel sounds, nondistended, soft, nontender Extremities- no pretibial edema, no calf tenderness Neuro- alert, oriented x 3; no gross focal neurologic deficits Skin- warm & dry Results & Data Results & Data Vital Signs (Past 12 Hours) Vital Signs Temp Pulse Pulse Resp BP Pulse Ox O2 Del Method 01/09/24 11:36 36.8 C 95 H 18 121/74 95 Nasal Cannula 01/09/24 09:51 36.3 C L 112 H 22 111/64 93 Nasal Cannula 01/09/24 07:53 Nasal Cannula 01/09/24 07:46 36.9 C 92 H 18 123/63 95 Nasal Cannula 01/09/24 07:22 105 H 01/09/24 03:13 36.5 C 103 H 18 127/68 97 Nasal Cannula 01/09/24 03:06 Nasal Cannula O2 Flow Rate 01/09/24 11:36 3.5 01/09/24 09:51 3 01/09/24 07:53 2 01/09/24 07:46 2.5 01/09/24 07:22 01/09/24 03:13 2 01/09/24 03:06 2
[2024-01-09] MEDS: CEROVITE ADV FORMULA TAB PO SCH (13:31)
[2024-01-09 15:39] LABS: Appearance Urine Clear (Clear); Bacteria Urine Automated Negative (Negative); Bilirubin Urine Negative (Negative); Blood Urine 3+ (Negative); Cast Urine Automated 0 /lpf (0-5); Color Urine Yellow; Glucose Urine UA Negative (Negative); Ketones Urine 1+ (Negative); Leukocyte Esterase Urine Negative (Negative); Nitrite Urine Negative (Negative); Protein Urine 1+ (Negative); RBC Urine Automated >30 /hpf (0-4); Specific Gravity Urine 1.015 (1.000-1.030); Urobilinogen Urine Negative (Negative)
[2024-01-09] MEDS: AMANTADINE HCL 100 MG CAPSULE PO SCH (17:47)
[2024-01-10 07:06] LABS: Basophils # (auto) 0.01 K/uL (0.00-0.20); Basophils % (auto) 0.1 %; Eosinophils # (auto) 0.01 K/uL (0.00-0.50); Eosinophils % (auto) 0.1 %; Hematocrit (blood only) 34.3 % (42.0-52.0); Hemoglobin 11.8 g/dl (14.0-18.0); Immature Granulocytes # (auto) 0.04 K/uL (0.01-0.20); Immature Granulocytes % (auto) 0.5 %; Lymphocytes # (auto) 0.35 K/uL (1.20-3.40); Lymphocytes % (auto) 4.1 %; Mean Corpuscular Hemoglobin 33.1 pg (25.0-34.0); Mean Corpuscular Hgb Conc 34.4 g/dL (32.0-36.0); Mean Corpuscular Volume 96.1 fL (80.0-100.0); Mean Platelet Volume 9.1 fL (9.4-12.4); Monocytes % (auto) 7.1 %; Neutrophils # (auto) 7.45 K/uL (1.40-6.50); Neutrophils % (auto) 88.1 %; Platelet Count 206 K/uL (130-400); RDW Coefficient of Variation 13.2 % (11.5-14.5); RDW Standard Deviation 46.9 fL (36.4-46.3); Red Blood Count 3.57 M/uL (4.70-6.10); White Blood Count 8.46 K/ul (4.8-10.8)
[2024-01-10 07:16] LABS: Albumin Globulin Ratio 1.3 (0.9-2); Albumin Level 3.2 gm/dl (3.4-5.0); BUN Creatinine Ratio 18.3 (10-20); Creatinine Clr Calc Pharmacy 88.2 ml/min; Est GFR (African American) 96.8 ml/min; Est GFR (Non-African American) 83.5 ml/min; Globulin 2.5 gm/dl (2.5-4.0); Total Protein 5.7 gm/dl (6.0-8.3)
[2024-01-10] MEDS: METOPROLOL SUCC 25MG EXT REL TAB PO SCH (12:09)
--- NOTE | 2024-01-10 12:19 | Cardiology Progress Note ---
Date of Service January 10, 2024 Assessment & Plan (1) Episode of syncope: (2) Hyponatremia: (3) Pneumonia: (4) PSVT (paroxysmal supraventricular tachycardia): Plan Telemetry reveals sinus rhythm in the 80s to 90s with first-degree AV block and occasional PACs and PVCs. Agree with increasing metoprolol succinate to 25 mg BID. Continued on diltiazem CD 120 mg daily, Losartan 100 mg daily. Continue Eliquis for stroke prophylaxis given h/o PAF. Sodium improved. Agree with holding HCTZ. Admission and Anticipated Discharge Date Admission Date: January 07, 2024 Subjective Pt seen in cardiology follow up. Denies complaints. Had fever on 01/07 and 01/08 that is improved. Telemetry reveals SR and sinus tachycardia with rate of around 100 bpm with occasional PVCs and brief runs of atrial tachycardia ups to 160s bpm. Physical Exam Constitutional: WD/WN, vitals as above Respiratory: normal respiratory effort, lungs clear to auscultation Cardiovascular: RRR, no murmur, no edema Gastrointestinal (Abdomen): normal bowel sounds, soft, nontender, no hepatosplenomegaly Neurologic: PERRL, EOMI, accommodation nl, no face palsy, no dysarthria Psychiatric: A+Ox3, euthymic affect Results & Data Vital Signs (Past 12 Hours) Vital Signs Temp Pulse Resp BP Pulse Ox O2 Del Method O2 Flow Rate 01/10/24 10:57 36.8 C 130 H 18 144/64 H 93 Room Air 01/10/24 07:18 36.6 C 101 H 18 106/58 L 95 Nasal Cannula 3 01/10/24 03:07 37.0 C 18 106/67 92 Nasal Cannula 3 01/10/24 03:07 97 H 01/10/24 03:02 37.5 C 107 H 18 100/62 93 Nasal Cannula 3
--- NOTE | 2024-01-10 12:59 | Hospitalist Progress Note ---
Date of Service January 10, 2024 Assessment & Plan (1) Episode of syncope: (2) Hyponatremia: Plan: Patient presented with a syncopal episode He was found to have hyponatremia; likely secondary to hypovolemic hyponatremia Previously on hydrochlorothiazide. Sodium gradually improving to 133 -CT head: Negative for acute findings CT angiogram head and neck: Unrevealing -Brain MRIno acute stroke Continue on IV fluids as per nephrology Lasix 10 mg twice a day Strict input and output monitoring PT OT evaluation completed; patient will likely need rehab (3) Acute hypoxic respiratory failure: (4) Pneumonia: Plan: Patient is started to develop episode of fever on January 08, 2024 Chest x-ray done; personally reviewed; left lower lung opacity Respiratory viral panel negative Pro-Guerrero elevated Urinalysis not suggestive of infection Patient is started on ceftriaxone and doxycycline Blood culture no growth in 24 hours Wean oxygen as tolerated to keep SpO2 above 90 to 92% (5) Afib: Plan: Continue on Cardizem, Eliquis EKG personally reviewed from a.m.; sinus rhythm with PACs Metoprolol dose increased to 25 mg twice daily Continue telemonitoring (6) HLD (hyperlipidemia): Plan: -Chronic, stable, continue atorvastatin 20 mg (7) Schizophrenia: Plan: -Chronic stable, auditory hallucinations. Normal occurrence for this patient, no history of visual hallucinations, no suicidal or homicidal ideations -Continue loxapine succinate 50 mg every evening -Follows with psychiatry with [facility] routinely DVT PPx: ashley Javier CODE: Full code Dispo: Lives at home PT and OT evaluation Time spent evaluating patient, direct bedside care, chart review, placing orders, interpretation of diagnostic studies, discussion with consultants, patient, and family members, as well as other required patient management activities is 50 minutes Please note the above document was generated using voice recognition software. It may contain grammatical, syntax or spelling errors. Any formal questions or concerns about the content, text or information contained within the body of this dictation should be directly addressed to the provider for clarification Admission and Anticipated Discharge Date Admission Date: January 07, 2024 Subjective Patient seen and examined at bedside. He reports she feels tired and slightly disoriented. He reports issues with mobility while working with occupational therapy No significant overnight events. Review of Systems Review of Systems: All systems reviewed & are unremarkable except as noted in Subjective Physical Exam Physical Exam: General- oriented x 3, not in distress, speaks in sentences with no effort or accessory muscle use Eyes- anicteric Neck- no JVD Lungs-occasional crackles on left lower lung base Heart- normal rate, regular rhythm; no murmurs Abdomen- normal bowel sounds, nondistended, soft, nontender Extremities- no pretibial edema, no calf tenderness Neuro- alert, oriented x 3; no gross focal neurologic deficits Skin- warm & dry Results & Data Results & Data Vital Signs (Past 12 Hours) Vital Signs Temp Pulse Resp BP Pulse Ox O2 Del Method O2 Flow Rate 01/10/24 10:57 36.8 C 130 H 18 144/64 H 93 Room Air 01/10/24 07:18 36.6 C 101 H 18 106/58 L 95 Nasal Cannula 3 01/10/24 03:07 37.0 C 18 106/67 92 Nasal Cannula 3 01/10/24 03:07 97 H 01/10/24 03:02 37.5 C 107 H 18 100/62 93 Nasal Cannula 3
--- NOTE | 2024-01-10 14:18 | Nephrology Progress Note ---
Date of Service January 10, 2024 Assessment & Plan Admission and Anticipated Discharge Date Admission Date: January 07, 2024 Subjective Assessment & Plan (1) Hyponatremia: Acute On chronic Hyponatremia. na was 125 on Admission and now is 131 with some NS infusion and added lasix. rate of correction is fine. Was on HCTZ so have to assume that was causing the problem. Do not restart and list as allergy forever I would not stop the SSRI--restart that. Stop NS and Stop lasix--na is now 133. No other meds needed at Discharge--stop HCTZ S---making urine. 1100 ml. No new issues. Physical Exam Physical Exam: General: awake, alert, no apparent distress, elderly white male Head: Normocephalic, atraumatic ENT: mucous membranes moist Chest: Clear to auscultation, on room air, no adventitious breath sounds Cardiac: Sinus tachycardia, no murmur, no JVD, normal peripheral pulses, good capillary refill Abdominal: Soft, nontender to palpation, no rebound or guarding Extremities: Normal inspection, no peripheral edema or erythema, calfs nontender to palpation Psych: Normal mood and affect, + auditory hallucinations daily , no visual hallucination Neuro: AAO x 3, strength intact bilaterally and rated 5/5, no motor deficits, speech is clear, no peripheral sensory deficits Results & Data Vital Signs (Past 12 Hours) Vital Signs Temp Pulse Resp BP Pulse Ox O2 Del Method O2 Flow Rate 01/10/24 10:57 36.8 C 130 H 18 144/64 H 93 Room Air 01/10/24 07:18 36.6 C 101 H 18 106/58 L 95 Nasal Cannula 3 01/10/24 03:07 37.0 C 18 106/67 92 Nasal Cannula 3 01/10/24 03:07 97 H 01/10/24 03:02 37.5 C 107 H 18 100/62 93 Nasal Cannula 3
[2024-01-11 07:07] LABS: Basophils # (auto) 0.01 K/uL (0.00-0.20); Basophils % (auto) 0.2 %; Eosinophils # (auto) 0.12 K/uL (0.00-0.50); Hematocrit (blood only) 35.2 % (42.0-52.0); Hemoglobin 12.3 g/dl (14.0-18.0); Immature Granulocytes # (auto) 0.03 K/uL (0.01-0.20); Immature Granulocytes % (auto) 0.5 %; Lymphocytes # (auto) 0.57 K/uL (1.20-3.40); Lymphocytes % (auto) 9.4 %; Mean Corpuscular Hemoglobin 33.1 pg (25.0-34.0); Mean Corpuscular Hgb Conc 34.9 g/dL (32.0-36.0); Mean Corpuscular Volume 94.6 fL (80.0-100.0); Mean Platelet Volume 8.9 fL (9.4-12.4); Monocytes # (auto) 0.62 K/uL (0.11-0.59); Monocytes % (auto) 10.2 %; Neutrophils # (auto) 4.72 K/uL (1.40-6.50); Neutrophils % (auto) 77.7 %; Platelet Count 232 K/uL (130-400); RDW Coefficient of Variation 13.6 % (11.5-14.5); RDW Standard Deviation 47.5 fL (36.4-46.3); Red Blood Count 3.72 M/uL (4.70-6.10); White Blood Count 6.07 K/ul (4.8-10.8)
[2024-01-11 07:47] LABS: Albumin Globulin Ratio 1.2 (0.9-2); BUN Creatinine Ratio 21.5 (10-20); Calcium 8.1 mg/dl (8.6-10.3); Creatinine Clr Calc Pharmacy 91.6 ml/min; Est GFR (African American) 98.3 ml/min; Est GFR (Non-African American) 84.8 ml/min; Globulin 2.5 gm/dl (2.5-4.0); Potassium 4.6 mmol/L (3.5-5.1); Total Protein 5.5 gm/dl (6.0-8.3)
[2024-01-11] MEDS: AMANTADINE HCL 100 MG CAPSULE PO SCH (08:56)
[2024-01-11] MEDS: PNEUMOCOCCAL VACCINE (PCV20) 20-VAL CONJ-DIP CRM/PF 0.5 ML SYR IM ONE (11:30)
--- NOTE | 2024-01-11 13:14 | Discharge Summary ---
Date of Service January 11, 2024 Admission HPI Per Admitting Provider This is an 79-year-old male with PMHx of schizophrenia, HTN, history of prostate cancer, prediabetes, atrial fibrillation who presents to the hospital after a fall sustained outside while he was walking home from the pharmacy. When he realized what happened, there were about 6 people around him calling EMS. Pt notes that he had a large bowel movement early this morning and felt dizzy after this as well. Admits to not feeling great early in the morning. He reports feeling lightheaded before his fall, denies any chest pain, shortness of breath. This is new today for him, and notes he felt dizzy again when standing to use the bathroom while here in the ER. He has been taking HCTZ 25 mg daily and loxapine 15 mg daily. Pt states his PO intake was normal recently, he has been trying to drink about 8 glasses of water daily. Pt lives alone. He has meals on wheels at home. Pt reports has a sister in [place], but otherwise has neighbors who help him. As far as schizophrenia symptoms, the patient has audito ry hallucinations as part of daily life, nonthreatening, slightly irritating at times but he has dealt with this since the early . Admission Exam Per Admitting Provider General: awake, alert, no apparent distress, elderly white male Head: Normocephalic, atraumatic ENT: PERRL, EOMI, no pharyngeal exudate, mucous membranes moist Chest: Clear to auscultation, on room air, no adventitious breath sounds Cardiac: Sinus tachycardia, no murmur, no JVD, normal peripheral pulses, good capillary refill Abdominal: NABS x 4 quadrants, soft, nondistended, nontender to palpation, no rebound or guarding Extremities: Normal inspection, no peripheral edema or erythema, calfs nontender to palpation Psych: Normal mood and affect, + auditory hallucinations daily , no visual hallucination Neuro: AAO x 3, strength intact bilaterally and rated 5/5, no motor deficits, speech is clear, no peripheral sensory deficits Principal Diagnosis Syncope Hyponatremia Pneumonia POA Discharge Exam General- oriented x 3, not in distress, speaks in sentences with no effort or accessory muscle use Eyes- anicteric Neck- no JVD Lungs-occasional crackles on left lower lung base Heart- normal rate, regular rhythm; no murmurs Abdomen- normal bowel sounds, nondistended, soft, nontender Extremities- no pretibial edema, no calf tenderness Neuro- alert, oriented x 3; no gross focal neurologic deficits Skin- warm & dry Discharge Data Allergies Allergy/AdvReac Type Severity Reaction Status Date / Time hydrochlorothiazide AdvReac Intermediate HYPONATREMI Verified 01/08/24 11:12 A Consultations 01/07/24 18:10 ED Decision to Admit Stat 01/07/24 19:16 Consult Nephrology Routine 01/08/24 08:20 Consult Cardiology Routine Ordered Studies 01/07/24 16:14 CT angio head w con Stat CT angio neck with con Stat CT cervical spine wo con Stat 01/07/24 16:15 CT head/brain wo con Stat 01/08/24 13:20 MRI Brain [MR brain wo con] Routine Hospital Course (1) Episode of syncope: (2) Hyponatremia: Patient presented with a syncopal episode He was found to have hyponatremia; likely secondary to hypovolemic hyponatremia Previously on hydrochlorothiazide. Sodium gradually improving to 133 -CT head: Negative for acute findings CT angiogram head and neck: Unrevealing -Brain MRIno acute stroke During the hospitalization, patient underwent evaluation by nephrology. He was started on IV fluids and Lasix. Hydrochlorothiazide was discontinued Patient's sodium improved gradually to 134 PT OT evaluation was done; patient was thought to be performing lower from his baseline. Patient was discharged to acute rehab. Hydrochlorothiazide was stopped at discharge (3) Acute hypoxic respiratory failure: (4) Pneumonia: Patient is started to develop episode of fever on January 08, 2024 Chest x-ray done; personally reviewed; left lower lung opacity Respiratory viral panel negative Pro-Guerrero elevated Urinalysis not suggestive of infection Patient is started on ceftriaxone and doxycycline Initially required supplemental oxygen which was weaned off. At discharge, he was placed on cefdinir and doxycycline to complete 7-day course (5) Afib: Continue on Cardizem, Eliquis Metoprolol dose increased to 25 mg twice daily as recommended by cardiology (6) HLD (hyperlipidemia): -Chronic, stable, continue atorvastatin 20 mg (7) Schizophrenia: -Chronic stable, auditory hallucinations. Normal occurrence for this patient, no history of visual hallucinations, no suicidal or homicidal ideations -Continue loxapine succinate 50 mg every evening -Follows with psychiatry with [facility] routinely Please note the above document was generated using voice recognition software. It may contain grammatical, syntax or spelling errors. Any formal questions or concerns about the content, text or information contained within the body of this dictation should be directly addressed to the provider for clarification Total Time Total Time Spent Total Time Spent (In Minutes): 45 Total Time Includes: Examination of the Patient, Discharge Planning, Medication Reconciliation, Communication With Other Providers and Other Discharge Plan Discharge Items Patient Disposition: Transfer Inpatient Rehab Fac Reason For Visit: SYNCOPAL EPISODE Discharge Diagnosis: Syncope Hyponatremia Pneumonia Activity: Resume your previous activity Non-emergency contact: Primary Care Provider Call non-emergency contact if: you have any medication questions and your symptoms worsen Follow-up/Referrals: Jamari Guidry MD [Primary Care Provider] - Diet: Regular Addtl Attending Provider Instructions: You were admitted to the hospital due to low sodium level and syncopal episode. You were evaluated by cardiology and nephrology. You are recommended to stop hydrochlorothiazide. Cardiology recommended that your metoprolol dose is increased to 25 mg twice a day You were also prescribed cefdinir and doxycycline for 4 more days to complete treatment for pneumonia Pending Studies at Discharge: No Stand-Alone Forms: My [facility] Skilled Items Patient informed of condition?: Yes DNR: No Discharge Level of Care: Acute rehab Communicable Disease: No Discharge Prognosis: Stable Lines: None Urinary Catheter: No Medications and DC Order Prescriptions: New doxycycline hyclate 100 mg Capsule 100 mg PO BID 4 Days Qty: 8 0RF metoprolol succinate 25 mg Tablet Extended Release 24 Hr 25 mg PO BID Qty: 60 0RF cefdinir 300 mg capsule 300 mg PO BID 4 Days Qty: 8 0RF Continued losartan 100 mg tablet 100 mg PO QAM cholecalciferol (vitamin D3) 25 mcg (1,000 unit) capsule 25 mcg PO QAM Eliquis 5 mg tablet 5 mg PO BID atorvastatin 20 mg Tablet 20 mg PO QAM echinacea 400 mg Capsule 400 mg PO UD PRN (Reason: boost immune system) Rx Instructions: use for cold symptoms loxapine succinate 5 mg Capsule 15 mg PO QPM docusate sodium 100 mg capsule 100 mg PO BID metformin 500 mg tablet extended release 24 hr 500 mg PO DAILY multivitamin with minerals Tablet 1 tab PO DAILY diltiazem HCl 120 mg capsule,extended release 24hr 120 mg PO QAM amantadine HCl 100 mg tablet 100 mg TID Discontinued hydrochlorothiazide 25 mg Tablet 25 mg PO QAM metoprolol succinate 25 mg tablet extended release 24 hr 25 mg PO QPM Discharge Orders: Discharge Order (Routine); Ordered 01/11/24 Ordered By: Adama Patel Admission Data Admit Date/Time: 01/07/24 19:16 Attending Provider: Adama Patel Admit Provider: Myrna Perry Primary Care Provider: Jamari Guidry Other Providers: Georges Palomino; Myrna Perry; Remi Norwood; [facility]
--- NOTE | 2024-01-11 21:35 | Electrocardiogram Report ---
Test Reason : Blood Pressure : / mmHG Vent. Rate : 107 BPM Atrial Rate : 107 BPM P-R Int : 232 ms QRS Dur : 090 ms QT Int : 320 ms P-R-T Axes : 000 -28 081 degrees QTc Int : 427 ms Sinus tachycardia with 1st degree A-V block with occasional Premature ventricular complexes Premature atrial complexes Low voltage QRS When compared with ECG of 07-JAN-2024 16:26, Premature ventricular complexes are now Present Criteria for Septal infarct are no longer Present Confirmed by Juan Montez ([id number] on 01/11/2024 9:34:32 PM Referred By: REFERRED SELF Confirmed By:Juan Montez
== END 2024-01-11 16:55 | DRG 193 ==
LOC: ED 15:35 → 2N 19:16 → SUATTDRO 19:16 → 2N 20:27